=== PATIENT | male | born 1950 | race Caucasian/White ===

== ENCOUNTER 2016-09-12 18:39 | Inpatient (IN) | payer BC ==
[2016-09-12 23:10] LABS: Hematocrit 50 % (42-52); Hemoglobin 16.4 g/dl (14.0-18.0); Mean Corpuscular HGB Conc 33 g/dl (31-36); Mean Corpuscular Hemoglobin 28 pg (27-31); Mean Corpuscular Volume 86 fL (80-94); Mean Platelet Volume 10 um3 (7.4-10.4); Red Blood Count 5.76 10^6/ul (4.0-5.4); Red Cell Distribution Width 13 % (10.5-15); White Blood Count 6.8 10^3/ul (3.5-10.8)
[2016-09-12 23:43] LABS: ALT 22 U/L (7-52); AST 14 U/L (13-39); Albumin 4.4 g/dL (3.2-5.2); Alkaline Phosphatase 70 U/L (34-104); Anion Gap 9 mmol/L (2-11); BUN/Creatinine Ratio 16.7 (8-20); Blood Urea Nitrogen 19 mg/dL (6-24); CO2 Carbon Dioxide 26 mmol/L (22-32); Calcium 9.7 mg/dL (8.6-10.3); Chloride 101 mmol/L (101-111); EGFR African American 82.4 (>60); EGFR Non-African American 64.1 (>60); Glucose 149 mg/dL (70-100); Potassium 3.8 mmol/L (3.5-5.0); Sodium 136 mmol/L (133-145); Total Protein 7.4 g/dL (6.4-8.9)
[2016-09-12 23:48] LABS: Acetaminophen < 15 mcg/mL; Alcohol < 10 mg/dL (<10); Salicylate < 2.50 mg/dL (<30)
[2016-09-12 23:59] LABS: TSH (Thyroid Stimulating Horm) 4.46 mcIU/mL (0.34-5.60)
--- NOTE | 2016-09-13 00:31 | ED ---
Joanna Powers Salem, scribed for Adam Monique MD on 09/12/16 at 2251 . Complex/Multi-Sys Presentation - HPI Summary HPI Summary: Patient is a 66 y/o M who presents to the ED with loss of appetite for the past 1.5-2 weeks. He states that he has had very little to eat and drink since. He denies nausea or any pain, but reports trouble sleeping. Pt had a 15-20minute TIA on 08/24/2016 and pt followed up with his PCP a week afterwards. 5 days ago he saw his PCP again for this complaint. He states that he changed some of his medications, put him on Ativan and on Zoloft for depression, and cut down his DM medication to 1 metformin in the morning and evening. Pt lost 20lbs in 18 days. PMHx of DM. - History Of Current Complaint Chief Complaint: EDWeakness Time Seen by Provider: 09/12/16 22:36 Hx Obtained From: Patient Onset/Duration: Gradual Onset, Lasting Weeks, Still Present Timing: Constant Severity Currently: Moderate Severity Initially: Moderate Location: Negative Aggravating Factor(s): Nothing. Alleviating Factor(s): Nothing. Associated Signs And Symptoms: Positive: Other - Loss of appetite.. Negative: Nausea - Allergies/Home Medications Allergies/Adverse Reactions: Allergies Allergy/AdvReac Type Severity Reaction Status Date / Time Penicillin G Allergy Rash Verified 09/12/16 20:19 PMH/Surg Hx/FS Hx/Imm Hx Endocrine/Hematology History: Reports: Hx Diabetes Cardiovascular History: Reports: Hx Hypertension - Surgical History Surgery Procedure, Year, and Place: TITANIUM PLATE @C-3 PER PT. 2000 Infectious Disease History: No Infectious Disease History: Denies: Traveled Outside the [place] in Last 30 Days - Family History Known Family History: Positive: Other - No FMHx of dizziness. - Social History Alcohol Use: None Hx Substance Use: No Substance Use Type: Reports: None Hx Tobacco Use: No Smoking Status (MU): Never Smoked Tobacco Review of Systems Positive: Other - No pain. Trouble sleeping. Positive: Other - Loss of appetite. . Negative: Nausea All Other Systems Reviewed And Are Negative: Yes Physical Exam Triage Information Reviewed: Yes Vital Signs On Initial Exam: Initial Vitals Temp Pulse Resp BP Pulse Ox 97.2 F 90 16 152/79 98 09/12/16 18:47 06/19/17 18:47 09/12/16 18:47 09/12/16 18:47 09/12/16 18:47 Vital Signs Reviewed: Yes Appearance: Positive: Well-Appearing, No Pain Distress Skin: Positive: Warm, Skin Color Reflects Adequate Perfusion, Dry Head/Face: Positive: Normal Head/Face Inspection Eyes: Positive: Normal ENT: Positive: Other - DMM. Neck: Positive: Supple, Nontender Respiratory/Lung Sounds: Positive: Clear to Auscultation, Breath Sounds Present Cardiovascular: Positive: RRR Abdomen Description: Positive: Nontender, Soft Bowel Sounds: Positive: Present Musculoskeletal: Positive: Normal Neurological: Positive: Normal Psychiatric: Positive: Other - Flat affect. Diagnostics - Vital Signs Vital Signs Temp Pulse Resp BP Pulse Ox 09/12/16 21:40 98.3 F 62 18 149/83 99 09/12/16 20:15 97.6 F 87 18 123/76 100 09/12/16 18:47 97.2 F 90 16 152/79 98 - Laboratory Lab Results: Lab Results 09/12/16 09/12/16 Range/Units 22:55 22:55 WBC 6.8 (3.5-10.8) 10^3/ul RBC 5.76 H (4.0-5.4) 10^6/ul Hgb 16.4 (14.0-18.0) g/dl Hct 50 (42-52) % MCV 86 (80-94) fL MCH 28 (27-31) pg MCHC 33 (31-36) g/dl RDW 13 (10.5-15) % Plt Count 125 L (150-450) 10^3/ul MPV 10 (7.4-10.4) um3 Neut % (Auto) 47.0 (38-83) % Lymph % (Auto) 41.6 (25-47) % Cocke % (Auto) 9.0 (1-9) % Eos % (Auto) 1.8 (0-6) % Baso % (Auto) 0.6 (0-2) % Absolute Neuts (auto) 3.2 (1.5-7.7) 10^3/ul Absolute Lymphs (auto) 2.8 (1.0-4.8) 10^3/ul Absolute Monos (auto) 0.6 (0-0.8) 10^3/ul Absolute Eos (auto) 0.1 (0-0.6) 10^3/ul Absolute Basos (auto) 0 (0-0.2) 10^3/ul Absolute Nucleated RBC 0.01 10^3/ul Nucleated RBC % 0.2 Sodium 136 (133-145) mmol/L Potassium 3.8 (3.5-5.0) mmol/L Chloride 101 (101-111) mmol/L Carbon Dioxide 26 (22-32) mmol/L Anion Gap 9 (2-11) mmol/L BUN 19 (6-24) mg/dL Creatinine 1.14 (0.67-1.17) mg/dL Est GFR ( Amer) 82.4 (>60) Est GFR (Non-Af Amer) 64.1 (>60) BUN/Creatinine Ratio 16.7 (8-20) Glucose 149 H (70-100) mg/dL Calcium 9.7 (8.6-10.3) mg/dL Total Bilirubin 1.00 (0.2-1.0) mg/dL AST 14 (13-39) U/L ALT 22 (7-52) U/L Alkaline Phosphatase 70 (34-104) U/L Total Protein 7.4 (6.4-8.9) g/dL Albumin 4.4 (3.2-5.2) g/dL Globulin 3.0 (2-4) g/dL Albumin/Globulin Ratio 1.5 (1-3) TSH 4.46 (0.34-5.60) mcIU/mL Salicylates < 2.50 (<30) mg/dL Acetaminophen < 15 mcg/mL Serum Alcohol < 10 (<10) mg/dL Result Diagrams: 09/12/16 22:55 09/12/16 22:55 Lab Statement: Any lab studies that have been ordered have been reviewed, and results considered in the medical decision making process. Complex Multi-Symp Course/Dx Course Of Treatment: Mr. White is willing to speak with the mental health stained glass installer about his depression and is medically cleared. - Diagnoses Provider Diagnoses: Depression Discharge - Discharge Plan Condition: Stable Disposition: OTHER Discharge Disposition Comment: Pending mental health evaluation. Referrals: Edwardo Gee MD [Primary Care Provider] - The documentation as recorded by the Joanna ga Salem accurately reflects the service I personally performed and the decisions made by me, Adam Monique MD.
--- NOTE | 2016-09-13 02:25 | ED ---
Progress - Progress Note Progress Note: pt admitted with depression in stable condition to the mental health unit - Consult/PCP Time Called: 12:30 Course/Dx - Course Course Of Treatment: Mr. White is willing to speak with the mental health enamel pulverizer about his depression and is medically cleared. - Diagnoses Provider Diagnoses: Depression
[2016-09-13] MEDS ORDERED: diPHENhydraMINE PO* 50 MG ONE (02:34)
[2016-09-13] MEDS ORDERED: Acetaminophen TAB* 325 MG PO PRN (03:58)
[2016-09-13] MEDS ORDERED: Al Hydrox/Mg Hydrox/Simet LIQ* 30 ML UDC PO PRN (03:58)
[2016-09-13] MEDS: Vitamin THERAPEUTIC TAB PO SCH ×2 (09:10→09:31)
[2016-09-13] MEDS ORDERED: Mirtazapine TAB* 15 MG PO PRN (16:22)
[2016-09-13] MEDS: metFORMIN* 500 MG TAB PO SCH (17:26)
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
[2016-09-13] MEDS: Atorvastatin* 40 MG TAB PO SCH (21:09)
[2016-09-14] MEDS: Metoprolol Succinate XL TAB* 25 MG PO SCH (08:57)
[2016-09-14] MEDS: Vitamin THERAPEUTIC TAB PO SCH (08:57)
[2016-09-14] MEDS: metFORMIN* 500 MG TAB PO SCH ×2 (08:57→16:58)
[2016-09-14] MEDS: Ramipril CAP* 10 MG PO SCH (08:58)
[2016-09-14] MEDS: Sertraline* 100 MG TAB PO SCH (08:58)
--- NOTE | 2016-09-14 12:27 | PN ---
Subjective - Subjective Service Type: 98637 Hosp care 25 min moderate complexity Subjective: Patient reports ongoing significant depression. Patient reports getting only 1 hour of sleep last night. On approach, patient is visible in the milieu, but is not in the concurrent group. He continues to be flat in affect, PMR noted, and patient continues to be delayed in response. TP is linear and GD. Patient is med compliant. He reports 25% of breakfast eaten. Patient reports no SI/HI. ECT management for this episode of depression was recommended to patient as he has hx of treatment resistant depression. Patient was educated on ECT process. He was shown a video which shows ECT as it happens in the treatment room. He was able to view the placement of the IV, administration of muscle relaxant, the seizure, and the use of the oxygen bag mask during treatment. He was able to hear testimony of 3 patient's and how they responded to ECT. Patient reported he would like to go forward with ECT. In regard to patient's High suicide risk, patient is willing to have his daughter (Brittany Schwartz#[phone]) take possession of the 22 ana maría rifle, he does not have a pistol. Objective - Appearance Appearance: Healthy Appearing Dysmorphic Features: No Hygiene: Normal Grooming: Fairly Well Kept - Behavior Psychomotor Activities: Abnormal-Decreased Exhibits Abnormal Movement: Yes - Attitude and Relatedness Attitude and Relatedness: Cooperative Eye Contact: Poor - Speech Quality: Unpressured Latencies: Short Quantity: Terse - Mood Patient's Decription of Mood: Depressed - Affect Observed Affect: Depressed Affect Consistent with: Dysphoria - Thought Process Patient's Thought Process: Coherent Thought Content: No Passive Wish, No Suicidal Planning, No Homicidal Ideation, No Paranoid Ideation - Sensorium Experiencing Hallucinations: No, Sensorium is Clear Type of Hallucinations: Visual: No, Auditory: No, Command: No - Level of Consciousness Level of Consciousness: Alert Orientation: Yes Intact, Yes Orientated to Time, Yes Orientated to Place, Yes Orientated to Person - Impulse Control Impulse Control: Intact - Insight and Judgement Insight and Judgement: Good - Group Participation Particating in Group Activities: Yes - Medication Management Medication Management Adherence: Yes Assessment - Assessment Merits Inpatient Hospitalization: For Immediate Safety, For Stabilization Inpatient DSM-IV Dx: MDD, R, S w/o PFs Clinical Impression: 66yo male patient with PPHx significant for MDD, R, S and Treatment Resistant Depression self presents to [place] [facility] [place] reporting worsening depressive symptoms associated with SI no plan and also reported an inability to function at home. Patient has hx of TRD and suicide attempt. Family hx significant for depression and patient has family that has completed suicide. Patient has chronic medical issues and distressing financial pressures. Patient has hx of benefit of symptoms with ECT. He's had no care since the 2009 ECT. He presents on this admission with no SI, but is high in risk for suicide. Patient has a firearm in the home. He is med compliant. He has decided to pursue ECT. Plan - Plan Treatment Plan: Name: VANE LOPEZ II Birthdate: 1950 [id number] 1. Continue admission to [facility] for symptom mx. 2. Increase Zoloft from 50mg daily to 150mg po daily. 3. Patient has decided to pursue ECT for TRD. SW to work on referral per insurance approval. 4. Will order ECG as apart of ECT workup. 5. Patient gives staff permission to talk with his daughter(Brittany Schwartz#[phone]) in regard to taking possession of of his 22 ana maría rifle, he does not have a pistol. 6. Continue HTN, DM2, HLD, and Insomnia home meds as Rx'd by PCP. Will hold Meclezine, Ativan, Farxiga and Glimipirmide. 7. Fingerstick BS @ [facility]. 8. Continue compiling collateral information from [facility]-ECT tx and PCP( Pearl saucedo). 9. Patient to participate in milieu activities and groups. Medications: Current Medications Acetaminophen (Tylenol Tab*) 650 mg PO Q4H PRN PRN Reason: PAIN or TEMP > 101 F Al Hydrox/Mg Hydrox/Simethicone (Maalox Plus*) 30 ml PO Q4H PRN PRN Reason: INDIGESTION Atorvastatin Calcium (Lipitor*) 40 mg PO 2100 JOVANNA Last Admin: 09/13/16 21:09 Dose: 40 mg Diphenhydramine HCl (Benadryl Po*) 50 mg PO Q6H PRN PRN Reason: AGITATION/INSOMNIA Last Admin: 09/13/16 02:35 Dose: 50 mg Metformin HCl (Glucophage*) 1,000 mg PO 0800,1700 [facility] Last Admin: 09/14/16 08:57 Dose: 1,000 mg Metoprolol Succinate (Toprol Xl Tab*) 25 mg PO DAILY [facility] Last Admin: 09/14/16 08:57 Dose: 25 mg Mirtazapine (Remeron Tab*) 7.5 mg PO BEDTIME PRN PRN Reason: SLEEP Last Admin: 09/14/16 01:45 Dose: 7.5 mg Multivitamins (Theragran Tab*) 1 tab PO DAILY [facility] Last Admin: 09/14/16 08:57 Dose: 1 tab Ramipril (Altace Cap*) 10 mg PO DAILY [facility] Last Admin: 09/14/16 08:58 Dose: 10 mg Sertraline HCl (Zoloft*) 150 mg PO DAILY [facility] Last Admin: 09/14/16 08:58 Dose: 150 mg - Discharge Plan Discharge Plan: Inpatient Hospitalization Outpatient Program: [facility] Additional Comments: Plan to transfer to a facility with ECT as patient has TRD and has hx of benefit to ECT.
[2016-09-14] MEDS: Atorvastatin* 40 MG TAB PO SCH (20:09)
[2016-09-14] MEDS ORDERED: traZODone TAB* 100 MG PO SCH (21:00)
[2016-09-15 08:23] VITALS: BP 118/64
[2016-09-15] MEDS: Metoprolol Succinate XL TAB* 25 MG PO SCH (08:38)
[2016-09-15] MEDS: metFORMIN* 500 MG TAB PO SCH (08:38)
[2016-09-15] MEDS: Vitamin THERAPEUTIC TAB PO SCH (08:39)
[2016-09-15] MEDS: Sertraline* 100 MG TAB PO SCH (08:39)
[2016-09-15] MEDS: Ramipril CAP* 10 MG PO SCH (08:39)
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
== END 2016-09-15 12:50 | DRG 754 ==
LOC: ED 18:39 → BSU 09-13 02:56
PROVIDERS: ADMIT Psychiatry & Neurology Psychiatry; ATTEND Psychiatry & Neurology Psychiatry
DX: F32.9 Major depressive disorder, single episode, unspecified (principal); E11.9 Type 2 diabetes mellitus without complications; I10 Essential (primary) hypertension; Z79.84 Long term (current) use of oral hypoglycemic drugs; G47.33 Obstructive sleep apnea (adult) (pediatric); E78.5 Hyperlipidemia, unspecified; Z86.73 Personal history of transient ischemic attack (TIA), and cerebral infarction without residual deficits; Z88.0 Allergy status to penicillin; Z81.8 Family history of other mental and behavioral disorders
CPT/HCPCS: 36415; 80053; 80320; 80329; 84443; 85025; 99222; 99232; 99238; A9270-GY; G0480

== ENCOUNTER 2016-11-07 11:03 | Emergency (ER) | payer BC ==
[2016-11-07] MEDS ORDERED: NS 0.9% 1000 ML* 1,000 ML IV ONE (11:31)
[2016-11-07 11:50] LABS: Hematocrit 41 % (42-52); Hemoglobin 13.4 g/dl (14.0-18.0); Mean Corpuscular HGB Conc 33 g/dl (31-36); Mean Corpuscular Hemoglobin 29 pg (27-31); Mean Corpuscular Volume 88 fL (80-94); Mean Platelet Volume 10 um3 (7.4-10.4); Red Blood Count 4.66 10^6/ul (4.0-5.4); Red Cell Distribution Width 14 % (10.5-15); White Blood Count 6.7 10^3/ul (3.5-10.8)
[2016-11-07 12:05] LABS: Albumin 4.2 g/dL (3.2-5.2); BUN/Creatinine Ratio 12.8 (8-20); Calcium 9.3 mg/dL (8.6-10.3); EGFR African American 102.9 (>60); Globulin 2.7 g/dL (2-4); Potassium 4.1 mmol/L (3.5-5.0); Total Bilirubin 0.8 mg/dL (0.2-1.0); Total Protein 6.9 g/dL (6.4-8.9)
[2016-11-07] MEDS ORDERED: Iodixanol* (CONTRAST) 320 MG/ML 100 ML SDV IV ONE (12:39)
--- NOTE | 2016-11-07 13:46 | RAD ---
HISTORY: Head trauma, recent TIA COMPARISONS: December 07, 2015 TECHNIQUE: Multiple contiguous axial CT scans were obtained of the head without intravenous contrast. FINDINGS: HEMORRHAGE/INFARCT: There is no hemorrhage or acute infarct. MASSES/SHIFT: There is no mass or shift. EXTRA-AXIAL SPACES: There are no extra-axial fluid collections. SULCI AND VENTRICLES: The sulci and ventricles are normal in size and position for the patient's stated age. CEREBRUM: There are no focal parenchymal abnormalities. BRAINSTEM: There are no focal parenchymal abnormalities. CEREBELLUM: There are no focal parenchymal abnormalities. VESSELS: The vessels are grossly normal. PARANASAL SINUSES: The paranasal sinuses are clear. ORBITS: The orbits are unremarkable. BONES AND SOFT TISSUE: No bone or soft tissue abnormalities are noted. OTHER: None IMPRESSION: NO ACUTE INTRACRANIAL PATHOLOGY.
--- NOTE | 2016-11-07 13:49 | RAD ---
HISTORY: Trauma, recent weakness, right-sided pain COMPARISONS: MRI dated September 13, 2005 TECHNIQUE: Multiple contiguous axial CT scans were obtained of the cervical spine without intravenous contrast, with coronal and sagittal multiplanar reformations. FINDINGS: BRAIN: The visualized brain is unremarkable CENTRAL CANAL: Evaluation of the central canal is limited on CT technique; however, there is no obvious canalicular mass or epidural hemorrhage. ALIGNMENT: There is straightening of the cervical lordosis. VERTEBRAL BODIES: The patient is status post anterior cervical fusion at C5, C6, and C7. There is no appreciable hardware failure or osteolysis. There is no displaced fracture. JOINTS: There is an vertebral and facet osteoarthritis. MUSCULATURE: Unremarkable INTERVERTEBRAL DISCS: There is diffuse loss of intervertebral disc height. AXIAL IMAGES: C2-C3: There is bilateral uncovertebral hypertrophy. There is moderate right neural foraminal narrowing. There is no osseous central canal stenosis C3-C4: There is bilateral vertebral and facet hypertrophy. There is moderate bilateral neural foraminal narrowing. There is mild narrowing of central canal. A small central disc protrusion measuring 0.4 cm in depth. C4-C5: There is bilateral uncovertebral and facet hypertrophy. There is mild bilateral neuroforaminal narrowing. No osseous central canal stenosis. C5-C6: There is no osseous neural foraminal narrowing or central canal stenosis. C6-C7: There is no osseous neural foraminal narrowing or central canal stenosis. C7-T1: There is bilateral vertebral hypertrophy. There is no osseous neural foraminal narrowing or central canal stenosis SOFT TISSUES: The visualized soft tissues of the neck are unremarkable. The prevertebral fat stripe is preserved. OTHER: None. IMPRESSION: 1. STATUS POST ANTERIOR CERVICAL FUSION. 2. DEGENERATIVE DISC DISEASE AND OSTEOARTHRITIS, DESCRIBED ABOVE. 3. NO ACUTE OSSEOUS SPINE
--- NOTE | 2016-11-07 13:52 | RAD ---
HISTORY: Trauma, right-sided pain COMPARISONS: None TECHNIQUE: Multiple contiguous axial CT scans of the chest were obtained without intravenous contrast. Coronal and sagittal multiplanar reformations are also submitted for review. FINDINGS: NECK AND THYROID: The lower neck and thyroid are unremarkable. CHEST WALL: There is no lower cervical, axillary, or supraclavicular lymphadenopathy by size criteria. HEART AND PERICARDIUM: The heart is unremarkable. AORTA AND PULMONARY VASCULATURE: The aorta and pulmonary vasculature are normal. MEDIASTINUM: There is no mediastinal lymphadenopathy by size criteria. DIDIER: There is no hilar lymphadenopathy by size criteria. AIRWAY AND ESOPHAGUS: The airway is unremarkable, without endobronchial filling defect. The esophagus is grossly normal. LUNG PARENCHYMA: The lungs are clear. PLEURA: No pleural abnormalities are noted. UPPER ABDOMEN: The upper abdomen is unremarkable. BONES AND SOFT TISSUES: Mild degenerative changes are noted. The patient is status post anterior cervical fusion. OTHER: None. IMPRESSION: NO ACUTE CT PATHOLOGY OF THE VISUALIZED PORTION OF THE CHEST
[2016-11-07] MEDS ORDERED: Ketorolac INJ* 30 MG/ML 1 ML VIAL IV PUSH ONE (14:31)
[2016-11-07] MEDS ORDERED: HYDROcodone/ACETAMIN 5-325 MG* 1 TAB PO ONE (14:31)
[2016-11-07 15:12] VITALS: BP 173/88
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
== END 2016-11-07 15:22 | disposition home or self-care (01) ==
LOC: ED 11:03
DX: S20.219A Contusion of unspecified front wall of thorax, initial encounter (principal); S50.311A Abrasion of right elbow, initial encounter; S80.211A Abrasion, right knee, initial encounter; V18.0XXA Pedal cycle driver injured in noncollision transport accident in nontraffic accident, initial encounter; Y93.55 Activity, bike riding; Y92.9 Unspecified place or not applicable; R06.02 Shortness of breath; R00.1 Bradycardia, unspecified; E11.9 Type 2 diabetes mellitus without complications; E78.00 Pure hypercholesterolemia, unspecified; Z86.73 Personal history of transient ischemic attack (TIA), and cerebral infarction without residual deficits; F32.9 Major depressive disorder, single episode, unspecified; Z88.0 Allergy status to penicillin
CPT/HCPCS: 36415; 70450; 71260; 72125; 80053; 82550; 85025; 93005; 96361; 96374; 99283; J1885; Q9967

== ENCOUNTER 2016-12-15 12:44 | Inpatient (IN) | payer BC ==
[2016-12-15 13:39] LABS: Urine Bilirubin Negative (Negative); Urine Glucose 2+(150 mg/dL) (Negative); Urine Nitrite Negative (Negative)
[2016-12-15 13:43] LABS: Hematocrit 45 % (42-52); Hemoglobin 15.1 g/dl (14.0-18.0); Mean Corpuscular HGB Conc 34 g/dl (31-36); Mean Corpuscular Hemoglobin 30 pg (27-31); Mean Corpuscular Volume 89 fL (80-94); Mean Platelet Volume 10 um3 (7.4-10.4); Red Blood Count 5.04 10^6/ul (4.0-5.4); Red Cell Distribution Width 14 % (10.5-15); White Blood Count 6.2 10^3/ul (3.5-10.8)
[2016-12-15 13:51] LABS: Benzodiazepine Urine Screen None Detected (None Detect)
[2016-12-15 14:10] LABS: TSH (Thyroid Stimulating Horm) 3.44 mcIU/mL (0.34-5.60)
[2016-12-15 14:14] LABS: ALT 13 U/L (7-52); AST 12 U/L (13-39); Albumin 4.3 g/dL (3.2-5.2); Alkaline Phosphatase 99 U/L (34-104); Anion Gap 8 mmol/L (2-11); BUN/Creatinine Ratio 11.5 (8-20); Blood Urea Nitrogen 13 mg/dL (6-24); CO2 Carbon Dioxide 28 mmol/L (22-32); Calcium 9.9 mg/dL (8.6-10.3); Chloride 100 mmol/L (101-111); EGFR African American 83.2 (>60); EGFR Non-African American 64.7 (>60); Globulin 3.2 g/dL (2-4); Glucose 224 mg/dL (70-100); Potassium 3.6 mmol/L (3.5-5.0); Sodium 136 mmol/L (133-145); Total Protein 7.5 g/dL (6.4-8.9)
[2016-12-15 14:15] LABS: Acetaminophen < 15 mcg/mL; Alcohol < 10 mg/dL (<10); Salicylate < 2.50 mg/dL (<30)
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
[2016-12-15] MEDS ORDERED: Acetaminophen TAB* 325 MG PO PRN (21:49)
[2016-12-15] MEDS ORDERED: Al Hydrox/Mg Hydrox/Simet LIQ* 30 ML UDC PO PRN (21:49)
[2016-12-15] MEDS ORDERED: traZODone TAB* 100 MG PO SCH (22:00)
--- NOTE | 2016-12-15 23:44 | ED ---
Colby Powers Benjamin, scribed for Lucio Salas MD on 12/15/16 at 2204 . Progress - Progress Note Progress Note: 66yo male signout from Dr. Steward. Pt is medically cleared and is staying for MHE. - Consult/PCP Time Called: 16:15 Course/Dx - Course Course Of Treatment: Did the voluntary paperwork .. Pt is in stable condition. Will be admitted to [facility]. - Diagnoses Provider Diagnoses: Depression The documentation as recorded by the Colby ga Benjamin accurately reflects the service I personally performed and the decisions made by Josue rojas Drew, MD.
[2016-12-16] MEDS: Ramipril CAP* 10 MG PO SCH (08:50)
[2016-12-16] MEDS: metFORMIN* 1,000 MG TAB PO SCH ×2 (08:51→17:09)
[2016-12-16] MEDS ORDERED: Sertraline* 50 MG TAB PO SCH (09:00)
[2016-12-16] MEDS ORDERED: Metoprolol Succinate XL TAB* 25 MG PO SCH (09:00)
[2016-12-16] MEDS ORDERED: Vitamin THERAPEUTIC TAB PO SCH (09:00)
[2016-12-16] MEDS: DAPAGLIFLOZIN 10 MG PO SCH (10:03)
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
--- NOTE | 2016-12-16 13:58 | PN ---
[facility]: Group Therapy Note - Service Type Service Type: [id number] Group Psychotherapy - Cognitive Behavioral Group Therapy ( CBT):Patient was attentive and participatory in CBT programming this morning, and remained in good behavioral control. Patient expressed positive insights regarding relevant treatment interventions and goals.
[2016-12-16] MEDS: buPROPion SR TAB.SR* 100 MG PO SCH (17:08)
[2016-12-16] MEDS: Atorvastatin* 20 MG TAB PO SCH (17:08)
[2016-12-16] MEDS: Zolpidem TAB* 5 MG PO SCH (20:35)
[2016-12-17] MEDS: Metoprolol Succinate XL TAB* 25 MG PO SCH (08:04)
[2016-12-17] MEDS: buPROPion SR TAB.SR* 100 MG PO SCH (08:04)
[2016-12-17] MEDS: DAPAGLIFLOZIN 10 MG PO SCH (08:05)
[2016-12-17] MEDS: metFORMIN* 1,000 MG TAB PO SCH ×2 (08:05→17:15)
[2016-12-17] MEDS: Ramipril CAP* 10 MG PO SCH (08:05)
[2016-12-17] MEDS: Atorvastatin* 20 MG TAB PO SCH (17:15)
[2016-12-17] MEDS: Zolpidem TAB* 5 MG PO SCH (21:05)
[2016-12-18] MEDS: Ramipril CAP* 10 MG PO SCH (08:15)
[2016-12-18] MEDS: Metoprolol Succinate XL TAB* 25 MG PO SCH (08:16)
[2016-12-18] MEDS: metFORMIN* 1,000 MG TAB PO SCH ×2 (08:16→16:38)
[2016-12-18] MEDS: DAPAGLIFLOZIN 10 MG PO SCH (08:17)
[2016-12-18] MEDS: buPROPion SR TAB.SR* 100 MG PO SCH (08:17)
--- NOTE | 2016-12-18 14:01 | PN ---
Subjective - Subjective Service Type: 59366 Hosp care 15 min low complexity Subjective: Mr. Lopez continues to verbalize severe depressive symptoms manifested as sadness, poor energy, lack of motivation, hopelessness and suicidal thoughts along with poor sleep and poor appetite. Reports that he had tried everything including augmentation therapies. Taking meds as prescribed and tolerating them well. Denies A/V hallucinations. Objective - Appearance Appearance: Healthy Appearing Dysmorphic Features: No Hygiene: Normal Grooming: Disheveled - Behavior Psychomotor Activities: Normal Exhibits Abnormal Movement: No - Attitude and Relatedness Attitude and Relatedness: Appropriate Eye Contact: Fair - Speech Quality: Unpressured Latencies: Long Quantity: Appropriate - Mood Patient's Decription of Mood: "Sad" - Affect Observed Affect: Depressed Affect Consistent with: Dysphoria - Thought Process Patient's Thought Process: Coherent, Goal Directed Thought Content: Yes Passive Wish, No Suicidal Planning, No Homicidal Ideation, No Paranoid Ideation - Sensorium Experiencing Hallucinations: No, Sensorium is Clear Type of Hallucinations: Visual: No, Auditory: No, Command: No - Level of Consciousness Level of Consciousness: Alert Orientation: Yes Intact, Yes Orientated to Time, Yes Orientated to Place, Yes Orientated to Person - Impulse Control Impulse Control: Intact - Insight and Judgement Insight and Judgement: Good - Group Participation Particating in Group Activities: Yes - Medication Management Medication Management Adherence: Yes Assessment - Assessment Merits Inpatient Hospitalization: For Stabilization, Pending Safe DC Plan Inpatient DSM-IV Dx: Major depressive d/o, recurrent, severe w/o psychosis. Clinical Impression: Continues to be severely depressed. Plan - Plan Treatment Plan: Name: VANE LOPEZ II Birthdate: 1950 [id number] Continued Medication Management: Continue Outpt Medication Medications: Current Medications Acetaminophen (Tylenol Tab*) 650 mg PO Q4H PRN PRN Reason: PAIN or TEMP > 101 F Al Hydrox/Mg Hydrox/Simethicone (Maalox Plus*) 30 ml PO Q4H PRN PRN Reason: INDIGESTION Atorvastatin Calcium (Lipitor*) 20 mg PO QPM [facility] Last Admin: 12/17/16 17:15 Dose: 20 mg Bupropion HCl (Wellbutrin Sr Tab*) 100 mg PO DAILY [facility] Last Admin: 12/18/16 08:17 Dose: 100 mg Metformin HCl (Glucophage*) 1,000 mg PO 0800,1700 [facility] Last Admin: 12/18/16 08:16 Dose: 1,000 mg Metoprolol Succinate (Toprol Xl Tab*) 25 mg PO DAILY [facility] Last Admin: 12/18/16 08:16 Dose: Not Given Non Formulary Med* Dapagliflozin 10mg Tab 1 admin PO DAILY [facility] Last Admin: 12/18/16 08:17 Dose: Not Given Ramipril (Altace Cap*) 10 mg PO DAILY [facility] Last Admin: 12/18/16 08:15 Dose: 10 mg Zolpidem Tartrate (Ambien Tab*) 5 mg PO BEDTIME [facility] Last Admin: 12/17/16 21:05 Dose: 5 mg - Discharge Plan Discharge Plan: Consider Longer Term Tx Outpatient Program: TBD
[2016-12-18] MEDS: Atorvastatin* 20 MG TAB PO SCH (16:41)
[2016-12-18] MEDS: Zolpidem TAB* 5 MG PO SCH (20:36)
[2016-12-19] MEDS: Metoprolol Succinate XL TAB* 25 MG PO SCH (09:38)
[2016-12-19] MEDS: buPROPion SR TAB.SR* 100 MG PO SCH (09:38)
[2016-12-19] MEDS: DAPAGLIFLOZIN 10 MG PO SCH (09:38)
[2016-12-19] MEDS: metFORMIN* 1,000 MG TAB PO SCH ×2 (09:38→18:50)
[2016-12-19] MEDS: Ramipril CAP* 10 MG PO SCH (09:39)
--- NOTE | 2016-12-19 16:24 | PN ---
Subjective - Subjective Service Type: 76211 Hosp care 25 min moderate complexity Subjective: Patient is dysphoric with flat affect. He reports poor sleep and appetite. He states ambien was ineffective. He is agreeable to an EKG in order to potentially pursue other medications for intractable depression. His daughter, Kavitha, visited. She reports he has not slept well for 3 months. He tends to have a poor appetite then binges on carb-heavy foods. She states his blood glucose range is similar to recent levels while here. Kavitha states he recently saw a neurologist but cannot recall the name. Patient's PCP, Dr Gee referred him to PT, which was supposed to start today. Kavitha called and cancelled notifying them of his hospitalization. She states that Vane is taoism and would likely benefit from paper machine backtender consult. She reports that Dr Lynn at [facility] has tried various SSRIs. These often came with side effects such as: h/a, dry mouth, nausea and diarrhea. Objective - Appearance Appearance: Thin Framed Dysmorphic Features: Yes Hygiene: Normal Grooming: Fairly Well Kept - Behavior Psychomotor Activities: Abnormal-Decreased - psychomotor retardation Exhibits Abnormal Movement: Yes - Attitude and Relatedness Attitude and Relatedness: Withdrawn Eye Contact: Fair - Speech Quality: Unpressured Latencies: Normal Quantity: Appropriate - Mood Patient's Decription of Mood: "Sad" - Affect Observed Affect: Depressed Affect Consistent with: Dysphoria - Thought Process Patient's Thought Process: Coherent Thought Content: Yes Passive Wish, No Suicidal Planning, No Homicidal Ideation, No Paranoid Ideation - Sensorium Experiencing Hallucinations: No, Sensorium is Clear Type of Hallucinations: Visual: No, Auditory: No, Command: No - Level of Consciousness Level of Consciousness: Alert Orientation: Yes Intact, Yes Orientated to Time, Yes Orientated to Place, Yes Orientated to Person - Impulse Control Impulse Control: Intact - Insight and Judgement Insight and Judgement: Fair - Group Participation Particating in Group Activities: Yes - Medication Management Medication Management Adherence: Yes Assessment - Assessment Merits Inpatient Hospitalization: For Immediate Safety, For Stabilization, For Discharge Planning Inpatient DSM-IV Dx: Major depressive d/o, recurrent, severe w/o psychosis. Plan - Plan Treatment Plan: Name: VANE LOPEZ II Birthdate: 1950 [id number] Obtain EKG, PT consult and paper machine backtender consult. Inquire about recent neurologist evaluation. Continue current medications and add quetiapine for mood, appetite and sleep. Continued Medication Management: Different Medication Medications: Current Medications Acetaminophen (Tylenol Tab*) 650 mg PO Q4H PRN PRN Reason: PAIN or TEMP > 101 F Al Hydrox/Mg Hydrox/Simethicone (Maalox Plus*) 30 ml PO Q4H PRN PRN Reason: INDIGESTION Atorvastatin Calcium (Lipitor*) 20 mg PO QPM [facility] Last Admin: 12/18/16 16:41 Dose: 20 mg Bupropion HCl (Wellbutrin Sr Tab*) 100 mg PO DAILY [facility] Last Admin: 12/19/16 09:38 Dose: 100 mg Metformin HCl (Glucophage*) 1,000 mg PO 0800,1700 [facility] Last Admin: 12/19/16 09:38 Dose: 1,000 mg Metoprolol Succinate (Toprol Xl Tab*) 25 mg PO DAILY [facility] Last Admin: 12/19/16 09:38 Dose: 25 mg Non Formulary Med* Dapagliflozin 10mg Tab 1 admin PO DAILY [facility] Last Admin: 12/19/16 09:38 Dose: Not Given Quetiapine Fumarate (Seroquel Tab*) 50 mg PO BEDTIME [facility] Ramipril (Altace Cap*) 10 mg PO DAILY [facility] Last Admin: 12/19/16 09:39 Dose: 10 mg - Discharge Plan Discharge Plan: Outpatient Follow Up Outpatient Program: [facility]
[2016-12-19] MEDS ORDERED: LORazepam TAB(*) 1 MG PO PRN (16:27)
[2016-12-19] MEDS: Atorvastatin* 20 MG TAB PO SCH (18:50)
[2016-12-19] MEDS ORDERED: QUEtiapine TAB* 25 MG PO SCH (21:00)
[2016-12-20] MEDS: metFORMIN* 1,000 MG TAB PO SCH (08:41)
[2016-12-20] MEDS: Metoprolol Succinate XL TAB* 25 MG PO SCH (08:41)
[2016-12-20] MEDS: Ramipril CAP* 10 MG PO SCH (08:41)
[2016-12-20] MEDS: buPROPion SR TAB.SR* 100 MG PO SCH (08:41)
[2016-12-20] MEDS: DAPAGLIFLOZIN 10 MG PO SCH (10:46)
[2016-12-20] MEDS ORDERED: buPROPion SR TAB.SR* 150 MG PO SCH (11:45)
--- NOTE | 2016-12-20 15:25 | PN ---
Subjective - Subjective Service Type: 53763 Hosp care 15 min low complexity Subjective: Patient reports no improvement in mood or energy over the weekend. He reports his stools continue to he loose. Patient reports ongoing poor sleep and appetite. Patient is amenable to med modification. He gives informed consent to start Ritalin 5mg po BID for TRD. Side effect on CV system discussed and increased monitoring of his BP and HR were recommended while on this med. Patient also encouraged to increase his po intake of fluid and meals. Patient amenable and acknowledged understanding. Patient denies SI/HI and AH/VH. Objective - Appearance Appearance: Thin Framed Dysmorphic Features: No Hygiene: Normal Grooming: Fairly Well Kept - Behavior Psychomotor Activities: Abnormal-Decreased Exhibits Abnormal Movement: No - Attitude and Relatedness Attitude and Relatedness: Cooperative Eye Contact: Fair - Speech Quality: Unpressured Latencies: Short Quantity: Terse - Mood Patient's Decription of Mood: depressed - Affect Observed Affect: Depressed Affect Consistent with: Dysphoria - Thought Process Patient's Thought Process: Impoverished Thought Content: No Passive Wish, No Suicidal Planning, No Homicidal Ideation, No Paranoid Ideation - Sensorium Experiencing Hallucinations: No, Sensorium is Clear Type of Hallucinations: Visual: No, Auditory: No, Command: No - Level of Consciousness Level of Consciousness: Alert Orientation: Yes Intact, Yes Orientated to Time, Yes Orientated to Place, Yes Orientated to Person - Impulse Control Impulse Control: Intact - Insight and Judgement Insight and Judgement: Fair - Group Participation Particating in Group Activities: Yes - Medication Management Medication Management Adherence: Yes Assessment - Assessment Merits Inpatient Hospitalization: For Immediate Safety, For Stabilization Inpatient DSM-IV Dx: Major depressive d/o, recurrent, severe w/o psychosis. Plan - Plan Treatment Plan: Name: VANE LOPEZ II Birthdate: 1950 [id number] PLAN: ------ 1. Continue admission to [facility] for symptom mx. 2. Will D/C Wellbutrin due to ineffectiveness and hx of use prior with no benefit per outpt MH provider. 3. D/C Ambien due to ineffectiveness on insomnia. 4. Continue HTN, DM2, and HLD home meds as Rx'd by PCP. 5. Patient gives informed consent to start Ritalin 5mg po BID(7am and 2pm) for TRD. 6. Will continue Seroquel increased from 50mg to 150mg po qhs for intractable insomnia. 7. Will D/C Metformin per PCP recommendation as it is known to cause loose stools/ diarrhea. 8. Fingerstick BS @ [facility]. 9. Vitamins KEAD and B vitamins levels due to question of GI malabsorption with hx of diarrhea since his 07/2016 TIA and hx of Partial Colectomy - PENDING. 10. Neuro consulted, Dr. Rios to eval and recommend treatment of post CVA depression. 11. Continue compiling collateral information from [facility] in [place]. 12. Collateral obtained from PCP(Pearl saucedo) and [facility] provider. 13. Patient to participate in milieu activities and groups. Continued Medication Management: Different Medication Medications: Current Medications Acetaminophen (Tylenol Tab*) 650 mg PO Q4H PRN PRN Reason: PAIN or TEMP > 101 F Al Hydrox/Mg Hydrox/Simethicone (Maalox Plus*) 30 ml PO Q4H PRN PRN Reason: INDIGESTION Atorvastatin Calcium (Lipitor*) 20 mg PO QPM [facility] Last Admin: 12/19/16 18:50 Dose: 20 mg Bupropion HCl (Wellbutrin Sr Tab*) 150 mg PO DAILY [facility] Lorazepam (Ativan Tab(*)) 1 mg PO BEDTIME PRN PRN Reason: AGITATION/ANXIETY/INSOMNIA Metoprolol Succinate (Toprol Xl Tab*) 25 mg PO DAILY [facility] Last Admin: 12/20/16 08:41 Dose: 25 mg Non Formulary Med* Dapagliflozin 10mg Tab 1 admin PO DAILY [facility] Last Admin: 12/20/16 10:46 Dose: Not Given Quetiapine Fumarate (Seroquel Tab*) 150 mg PO BEDTIME [facility] Ramipril (Altace Cap*) 10 mg PO DAILY [facility] Last Admin: 12/20/16 08:41 Dose: 10 mg - Discharge Plan Discharge Plan: Outpatient Follow Up Outpatient Program: [facility] Additional Comments: Neurology consult.
[2016-12-20] MEDS: Atorvastatin* 20 MG TAB PO SCH (17:20)
[2016-12-20] MEDS: Aspirin EC Low Dose* 81 MG TAB.EC PO SCH (17:20)
[2016-12-20] MEDS ORDERED: QUEtiapine TAB* 100 MG PO SCH (21:00)
--- NOTE | 2016-12-20 21:54 | CONS ---
NEUROLOGY CONSULTATION: DATE OF CONSULT: 12/20/16 LOCATION: He is an inpatient, room 213. REFERRING PROVIDER: Tariq Barbosa MD CHIEF COMPLAINT: History of possible transient ischemic attack, depression. HISTORY OF PRESENT ILLNESS: Pedro White is a 66-year-old right-handed man who was admitted to the mental health unit on 12/15/16 with recurrent depression. He was hospitalized earlier this summer with depression refractory to medical therapy and was transferred to [place] where he had ECT. His depression remains refractory to treatment. He had an episode on 08/24/15 when he was in [place]. He was speaking to his son and could not get the words out. He would make noise, but not the words he intended to produce. He knew what he wanted to say. It lasted about 15 minutes and resolved. There was no headache, numbness, change in vision, or weakness of his limbs. He was hospitalized at a hospital in [place], [place] overnight. He stated he had an MRI scan of the brain, carotid ultrasound, and an echocardiogram and was told that they were all normal. He was started on aspirin therapy. He has a history of hyperlipidemia and has been on statin for years. He has a history of diabetes as well, treated with oral hypoglycemic agents. He is a nonsmoker. There is no history of heart disease. PAST MEDICAL HISTORY: Notable for diabetes, hypertension, dyslipidemia, recurrent depression. CURRENT MEDICATIONS: Consist of: 1. Lipitor 20 mg p.o. daily. 2. Methylphenidate 5 mg p.o. b.i.d. 3. Metoprolol 25 mg p.o. daily. 4. Quetiapine 150 mg p.o. daily. 5. Ramipril 10 mg p.o. daily. ALLERGIES: He is allergic to PENICILLIN. REVIEW OF SYSTEMS: Negative for headaches. He has had cervical spine surgery years ago. He has chronic numbness in his feet. He feels unsteady, but has not had any falls. FAMILY HISTORY: Noncontributory. PHYSICAL EXAMINATION: He is well-nourished and well-hydrated. Temperature 97.4 temporally, blood pressure 118/68, heart rate 66 and regular, respirations 16. Oxygen saturation is 99% on room air. Heart is in a regular rate and rhythm without murmurs. Lungs are clear bilaterally. Carotid pulses are present and there are no cervical bruits. Neurological Exam: Pupils, fundi, and eye movements are normal. Visual lovelace are full to confrontation. Facial musculature and facial sensation are intact and symmetric. Palate and tongue appear normal and speech is clear without dysarthria. Hearing is intact and neck strength is normal. Motor exam reveals some mild spastic catch in both legs. He has good strength proximally and distally in upper and lower extremities. Sensory exam is diminished to light touch in his feet, diminished pin discrimination in a stocking fashion to about half way up the calves. Romberg' s sign is present. Reflexes are hypoactive in the arms, brisk at the knees, trace at the ankles. He has bilateral plantar extensor signs. Gait is a little bit spastic and wide-based. He is alert and oriented and a good detailed historian. Memory is intact and language is slim. He has good attention, concentration, and fund of knowledge. DIAGNOSTIC STUDIES/LAB DATA: Laboratory data includes a chemistry profile notable for a glucose of 224 and otherwise a fairly unremarkable chemistry profile. TSH and vitamin B12 were normal on 12/16/16. CBC is unremarkable. CT scan of the brain from 11/07/16 was reviewed and looks normal and was interpreted as such. IMPRESSION: Possible dominant hemispheric transient ischemic attack. He had a workup in [place] when he was there and apparently it was negative for stroke. His vascular risk factors are currently under control other than blood glucose control, which is suboptimal. I agree with continuing aspirin therapy. He should remain on the statin as well. I do not think his depression is related to his transient ischemic attack. There is a pretty significant risk of depression in patients with hemispheric strokes dominant hemisphere, but not after transient ischemic attack. I have discussed my impression with Dr. Barbosa. [id number]/[facility] #: [id number] MARIBEL
[2016-12-21 00:47] LABS: Vitamin K Level 0.57 ng/mL (0.10-2.20)
[2016-12-21] MEDS: Methylphenidate TAB* 5 MG PO SCH ×2 (07:30→14:03)
[2016-12-21] MEDS: DAPAGLIFLOZIN 10 MG PO SCH (07:57)
[2016-12-21 08:39] LABS: HDL Cholesterol 34.2 mg/dL
[2016-12-21] MEDS: Aspirin EC Low Dose* 81 MG TAB.EC PO SCH (09:30)
[2016-12-21] MEDS: Metoprolol Succinate XL TAB* 25 MG PO SCH (09:31)
[2016-12-21] MEDS: Ramipril CAP* 10 MG PO SCH (09:35)
--- NOTE | 2016-12-21 13:43 | PN ---
Subjective - Subjective Service Type: 11625 Hosp care 15 min low complexity Subjective: Patient visible in the milieu, isolating but engages staff when approached. Patient reports improved sleep last night on Seroquel 150mg, up to 4 hrs. Patient is amenable to further increase of Seroquel to 200mg po qhs. Patient reports ongoing intense depressive symptoms. Patient reports noticing no improvement to his mood or energy on Ritalin started this morning. Patient is amenable to increasing Ritalin from 5mg po BID to 10mg po BID. Patient reports fleeting SI with no plan. Objective - Appearance Appearance: Thin Framed Dysmorphic Features: No Hygiene: Normal Grooming: Fairly Well Kept - Behavior Psychomotor Activities: Normal Exhibits Abnormal Movement: No - Attitude and Relatedness Attitude and Relatedness: Cooperative Eye Contact: Fair - Speech Quality: Unpressured Latencies: Normal Quantity: Terse - Mood Patient's Decription of Mood: depressed - Affect Observed Affect: Depressed Affect Consistent with: Dysphoria - Thought Process Patient's Thought Process: Coherent Thought Content: No Passive Wish, No Suicidal Planning, No Homicidal Ideation, No Paranoid Ideation - Sensorium Experiencing Hallucinations: No, Sensorium is Clear Type of Hallucinations: Visual: No, Auditory: No, Command: No - Level of Consciousness Level of Consciousness: Alert Orientation: Yes Intact, Yes Orientated to Time, Yes Orientated to Place, Yes Orientated to Person - Impulse Control Impulse Control: Intact - Insight and Judgement Insight and Judgement: Fair - Group Participation Particating in Group Activities: No - Medication Management Medication Management Adherence: Yes Assessment - Assessment Merits Inpatient Hospitalization: For Immediate Safety, For Stabilization Inpatient DSM-IV Dx: Major depressive d/o, recurrent, severe w/o psychosis. Plan - Plan Treatment Plan: Name: VANE LOPEZ II Birthdate: 1950 [id number] PLAN: ------ 1. Continue admission to [facility] for symptom mx. 2. Will D/C Wellbutrin due to ineffectiveness and hx of use prior with no benefit per outpt MH provider. 3. D/C Ambien due to ineffectiveness on insomnia. 4. Continue HTN, DM2, and HLD home meds as Rx'd by PCP. 5. Continue Ritalin at increased dose from 5mg po BID to 10mg po BID(7am and 2pm ) for TRD. 6. Continue Seroquel at increased dose from 150mg to 200mg po qhs for intractable insomnia. 7. Continue to HOLD Metformin per PCP recommendation as it is known to cause loose stools/ diarrhea. Monitoring stools. 8. Fingerstick BS @ [facility]. 9. Vitamins KEAD and B vitamins levels due to question of GI malabsorption with hx of diarrhea since his 07/2016 TIA and hx of Partial Colectomy - PENDING. 10. Neuro consulted, Dr. Rios to eval and recommend treatment of post CVA depression. 11. Continue compiling collateral information from [facility] in [place]. 12. Collateral obtained from PCP(Kangchelsey saucedo) and [facility] provider. 13. Patient to participate in milieu activities and groups. Continued Medication Management: Different Medication Medications: Current Medications Acetaminophen (Tylenol Tab*) 650 mg PO Q4H PRN PRN Reason: PAIN or TEMP > 101 F Al Hydrox/Mg Hydrox/Simethicone (Maalox Plus*) 30 ml PO Q4H PRN PRN Reason: INDIGESTION Aspirin (Aspirin Ec Low Dose*) 81 mg PO DAILY [facility] Last Admin: 12/21/16 09:30 Dose: 81 mg Atorvastatin Calcium (Lipitor*) 20 mg PO QPM [facility] Last Admin: 12/20/16 17:20 Dose: 20 mg Lorazepam (Ativan Tab(*)) 1 mg PO BEDTIME PRN PRN Reason: AGITATION/ANXIETY/INSOMNIA Methylphenidate HCl (Ritalin Tab*) 5 mg PO 0700,1400 [facility] Last Admin: 12/21/16 07:30 Dose: 5 mg Metoprolol Succinate (Toprol Xl Tab*) 25 mg PO DAILY [facility] Last Admin: 12/21/16 09:31 Dose: Not Given Non Formulary Med* Dapagliflozin 10mg Tab 1 admin PO DAILY [facility] Last Admin: 12/21/16 07:57 Dose: Not Given Quetiapine Fumarate (Seroquel Tab*) 150 mg PO BEDTIME [facility] Last Admin: 12/20/16 20:38 Dose: 150 mg Ramipril (Altace Cap*) 10 mg PO DAILY [facility] Last Admin: 12/21/16 09:35 Dose: Not Given - Discharge Plan Discharge Plan: Outpatient Follow Up Additional Comments: Neurology consult.
[2016-12-21 15:08] LABS: Vitamin A, S 59.6 mcg/dL (32.5-78.0)
[2016-12-21] MEDS: Atorvastatin* 20 MG TAB PO SCH (18:21)
[2016-12-21] MEDS: QUEtiapine TAB* 100 MG PO SCH (21:41)
[2016-12-22 02:34] LABS: Vitamin E 7.5 mg/L (5.5 - 17.0)
[2016-12-22] MEDS: Methylphenidate TAB* 5 MG PO SCH ×2 (07:21→14:11)
[2016-12-22] MEDS: Aspirin EC Low Dose* 81 MG TAB.EC PO SCH (09:54)
[2016-12-22] MEDS: Metoprolol Succinate XL TAB* 25 MG PO SCH (09:54)
[2016-12-22] MEDS: Ramipril CAP* 10 MG PO SCH (09:55)
[2016-12-22] MEDS: DAPAGLIFLOZIN 10 MG PO SCH (09:55)
--- NOTE | 2016-12-22 10:13 | PN ---
Subjective - Subjective Service Type: 29805 Hosp care 15 min low complexity Subjective: Patient visible in the milieu, isolated. He is depressed in affect and manner. Patient reports improved sleep and po intake but reports ongoing lt. headedness. Patient informed GI will be consulted on his ongoing diarrhea. He was informed Loperamide 4mg x1 will be ordered and a PRN Loperamide will be onboard to be given after each loose stool. Patient is med compliant and reports no med s/e's on Ritalin at 10mg po BID. Patient amenable to starting Zoloft at 100mg po qam for ongoing anxiety and depression. Patient reports ongoing fleeting SI with no plan. Objective - Appearance Appearance: Thin Framed Dysmorphic Features: No Hygiene: Normal Grooming: Fairly Well Kept - Behavior Psychomotor Activities: Abnormal-Decreased Exhibits Abnormal Movement: No - Attitude and Relatedness Attitude and Relatedness: Cooperative Eye Contact: Poor - Speech Quality: Unpressured Latencies: Normal Quantity: Terse - Mood Patient's Decription of Mood: depressed - Affect Observed Affect: Depressed Affect Consistent with: Dysphoria - Thought Process Patient's Thought Process: Coherent Thought Content: No Passive Wish, No Suicidal Planning, No Homicidal Ideation, No Paranoid Ideation - Sensorium Experiencing Hallucinations: No, Sensorium is Clear Type of Hallucinations: Visual: No, Auditory: No, Command: No - Level of Consciousness Level of Consciousness: Alert Orientation: Yes Intact, Yes Orientated to Time, Yes Orientated to Place, Yes Orientated to Person - Impulse Control Impulse Control: Intact - Insight and Judgement Insight and Judgement: Fair - Group Participation Particating in Group Activities: No - Medication Management Medication Management Adherence: Yes Assessment - Assessment Merits Inpatient Hospitalization: For Immediate Safety, For Stabilization Inpatient DSM-IV Dx: Major depressive d/o, recurrent, severe w/o psychosis. Plan - Plan Treatment Plan: Name: VANE LOPEZ II Birthdate: 1950 [id number] PLAN: ------ 1. Continue admission to [facility] for symptom mx. 2. Will D/C Wellbutrin due to ineffectiveness and hx of use prior with no benefit per outpt MH provider. 3. D/C Ambien due to ineffectiveness on insomnia. 4. Continue HTN, DM2, and HLD home meds as Rx'd by PCP. 5. Continue Ritalin 10mg po BID(7am and 2pm) for TRD. 6. Patient gives informed consent to start Zoloft at 100mg po qam for anxiety/ mood. 7. Continue Seroquel 200mg po qhs for intractable insomnia. 8. Continue to HOLD Metformin per PCP recommendation as it is known to cause loose stools/ diarrhea. Monitoring stools. 9. Fingerstick BS @ [facility]. 10. Start Loperamide 4mg po x1 today 12/22/16. Continue Loperamide 2mg po BID PRN after each watery stool. 11. GI consulted today for eval and treatment of daily diarrhea since TIA on 2016. 12. Vitamins KEAD and B vitamins levels due to question of GI malabsorption with hx of diarrhea since his 07/2016 TIA and hx of Partial Colectomy - PENDING. 13. Neuro consulted, Dr. Rios to eval and recommend treatment of post CVA depression. 14. Continue compiling collateral information from [facility] in [place]. 15. Collateral obtained from PCP(Pearl saucedo) and [facility] provider. 16. Patient to participate in milieu activities and groups. Continued Medication Management: Different Medication Medications: Current Medications Acetaminophen (Tylenol Tab*) 650 mg PO Q4H PRN PRN Reason: PAIN or TEMP > 101 F Al Hydrox/Mg Hydrox/Simethicone (Maalox Plus*) 30 ml PO Q4H PRN PRN Reason: INDIGESTION Aspirin (Aspirin Ec Low Dose*) 81 mg PO DAILY [facility] Last Admin: 12/22/16 09:54 Dose: 81 mg Atorvastatin Calcium (Lipitor*) 20 mg PO QPM [facility] Last Admin: 12/21/16 18:21 Dose: 20 mg Lorazepam (Ativan Tab(*)) 1 mg PO BEDTIME PRN PRN Reason: AGITATION/ANXIETY/INSOMNIA Methylphenidate HCl (Ritalin Tab*) 10 mg PO 0700,1400 [facility] Last Admin: 12/22/16 07:21 Dose: 10 mg Metoprolol Succinate (Toprol Xl Tab*) 25 mg PO DAILY [facility] Last Admin: 12/22/16 09:54 Dose: 25 mg Non Formulary Med* Dapagliflozin 10mg Tab 1 admin PO DAILY [facility] Last Admin: 12/22/16 09:55 Dose: Not Given Quetiapine Fumarate (Seroquel Tab*) 200 mg PO BEDTIME [facility] Last Admin: 12/21/16 21:41 Dose: 200 mg Ramipril (Altace Cap*) 10 mg PO DAILY [facility] Last Admin: 12/22/16 09:55 Dose: 10 mg - Discharge Plan Discharge Plan: Outpatient Follow Up Additional Comments: Neurology consult.
[2016-12-22] MEDS ORDERED: Loperamide CAP* 2 MG PO ONE (15:16)
[2016-12-22] MEDS ORDERED: Loperamide CAP* 2 MG PO PRN (15:16)
[2016-12-22] MEDS: Atorvastatin* 20 MG TAB PO SCH (21:07)
[2016-12-22] MEDS: QUEtiapine TAB* 100 MG PO SCH (22:17)
--- NOTE | 2016-12-22 22:19 | CONS ---
CC: Dr. Gee* CONSULTATION REPORT: DATE OF CONSULTATION: 12/22/16 REQUESTING PHYSICIAN: Dr. Barbosa on the behavioral health unit. INDICATION: Diarrhea. NARRATIVE: Mr. White is a pleasant 66-year-old gentleman, who complains of having "diarrhea" for the past 3 months. He states his normal bowel habits are having a bowel movement every third day, it is very loose and explosive at that time. He denies bowel movements more than every third day, no blood in stool, no abdominal pain, no rectal pain, no nausea, no vomiting, no fevers, no chills. He also states that he really cannot eat much anymore. He does not have an appetite at all. He denies any dysphagia or odynophagia. He is able to smell and taste foods still. No abdominal pain. No heartburn. He denies this ever happening before. He did have a colonoscopy according to him approximately 8 or 9 months ago in the [facility] system. He tells me it was completely normal. He did have a right hemicolectomy greater than 10 years ago for numerous polyps. He denies any unintentional weight loss. PAST MEDICAL HISTORY: Significant for diabetes, hypertension, dyslipidemia, depression. MEDICATIONS UPON ADMISSION: Include: 1. Lipitor. 2. Methylphenidate. 3. Metoprolol. 4. Ramipril. 5. Metformin. The metformin was recently stopped. ALLERGIES: PENICILLIN. FAMILY HISTORY: He denies any gastrointestinal malignancies in the family. Denies any history of inflammatory bowel disease in the family. REVIEW OF SYSTEMS: Other than mentioned in the HPI, he does have some lower extremity paresthesia but rest of the review of systems was unremarkable. PHYSICAL EXAMINATION: Temperature is 97.9, blood pressure is 124/73, pulse is 62, respiratory rate of 16, O2 sat is 98%. General: Well-appearing male sitting on his bed, alert, oriented, pleasant, and fluent. HEENT: Mucous membranes are moist without lesions, ulcers, or exudate. Neck is supple. Trachea is midline. Head is normocephalic, atraumatic. Heart: Regular rate and rhythm. Lungs: Clear to auscultation. Abdomen: Positive bowel sounds. Soft, nontender, nondistended. No hepatosplenomegaly, masses, or rebound. No guarding. Skin is warm and dry without any rashes, ulcers or tattoos. Musculoskeletal: No CVA or spinal tenderness to palpation. LABORATORY DATA: Of note, on 12/15/16, his white count is 6.2, hemoglobin is 15.1, platelets of 196. His chemistry panel was normal with an elevated glucose of 224, his bilirubin was elevated at 1.3, AST is 12, ALT is 13, alk phos is 99. ASSESSMENT AND PLAN: Mr. White is a pleasant 66-year-old gentleman, who has a change his bowel habits. There is a concern about him not being able to observe his medications properly. He is only having bowel movement every third day. I doubt that if there is any malabsorption issue ongoing here. He does have loose stools when he does have a bowel movement, but again he tells me that is only every third day. My first thought would be some sort of an obstructive process where the liquid stool is making its way around the obstruction. He just had a colonoscopy within the past year in the [facility] system. I do not have documentation of this but the patient states that he did , I would ask the staff to get documentation of this. Thus, I doubt a malignancy, colorectal cancer would have developed in less than a year. He denies any abdominal pain or rectal pain. I doubt that he has a fecal impaction with squirting of the stool around it. I would like to check an abdominal x-ray, however. I do wonder if this is somehow related to one of his medications. I again doubt that there is a malabsorption process going on. I would like to check a TSH and we should probably check stool studies just to be on safe side. I will order all these and GI services will continue to follow along. [id number]/[facility] #: [id number] [facility] HOSPITALSheryl
[2016-12-23] MEDS: Methylphenidate TAB* 5 MG PO SCH ×2 (07:36→14:42)
--- NOTE | 2016-12-23 09:05 | RAD ---
HISTORY: Diarrhea, rule out obstruction COMPARISONS: None VIEWS: Frontal supine and upright views of the abdomen. FINDINGS: BOWEL: There is a nonobstructive bowel gas pattern. There is a large amount of stool within the colon. CALCULI: There are no abnormal calculi. BONES AND SOFT TISSUES: Degenerative changes are noted OTHER FINDINGS: The lung bases are clear. There is no subphrenic gas. There is postsurgical change to the descending colon. Surgical clips are noted in the right upper quadrant. IMPRESSION: NONOBSTRUCTIVE BOWEL GAS PATTERN. LARGE AMOUNT OF STOOL THROUGHOUT THE COLON.
[2016-12-23] MEDS: Ramipril CAP* 10 MG PO SCH (09:58)
[2016-12-23] MEDS: Aspirin EC Low Dose* 81 MG TAB.EC PO SCH (09:58)
[2016-12-23] MEDS: Sertraline* 100 MG TAB PO SCH (09:59)
[2016-12-23] MEDS: DAPAGLIFLOZIN 10 MG PO SCH (09:59)
[2016-12-23] MEDS: Metoprolol Succinate XL TAB* 25 MG PO SCH (09:59)
--- NOTE | 2016-12-23 13:20 | PN ---
Subjective - Subjective Service Type: 45822 Hosp care 15 min low complexity Subjective: Patient visible in the milieu, isolated. He is depressed in affect and manner. Patient reports no BM since starting Loperamide yesterday for chronic diarrhea. Patient is med compliant and reports no med s/e's. Patient informed will monitor on current regimen. He reports ongoing fleeting SI with no plan. He denies HI and AH/VH. He reports fair sleep and appetite. Objective - Appearance Appearance: Well Developed/Nourished Dysmorphic Features: No Hygiene: Normal Grooming: Well Kept - Behavior Psychomotor Activities: Abnormal-Decreased Exhibits Abnormal Movement: No - Attitude and Relatedness Attitude and Relatedness: Cooperative Eye Contact: Fair - Speech Quality: Unpressured Latencies: Normal Quantity: Terse - Mood Patient's Decription of Mood: depressed - Affect Observed Affect: Depressed Affect Consistent with: Dysphoria - Thought Process Patient's Thought Process: Coherent Thought Content: Yes Passive Wish, No Suicidal Planning, No Homicidal Ideation, No Paranoid Ideation - Sensorium Experiencing Hallucinations: No, Sensorium is Clear Type of Hallucinations: Visual: No, Auditory: No, Command: No - Level of Consciousness Level of Consciousness: Alert Orientation: Yes Intact, Yes Orientated to Time, Yes Orientated to Place, Yes Orientated to Person - Impulse Control Impulse Control: Intact - Insight and Judgement Insight and Judgement: Fair - Group Participation Particating in Group Activities: Yes - Medication Management Medication Management Adherence: Yes Assessment - Assessment Merits Inpatient Hospitalization: For Immediate Safety, For Stabilization Inpatient DSM-IV Dx: Major depressive d/o, recurrent, severe w/o psychosis. Plan - Plan Treatment Plan: Name: VANE LOPEZ II Birthdate: 1950 [id number] PLAN: ------ 1. Continue admission to [facility] for symptom mx. 2. Will D/C Wellbutrin due to ineffectiveness and hx of use prior with no benefit per outpt MH provider. 3. D/C Ambien due to ineffectiveness on insomnia. 4. Continue HTN, DM2, and HLD home meds as Rx'd by PCP. 5. Continue Ritalin 10mg po BID(7am and 2pm) for TRD. 6. Continue Zoloft at 100mg po qam for anxiety/mood. 7. Continue Seroquel 200mg po qhs for intractable insomnia. 8. Continue to HOLD Metformin per PCP recommendation as it is known to cause loose stools/ diarrhea. Monitoring stools. 9. Fingerstick BS @ [facility]. 10. Start Loperamide 4mg po x1 today 12/22/16. Continue Loperamide 2mg po BID PRN after each watery stool. 11. GI consulted today for eval and treatment of daily diarrhea since TIA on 2016. 12. Vitamins KEAD and B vitamins levels due to question of GI malabsorption with hx of diarrhea since his 07/2016 TIA and hx of Partial Colectomy - PENDING. 13. Neuro consulted, Dr. Rios to eval and recommend treatment of post CVA depression. 14. Continue compiling collateral information from [facility] in [place]. 15. Collateral obtained from PCP(Pearl saucedo) and [facility] provider. 16. Patient to participate in milieu activities and groups. Medications: Current Medications Acetaminophen (Tylenol Tab*) 650 mg PO Q4H PRN PRN Reason: PAIN or TEMP > 101 F Al Hydrox/Mg Hydrox/Simethicone (Maalox Plus*) 30 ml PO Q4H PRN PRN Reason: INDIGESTION Aspirin (Aspirin Ec Low Dose*) 81 mg PO DAILY [facility] Last Admin: 12/23/16 09:58 Dose: 81 mg Atorvastatin Calcium (Lipitor*) 20 mg PO QPM [facility] Last Admin: 12/22/16 21:07 Dose: Not Given Loperamide HCl (Imodium Cap*) 2 mg PO BID PRN PRN Reason: DIARRHEA Lorazepam (Ativan Tab(*)) 1 mg PO BEDTIME PRN PRN Reason: AGITATION/ANXIETY/INSOMNIA Methylphenidate HCl (Ritalin Tab*) 10 mg PO 0700,1400 [facility] Last Admin: 12/23/16 07:36 Dose: 10 mg Metoprolol Succinate (Toprol Xl Tab*) 25 mg PO DAILY [facility] Last Admin: 12/23/16 09:59 Dose: 25 mg Non Formulary Med* Dapagliflozin 10mg Tab 1 admin PO DAILY [facility] Last Admin: 12/23/16 09:59 Dose: Not Given Quetiapine Fumarate (Seroquel Tab*) 200 mg PO BEDTIME [facility] Last Admin: 12/22/16 22:17 Dose: 200 mg Ramipril (Altace Cap*) 10 mg PO DAILY [facility] Last Admin: 12/23/16 09:58 Dose: 10 mg Sertraline HCl (Zoloft*) 100 mg PO DAILY [facility] Last Admin: 12/23/16 09:59 Dose: 100 mg - Discharge Plan Discharge Plan: Outpatient Follow Up Additional Comments: Neurology consult.
[2016-12-23] MEDS: Atorvastatin* 20 MG TAB PO SCH (18:23)
[2016-12-23] MEDS: QUEtiapine TAB* 100 MG PO SCH (21:20)
[2016-12-24] MEDS: Metoprolol Succinate XL TAB* 25 MG PO SCH (08:27)
[2016-12-24] MEDS: Methylphenidate TAB* 5 MG PO SCH ×2 (10:02→13:52)
[2016-12-24] MEDS: Sertraline* 100 MG TAB PO SCH (10:02)
[2016-12-24] MEDS: Aspirin EC Low Dose* 81 MG TAB.EC PO SCH (10:02)
[2016-12-24] MEDS: Ramipril CAP* 10 MG PO SCH (10:03)
[2016-12-24] MEDS: DAPAGLIFLOZIN 10 MG PO SCH (10:04)
[2016-12-24] MEDS: Atorvastatin* 20 MG TAB PO SCH (18:01)
[2016-12-24] MEDS: QUEtiapine TAB* 100 MG PO SCH (21:15)
[2016-12-25] MEDS: Metoprolol Succinate XL TAB* 25 MG PO SCH (08:37)
[2016-12-25] MEDS: Sertraline* 100 MG TAB PO SCH (09:31)
[2016-12-25] MEDS: Aspirin EC Low Dose* 81 MG TAB.EC PO SCH (09:31)
[2016-12-25] MEDS: Ramipril CAP* 10 MG PO SCH (09:32)
[2016-12-25] MEDS: Methylphenidate TAB* 5 MG PO SCH ×2 (09:33→14:05)
[2016-12-25] MEDS: DAPAGLIFLOZIN 10 MG PO SCH (09:34)
[2016-12-25] MEDS: Atorvastatin* 20 MG TAB PO SCH (17:27)
[2016-12-25] MEDS: QUEtiapine TAB* 100 MG PO SCH (20:13)
[2016-12-26] MEDS: Metoprolol Succinate XL TAB* 25 MG PO SCH (08:29)
[2016-12-26] MEDS: Sertraline* 100 MG TAB PO SCH (09:52)
[2016-12-26] MEDS: Aspirin EC Low Dose* 81 MG TAB.EC PO SCH (09:52)
[2016-12-26] MEDS: Methylphenidate TAB* 5 MG PO SCH ×2 (09:53→13:18)
[2016-12-26] MEDS: Ramipril CAP* 10 MG PO SCH (09:53)
[2016-12-26] MEDS: DAPAGLIFLOZIN 10 MG PO SCH (09:54)
--- NOTE | 2016-12-26 10:14 | PN ---
Subjective - Subjective Service Type: 88604 Hosp care 15 min low complexity Subjective: Patient reports no improvement to mood or depressive symptoms over the weekend. He reports increased sleep, but does not feel rested. He reports ongoing awareness to increase po fluid and food intake. He ate 50% of dinner tonight. Patient reports 3 days now with no BM. He is amenable to MagCitrate x1. Will continue to monitor on current regimen. Objective - Appearance Appearance: Well Developed/Nourished, Thin Framed Dysmorphic Features: No Hygiene: Normal Grooming: Disheveled - Behavior Psychomotor Activities: Abnormal-Decreased Exhibits Abnormal Movement: No - Attitude and Relatedness Attitude and Relatedness: Cooperative Eye Contact: Poor - Speech Quality: Unpressured Latencies: Normal Quantity: Terse - Mood Patient's Decription of Mood: "depressed" - Affect Observed Affect: Depressed Affect Consistent with: Dysphoria - Thought Process Patient's Thought Process: Impoverished Thought Content: Yes Passive Wish, No Suicidal Planning, No Homicidal Ideation, No Paranoid Ideation - Sensorium Experiencing Hallucinations: No, Sensorium is Clear Type of Hallucinations: Visual: No, Auditory: No, Command: No - Level of Consciousness Level of Consciousness: Alert Orientation: Yes Intact, Yes Orientated to Time, Yes Orientated to Place, Yes Orientated to Person - Impulse Control Impulse Control: Poor - Insight and Judgement Insight and Judgement: Poor - Group Participation Particating in Group Activities: No - Medication Management Medication Management Adherence: Yes Assessment - Assessment Merits Inpatient Hospitalization: For Immediate Safety, For Stabilization Inpatient DSM-IV Dx: Major depressive d/o, recurrent, severe w/o psychosis. Plan - Plan Treatment Plan: Name: VANE LOPEZ II Birthdate: 1950 [id number] PLAN: ------ 1. [place] [facility] [place] mx. 2. Will D/C Wellbutrin due to ineffectiveness and hx of use prior with no benefit per outpt MH provider. 3. D/C Ambien due to ineffectiveness on insomnia. 4. Continue HTN, DM2, and HLD home meds as Rx'd by PCP. 5. Increase Ritalin from 10mg po BID to 15mg po BID(7am and 2pm) for TRD. 6. Increase Zoloft [id number] to 200mg po qam for anxiety/mood. 7. Increase Seroquel from 200mg to 300mg po qhs for intractable insomnia. 8. Continue to HOLD Metformin per PCP recommendation as it is known to cause loose stools/ diarrhea. Monitoring stools. 9. Fingerstick BS @ [facility]. 10. Start Loperamide 4mg po x1 today 12/22/16. Continue Loperamide 2mg po BID PRN after each watery stool. 11. Patient now constipated, no BM x 3days. Patient amenable to MagCitrate x1 now. 12. GI consulted today for eval and treatment of daily diarrhea since TIA on 2016. 13. Vitamins KEAD and B vitamins levels due to question of GI malabsorption with hx of diarrhea since his 07/2016 TIA and hx of Partial Colectomy - PENDING. 14. Neuro consulted, Dr. Rios to eval and recommend treatment of post CVA depression. 15. Continue compiling collateral information from [facility] in [place]. 16. Collateral obtained from PCP(Pearl saucedo) and [facility] provider. 17. Patient to participate in milieu activities and groups. Continued Medication Management: Different Medication Medications: Current Medications Acetaminophen (Tylenol Tab*) 650 mg PO Q4H PRN PRN Reason: PAIN or TEMP > 101 F Al Hydrox/Mg Hydrox/Simethicone (Maalox Plus*) 30 ml PO Q4H PRN PRN Reason: INDIGESTION Aspirin (Aspirin Ec Low Dose*) 81 mg PO DAILY [facility] Last Admin: 12/26/16 09:52 Dose: 81 mg Atorvastatin Calcium (Lipitor*) 20 mg PO QPM [facility] Last Admin: 12/25/16 17:27 Dose: 20 mg Loperamide HCl (Imodium Cap*) 2 mg PO BID PRN PRN Reason: DIARRHEA Lorazepam (Ativan Tab(*)) 1 mg PO BEDTIME PRN PRN Reason: AGITATION/ANXIETY/INSOMNIA Methylphenidate HCl (Ritalin Tab*) 10 mg PO 0700,1400 [facility] Last Admin: 12/26/16 09:53 Dose: 10 mg Metoprolol Succinate (Toprol Xl Tab*) 25 mg PO DAILY [facility] Last Admin: 12/26/16 08:29 Dose: Not Given Non Formulary Med* Dapagliflozin 10mg Tab 1 admin PO DAILY [facility] Last Admin: 12/26/16 09:54 Dose: Not Given Quetiapine Fumarate (Seroquel Tab*) 200 mg PO BEDTIME [facility] Last Admin: 12/25/16 20:13 Dose: 200 mg Ramipril (Altace Cap*) 10 mg PO DAILY [facility] Last Admin: 12/26/16 09:53 Dose: 10 mg Sertraline HCl (Zoloft*) 100 mg PO DAILY [facility] Last Admin: 12/26/16 09:52 Dose: 100 mg - Discharge Plan Discharge Plan: Outpatient Follow Up Additional Comments: Neurology consult.
[2016-12-26] MEDS: Atorvastatin* 20 MG TAB PO SCH (18:24)
[2016-12-26] MEDS: Magnesium CITRATE* 300 ML BTL PO ONE ×2 (18:25→22:35)
[2016-12-26] MEDS: QUEtiapine TAB* 100 MG PO SCH (21:24)
[2016-12-27] MEDS: Methylphenidate TAB* 5 MG PO SCH ×2 (07:24→14:15)
[2016-12-27] MEDS: Aspirin EC Low Dose* 81 MG TAB.EC PO SCH (09:04)
[2016-12-27] MEDS: Sertraline* 100 MG TAB PO SCH (09:04)
[2016-12-27] MEDS: Metoprolol Succinate XL TAB* 25 MG PO SCH (09:05)
[2016-12-27] MEDS: Ramipril CAP* 10 MG PO SCH (09:05)
[2016-12-27] MEDS: DAPAGLIFLOZIN 10 MG PO SCH (09:06)
--- NOTE | 2016-12-27 11:03 | PN ---
Subjective - Subjective Service Type: 89370 Hosp care 15 min low complexity Subjective: Patient reports no improvement to mood but reports increased energy. He reports attending two groups today. He reports ongoing poor sleep. Staff documents he slept 6hrs. Patient reports another episode of light headedness today on ambulation. Patient again encouraged to increase po fluid and food intake. He reports ongoing poor appetite. Patient reports benefit with MagCitrate x1 given last night. He reports no diarrhea today. Patient reports ongoing fleeting SI. He denies HI and AH/VH. Will add Melatonin 6mg po qhs and continue to monitor on current regimen. Objective - Appearance Appearance: Thin Framed Dysmorphic Features: No Hygiene: Normal Grooming: Fairly Well Kept - Behavior Psychomotor Activities: Abnormal-Decreased Exhibits Abnormal Movement: No - Attitude and Relatedness Attitude and Relatedness: Cooperative Eye Contact: Fair - Speech Quality: Unpressured Latencies: Normal Quantity: Appropriate - Mood Patient's Decription of Mood: "depressed" - Affect Observed Affect: Depressed Affect Consistent with: Dysphoria - Thought Process Patient's Thought Process: Coherent Thought Content: Yes Passive Wish, No Suicidal Planning, No Homicidal Ideation, No Paranoid Ideation - Sensorium Experiencing Hallucinations: No, Sensorium is Clear Type of Hallucinations: Visual: No, Auditory: No, Command: No - Level of Consciousness Level of Consciousness: Alert Orientation: Yes Intact, Yes Orientated to Time, Yes Orientated to Place, Yes Orientated to Person - Impulse Control Impulse Control: Intact - Insight and Judgement Insight and Judgement: Fair - Group Participation Particating in Group Activities: Yes - Medication Management Medication Management Adherence: Yes Assessment - Assessment Merits Inpatient Hospitalization: For Immediate Safety, For Stabilization Inpatient DSM-IV Dx: Major depressive d/o, recurrent, severe w/o psychosis. Plan - Plan Treatment Plan: Name: VANE LOPEZ II Birthdate: 1950 [id number] PLAN: ------ 1. Continue admission to [facility] for symptom mx. 2. Will D/C Wellbutrin due to ineffectiveness and hx of use prior with no benefit per outpt MH provider. 3. D/C Ambien due to ineffectiveness on insomnia. 4. Continue HTN, DM2, and HLD home meds as Rx'd by PCP. 5. Increase Ritalin from 10mg po BID to 15mg po BID(7am and 2pm) for TRD. 6. Increase Zoloft [id number] to 200mg po qam for anxiety/mood. 7. Increase Seroquel from 200mg to 300mg po qhs for intractable insomnia. 8. Patient gives informed consent to start Melatonin 6mg po qhs for ongoing insomnia on Seroquel 300mg po qhs. 9. Continue to HOLD Metformin per PCP recommendation as it is known to cause loose stools/ diarrhea. Monitoring stools. 10. Fingerstick BS @ [facility]. 11. Start Loperamide 4mg po x1 today 12/22/16. Continue Loperamide 2mg po BID PRN after each watery stool. 12. Patient now constipated, no BM x 3days. MagCitrate x1 now, given 12/26/16 was beneficial. 13. GI consulted today for eval and treatment of daily diarrhea since TIA on 2016. 14. Vitamins KEAD and B vitamins levels due to question of GI malabsorption with hx of diarrhea since his 07/2016 TIA and hx of Partial Colectomy - PENDING. 15. Neuro consulted, Dr. Rios to eval and recommend treatment of post CVA depression. 16. Inpt SW has reached out to medicaid navigators to request they help pt apply for secondary medicaid so that Pt. may qualify for SPOE and ACT services. 17. Continue compiling collateral information from [facility] in [place]. 18. Collateral obtained from PCP(Pearl saucedo) and [facility] provider. 19. Patient to participate in milieu activities and groups. Continued Medication Management: Different Medication Medications: Current Medications Acetaminophen (Tylenol Tab*) 650 mg PO Q4H PRN PRN Reason: PAIN or TEMP > 101 F Al Hydrox/Mg Hydrox/Simethicone (Maalox Plus*) 30 ml PO Q4H PRN PRN Reason: INDIGESTION Aspirin (Aspirin Ec Low Dose*) 81 mg PO DAILY [facility] Last Admin: 12/27/16 09:04 Dose: 81 mg Atorvastatin Calcium (Lipitor*) 20 mg PO QPM [facility] Last Admin: 12/26/16 18:24 Dose: 20 mg Loperamide HCl (Imodium Cap*) 2 mg PO BID PRN PRN Reason: DIARRHEA Lorazepam (Ativan Tab(*)) 1 mg PO BEDTIME PRN PRN Reason: AGITATION/ANXIETY/INSOMNIA Methylphenidate HCl (Ritalin Tab*) 15 mg PO 0700,1400 [facility] Last Admin: 12/27/16 07:24 Dose: 15 mg Metoprolol Succinate (Toprol Xl Tab*) 25 mg PO DAILY [facility] Last Admin: 12/27/16 09:05 Dose: Not Given Non Formulary Med* Dapagliflozin 10mg Tab 1 admin PO DAILY [facility] Last Admin: 12/27/16 09:06 Dose: Not Given Quetiapine Fumarate (Seroquel Tab*) 300 mg PO BEDTIME [facility] Last Admin: 12/26/16 21:24 Dose: 300 mg Ramipril (Altace Cap*) 10 mg PO DAILY [facility] Last Admin: 12/27/16 09:05 Dose: 10 mg Sertraline HCl (Zoloft*) 200 mg PO DAILY [facility] Last Admin: 12/27/16 09:04 Dose: 200 mg - Discharge Plan Discharge Plan: Outpatient Follow Up
[2016-12-27] MEDS: buPROPion SR TAB.SR* 150 MG PO SCH (14:15)
[2016-12-27] MEDS: Atorvastatin* 20 MG TAB PO SCH (18:18)
[2016-12-27] MEDS: QUEtiapine TAB* 100 MG PO SCH (20:06)
[2016-12-27] MEDS: CMCS: Melatonin (NF) 3 MG TAB PO SCH (20:07)
[2016-12-28] MEDS: Methylphenidate TAB* 5 MG PO SCH ×2 (08:39→14:17)
[2016-12-28] MEDS: Sertraline* 100 MG TAB PO SCH (08:39)
[2016-12-28] MEDS: buPROPion SR TAB.SR* 150 MG PO SCH ×2 (08:39→14:17)
[2016-12-28] MEDS: Ramipril CAP* 10 MG PO SCH (08:39)
[2016-12-28] MEDS: Aspirin EC Low Dose* 81 MG TAB.EC PO SCH (08:40)
[2016-12-28] MEDS: Metoprolol Succinate XL TAB* 25 MG PO SCH (08:42)
[2016-12-28] MEDS: DAPAGLIFLOZIN 10 MG PO SCH (08:42)
--- NOTE | 2016-12-28 11:02 | PN ---
Subjective - Subjective Service Type: 04704 Hosp care 15 min low complexity Subjective: Patient reports no improvement to mood but reports increased energy and interest. Patient made sure to watch baseballs last night on TV. He also continues to attend some groups daily. Patient reports improved sleep last night on addition of Melatonin 6mg po qhs. Staff documents he slept 7hrs. Patient reported another episode of light headedness today on ambulation. Patient again encouraged to increase po fluid and food intake. He reports ongoing poor appetite. He reports no diarrhea today, he is watching to ensure no recurrence of constipation. Patient reports ongoing fleeting SI. He denies HI and AH/VH. Objective - Appearance Appearance: Thin Framed Dysmorphic Features: No Hygiene: Normal Grooming: Fairly Well Kept - Behavior Psychomotor Activities: Abnormal-Decreased Exhibits Abnormal Movement: No - Attitude and Relatedness Attitude and Relatedness: Cooperative Eye Contact: Fair - Speech Quality: Unpressured Latencies: Normal Quantity: Terse - Mood Patient's Decription of Mood: "depressed" - Affect Observed Affect: Depressed Affect Consistent with: Dysphoria - Thought Process Patient's Thought Process: Coherent Thought Content: Yes Passive Wish, No Suicidal Planning, No Homicidal Ideation, No Paranoid Ideation - Sensorium Experiencing Hallucinations: No, Sensorium is Clear Type of Hallucinations: Visual: No, Auditory: No, Command: No - Level of Consciousness Level of Consciousness: Alert Orientation: Yes Intact, Yes Orientated to Time, Yes Orientated to Place, Yes Orientated to Person - Impulse Control Impulse Control: Intact - Insight and Judgement Insight and Judgement: Fair - Group Participation Particating in Group Activities: Yes - Medication Management Medication Management Adherence: Yes Assessment - Assessment Merits Inpatient Hospitalization: For Immediate Safety, For Stabilization Inpatient DSM-IV Dx: Major depressive d/o, recurrent, severe w/o psychosis. Plan - Plan Treatment Plan: Name: VANE LOPEZ II Birthdate: 1950 [id number] PLAN: ------ 1. Continue [place] [facility] [place] [facility] for [place] mx. 2. Will D/C Wellbutrin due to ineffectiveness and hx of use prior with no benefit per outpt MH provider. 3. D/C Ambien due to ineffectiveness on insomnia. 4. Continue HTN, DM2, and HLD home meds as Rx'd by PCP. 5. Continue Ritalin at 15mg po BID(7am and 2pm) for TRD. 6. Continue Zoloft [id number] to 200mg po qam for anxiety/mood. 7. Continue re-started Wellbutrin 150mg po BID for depressive symptoms. 8. Continue Seroquel at 300mg po qhs for intractable insomnia. 9. Continue Melatonin 6mg po qhs for ongoing insomnia on Seroquel 300mg po qhs. 10. Continue to HOLD Metformin per PCP recommendation as it is known to cause loose stools/ diarrhea. Monitoring stools. 11. Fingerstick BS @ [facility]. Blood sugars have been fair. 12. Loperamide 4mg po x1 today 12/22/16. Continue Loperamide 2mg po BID PRN after each watery stool. 13. Patient now constipated, no BM x 3days. MagCitrate x1 now, given 12/26/16 was beneficial. 14. GI consulted today for eval and treatment of daily diarrhea since TIA on 2016. 15. Vitamins KEAD and B vitamins levels due to question of GI malabsorption with hx of diarrhea since his 07/2016 TIA and hx of Partial Colectomy - PENDING. 16. Neuro consulted, Dr. Rios to eval and recommend treatment of post CVA depression. 17. Inpt SW has reached out to medicaid navigators to request they help pt apply for secondary medicaid so that Pt. may qualify for SPOE and ACT services. 18. Will initiate process for transfer to [facility]. 19. Continue compiling collateral information from [facility] in [place]. 20. Collateral obtained from PCP(Pearl saucedo) and [facility] provider. 21. Patient to participate in milieu activities and groups. Continued Medication Management: Different Medication Medications: Current Medications Acetaminophen (Tylenol Tab*) 650 mg PO Q4H PRN PRN Reason: PAIN or TEMP > 101 F Al Hydrox/Mg Hydrox/Simethicone (Maalox Plus*) 30 ml PO Q4H PRN PRN Reason: INDIGESTION Aspirin (Aspirin Ec Low Dose*) 81 mg PO DAILY [facility] Last Admin: 12/28/16 08:40 Dose: 81 mg Atorvastatin Calcium (Lipitor*) 20 mg PO QPM [facility] Last Admin: 12/27/16 18:18 Dose: 20 mg Bupropion HCl (Wellbutrin Sr Tab*) 150 mg PO 0700,1400 [facility] Last Admin: 12/28/16 08:39 Dose: 150 mg Loperamide HCl (Imodium Cap*) 2 mg PO BID PRN PRN Reason: DIARRHEA Lorazepam (Ativan Tab(*)) 1 mg PO BEDTIME PRN PRN Reason: AGITATION/ANXIETY/INSOMNIA Melatonin (Melatonin (Nf)) 6 mg PO BEDTIME [facility] Last Admin: 12/27/16 20:07 Dose: 6 mg Methylphenidate HCl (Ritalin Tab*) 15 mg PO 0700,1400 [facility] Last Admin: 12/28/16 08:39 Dose: 15 mg Metoprolol Succinate (Toprol Xl Tab*) 25 mg PO DAILY [facility] Last Admin: 12/28/16 08:42 Dose: Not Given Non Formulary Med* Dapagliflozin 10mg Tab 1 admin PO DAILY [facility] Last Admin: 12/28/16 08:42 Dose: Not Given Quetiapine Fumarate (Seroquel Tab*) 300 mg PO BEDTIME [facility] Last Admin: 12/27/16 20:06 Dose: 300 mg Ramipril (Altace Cap*) 10 mg PO DAILY [facility] Last Admin: 12/28/16 08:39 Dose: 10 mg Sertraline HCl (Zoloft*) 200 mg PO DAILY [facility] Last Admin: 12/28/16 08:39 Dose: 200 mg - Discharge Plan Discharge Plan: Outpatient Follow Up Additional Comments: Neurology consult.
--- NOTE | 2016-12-28 11:03 | PN ---
MHU: Group Therapy Note - Service Type Service Type: [id number] Group Psychotherapy - Cognitive Behavioral Group Therapy ( CBT):Patient was attentive and participatory in CBT programming this morning, and remained in good behavioral control. Patient expressed positive insights regarding relevant treatment interventions and goals.
[2016-12-28] MEDS: Atorvastatin* 20 MG TAB PO SCH (18:10)
[2016-12-28] MEDS: QUEtiapine TAB* 100 MG PO SCH (20:19)
[2016-12-28] MEDS: CMCS: Melatonin (NF) 3 MG TAB PO SCH (21:04)
[2016-12-29] MEDS: DAPAGLIFLOZIN 10 MG PO SCH (09:49)
[2016-12-29] MEDS: Methylphenidate TAB* 5 MG PO SCH ×2 (09:55→15:58)
[2016-12-29] MEDS: buPROPion SR TAB.SR* 150 MG PO SCH ×2 (09:55→15:58)
[2016-12-29] MEDS: Metoprolol Succinate XL TAB* 25 MG PO SCH (09:55)
[2016-12-29] MEDS: Ramipril CAP* 10 MG PO SCH (09:56)
[2016-12-29] MEDS: Sertraline* 100 MG TAB PO SCH (09:56)
[2016-12-29] MEDS: Aspirin EC Low Dose* 81 MG TAB.EC PO SCH (09:56)
--- NOTE | 2016-12-29 10:11 | PN ---
Subjective - Subjective Service Type: 74805 Hosp care 15 min low complexity Subjective: Patient continues to report no improvement to mood. He reports he has some improved energy and some improved interest in things that bring him pleasure. Patient reports he plans to view the baseball game [employer]. He also continues to attend some groups daily. Patient reports improved sleep with combination of Seroquel and Melatonin. Patient denies episode today of lt. headedness. Patient again encouraged to increase po fluid and food intake. He reports ongoing poor appetite. He reports no diarrhea today, he reports no BM in 2 days. Patient informed sugars have been mildly to moderately elevated of late. He was informed Metformin would be re-started. Patient reports ongoing fleeting SI. He denies HI and AH/VH. Patient encouraged to continue to attend groups. Objective - Appearance Appearance: Thin Framed Dysmorphic Features: No Hygiene: Normal Grooming: Disheveled - Behavior Psychomotor Activities: Abnormal-Decreased Exhibits Abnormal Movement: No - Attitude and Relatedness Attitude and Relatedness: Cooperative Eye Contact: Poor - Speech Quality: Unpressured Latencies: Normal Quantity: Terse - Mood Patient's Decription of Mood: "depressed" - Affect Observed Affect: Depressed Affect Consistent with: Dysphoria - Thought Process Patient's Thought Process: Coherent Thought Content: No Passive Wish, No Suicidal Planning, No Homicidal Ideation, No Paranoid Ideation - Sensorium Experiencing Hallucinations: No, Sensorium is Clear Type of Hallucinations: Visual: No, Auditory: No, Command: No - Level of Consciousness Level of Consciousness: Alert Orientation: Yes Intact, Yes Orientated to Time, Yes Orientated to Place, Yes Orientated to Person - Impulse Control Impulse Control: Intact - Insight and Judgement Insight and Judgement: Fair - Group Participation Particating in Group Activities: Yes - Medication Management Medication Management Adherence: Yes Assessment - Assessment Merits Inpatient Hospitalization: For Immediate Safety, For Stabilization Inpatient DSM-IV Dx: Major depressive d/o, recurrent, severe w/o psychosis. Plan - Plan Treatment Plan: Name: VANE LOPEZ II Birthdate: 1950 [id number] PLAN: ------ 1. Continue admission to [facility] for symptom mx. 2. Will D/C Wellbutrin due to ineffectiveness and hx of use prior with no benefit per outpt provider. 3. D/C Ambien due to ineffectiveness on insomnia. 4. Continue HTN, DM2, and HLD home meds as Rx'd by PCP. 5. Continue Ritalin at 15mg po BID(7am and 2pm) for TRD. 6. Continue Zoloft [id number] to 200mg po qam for anxiety/mood. 7. Continue re-started Wellbutrin 150mg po BID for depressive symptoms. 8. Continue Seroquel at 300mg po qhs for intractable insomnia. 9. Continue Melatonin 6mg po qhs for ongoing insomnia on Seroquel 300mg po qhs. 10. Continue to HOLD Metformin per PCP recommendation as it is known to cause loose stools/ diarrhea. Monitoring stools. Plan to re-start Metformin at 500mg BID as patient no longer reports diarrhea. 11. Fingerstick BS @ [facility]. Blood sugars have been mildly to moderately elevated. 12. Loperamide 4mg po x1 today 12/22/16. Continue Loperamide 2mg po BID PRN after each watery stool. 13. Patient now constipated, no BM x 3days. MagCitrate x1 now, given 12/26/16 was beneficial. 14. GI consulted today for eval and treatment of daily diarrhea since TIA on 2016. 15. Vitamins KEAD and B vitamins levels due to question of GI malabsorption with hx of diarrhea since his 07/2016 TIA and hx of Partial Colectomy - PENDING. 16. Neuro consulted, Dr. Rios to eval and recommend treatment of post CVA depression. 17. Inpt SW has reached out to medicaid navigators to request they help pt apply for secondary medicaid so that Pt. may qualify for SPOE and ACT services. 18. Will initiate process for transfer to [facility]. Patient reports he will refuse this. 19. Continue compiling collateral information from [facility] in [place]. 20. Collateral obtained from PCP(Pearl saucedo) and [facility] provider. 21. Patient to participate in milieu activities and groups. Medications: Current Medications Acetaminophen (Tylenol Tab*) 650 mg PO Q4H PRN PRN Reason: PAIN or TEMP > 101 F Al Hydrox/Mg Hydrox/Simethicone (Maalox Plus*) 30 ml PO Q4H PRN PRN Reason: INDIGESTION Aspirin (Aspirin Ec Low Dose*) 81 mg PO DAILY [facility] Last Admin: 12/29/16 09:56 Dose: 81 mg Atorvastatin Calcium (Lipitor*) 20 mg PO QPM [facility] Last Admin: 12/28/16 18:10 Dose: 20 mg Bupropion HCl (Wellbutrin Sr Tab*) 150 mg PO 0700,1400 [facility] Last Admin: 12/29/16 09:55 Dose: 150 mg Loperamide HCl (Imodium Cap*) 2 mg PO BID PRN PRN Reason: DIARRHEA Lorazepam (Ativan Tab(*)) 1 mg PO BEDTIME PRN PRN Reason: AGITATION/ANXIETY/INSOMNIA Melatonin (Melatonin (Nf)) 6 mg PO BEDTIME [facility] Last Admin: 12/28/16 21:04 Dose: Not Given Methylphenidate HCl (Ritalin Tab*) 15 mg PO 0700,1400 [facility] Last Admin: 12/29/16 09:55 Dose: 15 mg Metoprolol Succinate (Toprol Xl Tab*) 25 mg PO DAILY [facility] Last Admin: 12/29/16 09:55 Dose: 25 mg Non Formulary Med* Dapagliflozin 10mg Tab 1 admin PO DAILY [facility] Last Admin: 12/29/16 09:49 Dose: Not Given Quetiapine Fumarate (Seroquel Tab*) 300 mg PO BEDTIME [facility] Last Admin: 12/28/16 20:19 Dose: 300 mg Ramipril (Altace Cap*) 10 mg PO DAILY [facility] Last Admin: 12/29/16 09:56 Dose: 10 mg Sertraline HCl (Zoloft*) 200 mg PO DAILY [facility] Last Admin: 12/29/16 09:56 Dose: 200 mg - Discharge Plan Discharge Plan: Consider Longer Term Tx Additional Comments: Neurology consult.
[2016-12-29] MEDS: metFORMIN* 500 MG TAB PO SCH (17:17)
[2016-12-29] MEDS: Atorvastatin* 20 MG TAB PO SCH (17:18)
[2016-12-29] MEDS: QUEtiapine TAB* 100 MG PO SCH (21:09)
[2016-12-29] MEDS: CMCS: Melatonin (NF) 3 MG TAB PO SCH (21:09)
[2016-12-30] MEDS: Methylphenidate TAB* 5 MG PO SCH ×2 (09:34→13:58)
[2016-12-30] MEDS: Sertraline* 100 MG TAB PO SCH (09:35)
[2016-12-30] MEDS: metFORMIN* 500 MG TAB PO SCH ×2 (09:35→18:30)
[2016-12-30] MEDS: Ramipril CAP* 10 MG PO SCH (09:35)
[2016-12-30] MEDS: Aspirin EC Low Dose* 81 MG TAB.EC PO SCH (09:35)
[2016-12-30] MEDS: buPROPion SR TAB.SR* 150 MG PO SCH ×2 (09:35→13:58)
[2016-12-30] MEDS: Metoprolol Succinate XL TAB* 25 MG PO SCH (09:39)
--- NOTE | 2016-12-30 12:14 | PN ---
Subjective - Subjective Service Type: [id number] Hosp care 15 min low complexity Subjective: Patient noted to be more visible in the milieu and more social with peers. Patient continues to display a depressed affect but demonstrates less PMR. Patient reports he continues to make an effort to drink appropriate amount of fluids and take in appropriate nutrition. Patient reports ongoing improved interest in viewing the baseball games, one is on tonight. He also continues to attend groups daily. Patient reports improved sleep. Patient denies episode today of lt. headedness. He reports no diarrhea or constipation issues. Patient is med compliant and denies s/e's even with re-start of Metformin yesterday. Patient reports ongoing fleeting SI. He denies HI and AH/VH. Objective - Appearance Appearance: Well Developed/Nourished, Thin Framed Dysmorphic Features: No Hygiene: Normal Grooming: Fairly Well Kept - Behavior Psychomotor Activities: Normal Exhibits Abnormal Movement: No - Attitude and Relatedness Attitude and Relatedness: Cooperative Eye Contact: Fair - Speech Quality: Unpressured Latencies: Normal Quantity: Terse - Mood Patient's Decription of Mood: "depressed" - Affect Observed Affect: Depressed Affect Consistent with: Dysphoria - Thought Process Patient's Thought Process: Coherent Thought Content: Yes Passive Wish, No Suicidal Planning, No Homicidal Ideation, No Paranoid Ideation - Sensorium Experiencing Hallucinations: No, Sensorium is Clear Type of Hallucinations: Visual: No, Auditory: No, Command: No - Level of Consciousness Level of Consciousness: Alert Orientation: Yes Intact, Yes Orientated to Time, Yes Orientated to Place, Yes Orientated to Person - Impulse Control Impulse Control: Intact - Insight and Judgement Insight and Judgement: Poor - Group Participation Particating in Group Activities: Yes - Medication Management Medication Management Adherence: Yes Assessment - Assessment Merits Inpatient Hospitalization: For Immediate Safety, For Stabilization Inpatient DSM-IV Dx: Major depressive d/o, recurrent, severe w/o psychosis. Plan - Plan Treatment Plan: Name: VANE LOPEZ II Birthdate: 1950 [id number] PLAN: ------ 1. [place] [facility] [place] mx. 2. D/C Ambien due to ineffectiveness on insomnia. 3. Continue HTN, DM2, and HLD home meds as Rx'd by PCP. 4. Continue Ritalin at 15mg po BID(7am and 2pm) for TRD. 5. Continue Zoloft 200mg po qam for anxiety/mood. 6. Will increase Wellbutrin SR 150mg po BID to Wellbutrin XL 450mg po qam for ongoinng depressive symptoms. 7. Continue Seroquel at 300mg po qhs for intractable insomnia. 8. Continue Melatonin 6mg po qhs for ongoing insomnia on Seroquel 300mg po qhs. 9. Metformin re-started at 500mg BID as patient no longer reports diarrhea. 10. Fingerstick BS @ [facility]. Blood sugars have been mildly to moderately elevated. 11. Loperamide 4mg po x1 today 12/22/16. Continue Loperamide 2mg po BID PRN after each watery stool. 12. MagCitrate x1 now, given 12/26/16 was beneficial on constipation after use of Loperamide. 13. GI consulted today for eval and treatment of daily diarrhea since TIA on 2016. 14. Vitamins KEAD and B vitamins levels due to question of GI malabsorption with hx of diarrhea since his 07/2016 TIA and hx of Partial Colectomy - PENDING. 15. Neuro consulted, Dr. Rios to eval and recommend treatment of post CVA depression. 16. Inpt SW has reached out to medicaid navigators to request they help pt apply for secondary medicaid so that Pt. may qualify for SPOE and ACT services. 17. Will initiate process for transfer to [facility]. Patient reports he will refuse this. 18. Continue compiling collateral information from [facility] in [place]. 19. Collateral obtained from PCP(Pearl saucedo) and [facility] provider. 20. Patient to participate in milieu activities and groups. Continued Medication Management: Different Medication Medications: Current Medications Acetaminophen (Tylenol Tab*) 650 mg PO Q4H PRN PRN Reason: PAIN or TEMP > 101 F Al Hydrox/Mg Hydrox/Simethicone (Maalox Plus*) 30 ml PO Q4H PRN PRN Reason: INDIGESTION Aspirin (Aspirin Ec Low Dose*) 81 mg PO DAILY [facility] Last Admin: 12/30/16 09:35 Dose: 81 mg Atorvastatin Calcium (Lipitor*) 20 mg PO QPM [facility] Last Admin: 12/29/16 17:18 Dose: 20 mg Bupropion HCl (Wellbutrin Sr Tab*) 150 mg PO 0700,1400 [facility] Last Admin: 12/30/16 09:35 Dose: 150 mg Loperamide HCl (Imodium Cap*) 2 mg PO BID PRN PRN Reason: DIARRHEA Lorazepam (Ativan Tab(*)) 1 mg PO BEDTIME PRN PRN Reason: AGITATION/ANXIETY/INSOMNIA Melatonin (Melatonin (Nf)) 6 mg PO BEDTIME [facility] Last Admin: 12/29/16 21:09 Dose: 6 mg Metformin HCl (Glucophage*) 500 mg PO 0800,1700 [facility] Last Admin: 12/30/16 09:35 Dose: 500 mg Methylphenidate HCl (Ritalin Tab*) 15 mg PO 0700,1400 [facility] Last Admin: 12/30/16 09:34 Dose: 15 mg Metoprolol Succinate (Toprol Xl Tab*) 25 mg PO DAILY [facility] Last Admin: 12/30/16 09:39 Dose: Not Given Non Formulary Med* Dapagliflozin 10mg Tab 1 admin PO DAILY [facility] Last Admin: 12/29/16 09:49 Dose: Not Given Quetiapine Fumarate (Seroquel Tab*) 300 mg PO BEDTIME [facility] Last Admin: 12/29/16 21:09 Dose: 300 mg Ramipril (Altace Cap*) 10 mg PO DAILY [facility] Last Admin: 12/30/16 09:35 Dose: 10 mg Sertraline HCl (Zoloft*) 200 mg PO DAILY [facility] Last Admin: 12/30/16 09:35 Dose: 200 mg - Discharge Plan Discharge Plan: Outpatient Follow Up Outpatient Program: [facility] - Referred to ACT team for outpt. mx. Additional Comments: Neurology consult.
[2016-12-30] MEDS: DAPAGLIFLOZIN 10 MG PO SCH (14:14)
--- NOTE | 2016-12-30 14:33 | PN ---
MHU: Group Therapy Note - Service Type Service Type: [id number] Group Psychotherapy - Cognitive Behavioral Group Therapy ( CBT):Patient was attentive and participatory in CBT programming this morning, and remained in good behavioral control. Patient expressed positive insights regarding relevant treatment interventions and goals.
[2016-12-30] MEDS: Atorvastatin* 20 MG TAB PO SCH (18:30)
[2016-12-30] MEDS: QUEtiapine TAB* 100 MG PO SCH (21:15)
[2016-12-30] MEDS: CMCS: Melatonin (NF) 3 MG TAB PO SCH (21:15)
[2016-12-31] MEDS: Methylphenidate TAB* 5 MG PO SCH ×2 (07:15→13:42)
[2016-12-31] MEDS: Metoprolol Succinate XL TAB* 25 MG PO SCH (08:51)
[2016-12-31] MEDS: Sertraline* 100 MG TAB PO SCH (09:15)
[2016-12-31] MEDS: metFORMIN* 500 MG TAB PO SCH ×2 (09:15→16:57)
[2016-12-31] MEDS: BuPROPion XL* 150 MG TAB.XL PO SCH (09:16)
[2016-12-31] MEDS: Ramipril CAP* 10 MG PO SCH (09:16)
[2016-12-31] MEDS: Aspirin EC Low Dose* 81 MG TAB.EC PO SCH (09:16)
[2016-12-31] MEDS: DAPAGLIFLOZIN 10 MG PO SCH (09:17)
[2016-12-31] MEDS: Atorvastatin* 20 MG TAB PO SCH (17:00)
[2017-01-01] MEDS: Methylphenidate TAB* 5 MG PO SCH ×2 (07:37→14:35)
[2017-01-01] MEDS: DAPAGLIFLOZIN 10 MG PO SCH (09:09)
[2017-01-01] MEDS: Metoprolol Succinate XL TAB* 25 MG PO SCH (09:09)
[2017-01-01] MEDS: Sertraline* 100 MG TAB PO SCH (09:43)
[2017-01-01] MEDS: Aspirin EC Low Dose* 81 MG TAB.EC PO SCH (09:43)
[2017-01-01] MEDS: metFORMIN* 500 MG TAB PO SCH ×2 (09:43→16:58)
[2017-01-01] MEDS: Ramipril CAP* 10 MG PO SCH (09:44)
[2017-01-01] MEDS: BuPROPion XL* 150 MG TAB.XL PO SCH (09:45)
[2017-01-01] MEDS: Atorvastatin* 20 MG TAB PO SCH (17:00)
[2017-01-01] MEDS: CMCS: Melatonin (NF) 3 MG TAB PO SCH ×2 (18:00→20:10)
[2017-01-01] MEDS: QUEtiapine TAB* 100 MG PO SCH ×2 (18:01→20:10)
[2017-01-02] MEDS: Ramipril CAP* 10 MG PO SCH (09:09)
[2017-01-02] MEDS: Methylphenidate TAB* 5 MG PO SCH ×2 (09:09→13:53)
[2017-01-02] MEDS: metFORMIN* 500 MG TAB PO SCH ×2 (09:09→17:25)
[2017-01-02] MEDS: BuPROPion XL* 150 MG TAB.XL PO SCH (09:10)
[2017-01-02] MEDS: Aspirin EC Low Dose* 81 MG TAB.EC PO SCH (09:10)
[2017-01-02] MEDS: Metoprolol Succinate XL TAB* 25 MG PO SCH (09:10)
[2017-01-02] MEDS: DAPAGLIFLOZIN 10 MG PO SCH (09:10)
[2017-01-02] MEDS: Sertraline* 100 MG TAB PO SCH (09:11)
[2017-01-02] MEDS: Atorvastatin* 20 MG TAB PO SCH (17:25)
--- NOTE | 2017-01-02 18:05 | PN ---
Subjective - Subjective Service Type: [id number] Hosp care 15 min low complexity Subjective: Vane doesn't believe he is improving at all where as there appears to be some improvement per all reports. Subjectively he doesn't feel it rather losing hope. Visibly tremulous and somewhat unsteady on shay either due to side effects of meds or general weakness. Another possibility could be a neurological condition such as PD. A neuro consult may help. Objective - Appearance Appearance: Healthy Appearing Dysmorphic Features: No Hygiene: Mal-odorous Grooming: Disheveled - Behavior Psychomotor Activities: Abnormal-Decreased Exhibits Abnormal Movement: No - Attitude and Relatedness Attitude and Relatedness: Cooperative Eye Contact: Good - Speech Quality: Unpressured Latencies: Long Quantity: Terse - Mood Patient's Decription of Mood: "Terrible" - Affect Observed Affect: Depressed Affect Consistent with: Dysphoria - Thought Process Patient's Thought Process: Coherent, Goal Directed Thought Content: No Passive Wish, No Suicidal Planning, No Homicidal Ideation, No Paranoid Ideation - Sensorium Experiencing Hallucinations: No, Sensorium is Clear Type of Hallucinations: Visual: No, Auditory: No, Command: No - Level of Consciousness Level of Consciousness: Alert Orientation: Yes Intact, Yes Orientated to Time, Yes Orientated to Place, Yes Orientated to Person - Impulse Control Impulse Control: Intact - Insight and Judgement Insight and Judgement: Fair - Group Participation Particating in Group Activities: Yes - Medication Management Medication Management Adherence: Yes Assessment - Assessment Merits Inpatient Hospitalization: For Stabilization, Diagnosis Determination Inpatient DSM-IV Dx: Major depressive d/o, recurrent, severe w/o psychosis. Clinical Impression: Continues to be severely depressed. Improvement has been slow and minimal. Appears to be physically compromised with weight loss, weakness, tremulousness and unsteady gait. Plan - Plan Treatment Plan: Name: VANE LOPEZ II Birthdate: 1950 [id number] Continued Medication Management: Continue Outpt Medication Medications: Current Medications Acetaminophen (Tylenol Tab*) 650 mg PO Q4H PRN PRN Reason: PAIN or TEMP > 101 F Al Hydrox/Mg Hydrox/Simethicone (Maalox Plus*) 30 ml PO Q4H PRN PRN Reason: INDIGESTION Aspirin (Aspirin Ec Low Dose*) 81 mg PO DAILY [facility] Last Admin: 01/02/17 09:10 Dose: 81 mg Atorvastatin Calcium (Lipitor*) 20 mg PO QPM [facility] Last Admin: 01/02/17 17:25 Dose: 20 mg Bupropion HCl (Wellbutrin Xl *) 450 mg PO QAM [facility] PRN Reason: Protocol Last Admin: 01/02/17 09:10 Dose: 450 mg Loperamide HCl (Imodium Cap*) 2 mg PO BID PRN PRN Reason: DIARRHEA Lorazepam (Ativan Tab(*)) 1 mg PO BEDTIME PRN PRN Reason: AGITATION/ANXIETY/INSOMNIA Melatonin (Melatonin (Nf)) 6 mg PO BEDTIME [facility] Last Admin: 01/01/17 20:10 Dose: 6 mg Metformin HCl (Glucophage*) 500 mg PO 0800,1700 [facility] Last Admin: 01/02/17 17:25 Dose: 500 mg Methylphenidate HCl (Ritalin Tab*) 15 mg PO 0700,1400 [facility] Last Admin: 01/02/17 13:53 Dose: 15 mg Metoprolol Succinate (Toprol Xl Tab*) 25 mg PO DAILY [facility] Last Admin: 01/02/17 09:10 Dose: Not Given Non Formulary Med* Dapagliflozin 10mg Tab 1 admin PO DAILY [facility] Last Admin: 01/02/17 09:10 Dose: Not Given Quetiapine Fumarate (Seroquel Tab*) 300 mg PO BEDTIME [facility] Last Admin: 01/01/17 20:10 Dose: 300 mg Ramipril (Altace Cap*) 10 mg PO DAILY [facility] Last Admin: 01/02/17 09:09 Dose: 10 mg Sertraline HCl (Zoloft*) 200 mg PO DAILY [facility] Last Admin: 01/02/17 09:11 Dose: 200 mg - Discharge Plan Discharge Plan: Consider Longer Term Tx
[2017-01-02] MEDS ORDERED: Propranolol TAB* 10 MG PO SCH (19:45)
[2017-01-02] MEDS: CMCS: Melatonin (NF) 3 MG TAB PO SCH (19:55)
[2017-01-02] MEDS: QUEtiapine TAB* 100 MG PO SCH (19:56)
[2017-01-02 22:45] VITALS: BP 134/79
[2017-01-03 02:21] LABS: Hematocrit 38 % (42-52); Hemoglobin 13.3 g/dl (14.0-18.0); Mean Corpuscular HGB Conc 35 g/dl (31-36); Mean Corpuscular Hemoglobin 31 pg (27-31); Mean Corpuscular Volume 88 fL (80-94); Mean Platelet Volume 9 um3 (7.4-10.4); Red Blood Count 4.35 10^6/ul (4.0-5.4); Red Cell Distribution Width 13 % (10.5-15); White Blood Count 8.4 10^3/ul (3.5-10.8)
[2017-01-03 02:33] LABS: Albumin 3.9 g/dL (3.2-5.2); Calcium 9.5 mg/dL (8.6-10.3); EGFR African American 82.4 (>60); EGFR Non-African American 64.1 (>60); Globulin 2.9 g/dL (2-4); Potassium 4.1 mmol/L (3.5-5.0); Total Bilirubin 0.6 mg/dL (0.2-1.0); Total Protein 6.8 g/dL (6.4-8.9)
[2017-01-03 02:37] LABS: Troponin I 0.05 ng/mL (<0.04)
--- NOTE | 2017-01-03 03:21 | CONSULT ---
Consult Consult: CAT response Upon arrival, patient MEGA White, a 66M HX DM2, HTN, HLD, TIA admitted to [facility] for major depressive disorder with high risk suicidal ideations, is found markedly hyporesponsive being held up in a chair in his room's doorway by nursing. Adequate sternal rub failed to rouse, but he gradually came around over the next couple of minutes while information was being gathered. Upon awakening, he was fatigued, but oriented to person, place, situation, & time. He states that he got up to urinate, became light-headed without spinning and then woke up in the chair. He denied other prodromal symptoms, specifically chest pain, SOB, palpitations, nausea, focal W/N/T, or other issues. Of note, his beta jamie was changed today from metoprolol to propranolol. H&P and last daily note reviewed. POC glucose: 107 ECG showed a bradycardic 1st degree AV block rate in the mid-50s, no ischemia & similar morphology to comparison Initial vitals just prior to awakening were stable & adequate. Orthostatics: Lying: BP 126/71 P 53 saO2 96%; Sitting: BP 86/58 P 56 saO2 98%; Standing: not performed Laboratory Results - last 24 hr 01/02/17 01/02/17 01/03/17 07:40 16:54 01:40 WBC RBC Hgb Hct MCV MCH MCHC RDW Plt Count MPV Neut % (Auto) Lymph % (Auto) [place] % (Auto) Eos % (Auto) Baso % (Auto) Absolute Neuts (auto) Absolute Lymphs (auto) Absolute Monos (auto) Absolute Eos (auto) Absolute Basos (auto) Absolute Nucleated RBC Nucleated RBC % Sodium Potassium Chloride Carbon Dioxide Anion Gap BUN Creatinine Est GFR ( Amer) Est GFR (Non-Af Amer) BUN/Creatinine Ratio Glucose POC Glucose (mg/dL) 141 H 144 H 107 H Lactic Acid Calcium Total Bilirubin AST ALT Alkaline Phosphatase Troponin I Total Protein Albumin Globulin Albumin/Globulin Ratio 01/03/17 01/03/17 01/03/17 01:52 01:52 01:52 WBC 8.4 RBC 4.35 Hgb 13.3 L Hct 38 L MCV 88 MCH 31 MCHC 35 RDW 13 Plt Count 180 MPV 9 Neut % (Auto) 44.2 Lymph % (Auto) 47.0 [place] % (Auto) 5.7 Eos % (Auto) 2.6 Baso % (Auto) 0.5 Absolute Neuts (auto) 3.7 Absolute Lymphs (auto) 3.9 Absolute Monos (auto) 0.5 Absolute Eos (auto) 0.2 Absolute Basos (auto) 0 Absolute Nucleated RBC 0.01 Nucleated RBC % 0.1 Sodium 135 Potassium 4.1 Chloride 105 Carbon Dioxide 22 Anion Gap 8 BUN 16 Creatinine 1.14 Est GFR ( Amer) 82.4 Est GFR (Non-Af Amer) 64.1 BUN/Creatinine Ratio 14.0 Glucose 126 H POC Glucose (mg/dL) Lactic Acid 2.3 H* Calcium 9.5 Total Bilirubin 0.60 AST 12 L ALT 23 Alkaline Phosphatase 94 Troponin I 0.05 H* Total Protein 6.8 Albumin 3.9 Globulin 2.9 Albumin/Globulin Ratio 1.3 While his troponin is 0.5, it is considered non-diagnostic as it was drawn prior to him being able to give an adequate HX now known to not have cardiac symptomotology & with an profound orthostasis found as causative issue for syncope. Additionally, the only available troponin drawn in 2016 was 0.4. Lactic acid is 2.3. general: disheveled older white male, NAD lungs: CTAB, normal effort CV: BR/RR abdomen: SNTND, NABS extremities: grossly intact, non-tender integument: diaphoretic Assessment: plan orthostatic hypotension with syncope : suspect poor PO fluid intake 2nd severe depression as etiology : transfer to ED for 2L NS & recheck orthostatics : if orthostasis is resolved, return to [facility] : if orthostatsis persists after 2L IVF, will admit to floor for observation & further IVFs : CAT reviewed with on-call psych who agrees with this plan
--- NOTE | 2017-01-03 11:05 | DS ---
Subjective - Subjective Service Types: 68700 Hosp DC Day Mgmt simple under 30 min Subjective: Per staff reports, patient was "observed entering bathroom by staff with unsteady gait, staff approached Pt to assist with gait. When asked how he was feeling, Pt stated "Dizzy," and began to collapse towards staff and bathroom sink, staff caught Pt mid-collapse, no injury noted. Staff called for assistance and Pt was lowered to chair. Pt jovel in color, breathing shallow and rapid. Pt became unresponsive while sitting in the chair, was unarousable to voice and painful stimuli. CAT team called @ 0130, arrived at 0135. VS as follows, BP-133/79, R-16, P-56, FS BG-107. Pt observed to respond to painful stimuli by hospitalist, noted to be more responsive, assisted to the bed. CAT team assessment deemed Pt should be transferred to ED for further evaluation. On -call psychiatrist contacted and order for discharge to ED obtained. Pt was transferred via wheelchair to the ED @ 0245". Patient had IVFs in the ED. EKG showed sinus bradycardia, Trop were NEG. Patient admitted to the medical floor for ongoing monitoring / evaluation / treatment of dehydration and syncopal event. Objective - Appearance Appearance: Thin Framed Dysmorphic Features: No Hygiene: Normal Grooming: Fairly Well Kept - Behavior Psychomotor Activities: Abnormal-Decreased Exhibits Abnormal Movement: Yes - Attitude and Relatedness Attitude and Relatedness: Cooperative Eye Contact: Fair - Speech Quality: Unpressured Latencies: Normal Quantity: Terse - Mood Patient's Decription of Mood: "Anxious" - Affect Observed Affect: Depressed Affect Consistent with: Dysphoria - Thought Process Patient's Thought Process: Coherent Thought Content: Yes Passive Wish, No Suicidal Planning, No Homicidal Ideation, No Paranoid Ideation - Sensorium Experiencing Hallucinations: No, Sensorium is Clear Type of Hallucinations: Visual: No, Auditory: No, Command: No - Level of Consciousness Level of Consciousness: Alert Orientation: Yes Intact, Yes Orientated to Time, Yes Orientated to Place, Yes Orientated to Person - Impulse Control Impulse Control: Intact - Insight and Judgement Insight and Judgement: Fair - Group Participation Particating in Group Activities: Yes - Medication Management Medication Management Adherence: Yes Treatment Course & Assessment Clinical Course & Impression: HOSPITAL COURSE: VANE LOPEZ II Patient is a 66yo male with PPHx significant for MDD, R, S and Treatment Resistant Depression who self presents to the [facility] ED reporting ongoing significant depressive symptoms associated with worsening SI no plan and also reported worsening ability to function at home. Patient was recently admitted to the [facility] in 2016 with the same presentation and was accepted and transferred to [facility] for ECT at discharge. Patient reports completing a course of 12 ECT treatments. He reports his depression persisted. Patient reports he did not report his ongoing significant depression to [facility] staff and reports he was discharged home. Patient reports his drop in mood and energy initially started after suffering a TIA on . He reports this occurred while visiting his son in [place]. He reports being cared for at [facility] in [place]. He reports receiving an MRI of the brain, echocardiogram , and carotid dopplers all being NEG. Of note, patient reports along with the drop in mood and energy, he also developed diarrhea which has continued daily since the TIA. Patient reports his PCP has done stool cx with NEG findings recently. Interestingly, patient reports hx of Partial Colectomy 2/2 precancerous polyps approx.10yrs ago. He reports he had a colonoscopy within the year which was NEG for pathology. He reports a now 40lb weight loss since his depression started after the TIA. Patient reports no appetite and ambivalence to his state of hygiene and grooming. Patient endorses anhedonia. He denies SI/HI currently, but reports a hx of recurrent SI and he reports experiencing more frequent SI w/o plan over the last 2 weeks. Patient reports his grandchildren are his primary protective factor. Patient has high suicide risk with hx of suicide attempt with a firearm, recent medical illness, current feelings of hopelessness, while having access to a firearm. He has a 22 calibur gun in his home. Patient has distressing financial pressures. Patient denies hx of physical, emotional, or sexual abuse. Patient denies hx of alcohol abuse. Patient denied hx of illicit substance use. Patient has been compliant with MH appts at [facility], but has not been med compliant. He is amenable to med modification. Patient had not had oral or IM psychotropic meds since ECT at [facility]. Early in admission, patient started on Seroquel for insomnia, which was uptitrated from 50mg po qhs to 150mg and up to 300mg po qhs. He reported benefit to sleep, but with addition of Melatonin, patient reported and was observed to sleep 7-8hrs at night. Zoloft was initiated at 100mg po qdaily for mood and anxiety, and uptitrated to 200mg po daily. A stimulant was determined to be the next approach for treatment of patient's TRD. Ritalin was initiated at 5mg po BID(7am and 2pm) for TRD. Neurology was consulted to vic for a neurologic etiology of patients TRD and neurovegetative symptoms. Patient reported diarrhea daily since his TIA in 07/2016. Patient's PCP contacted and GI consulted for tx recommendations. Vitamins KEAD and B vitamins levels due to question of GI malabsorption with hx of diarrhea since his 07/2016 TIA and hx of Partial Colectomy. Metformin at 1000mg po BID was HELD as per PCP it is associated with diarrhea. Fingerstick BS @ AC&HS were observed. Ultimately Loperamide 4mg po x1 given 12/22/16. Patient reported no further diarrhea. Patient experienced next constipation which was alleviated by Colace daily and MagCitratex1. Metformin restarted late last week at 500mg po BID for DM2. Paitent was compliant with Ritalin increased from 10mg po BID to 15mg po BID and Zoloft at 200mg po daily and Wellbutrin SR started at 100mg po BID and up- titrated to Wellbutrin XL formulation 450mg po qam on Monday. He has had benefit to insomnia with Seroquel up-titrated to 300mg po qhs and addition of Melatonin 6mg po qhs. Per staff reports, patient was "observed entering bathroom by staff with unsteady gait, staff approached Pt to assist with gait. When asked how he was feeling, Pt stated "Dizzy," and began to collapse towards staff and bathroom sink, staff caught Pt mid-collapse, no injury noted. Staff called for assistance and Pt was lowered to chair. Pt jovel in color, breathing shallow and rapid. Pt became unresponsive while sitting in the chair, was unarousable to voice and painful stimuli. CAT team called @ 0130, arrived at 0135. VS as follows, BP-133/79, R-16, P-56, FS BG-107. Pt observed to respond to painful stimuli by hospitalist, noted to be more responsive, assisted to the bed. CAT team assessment deemed Pt should be transferred to ED for further evaluation. On -call psychiatrist contacted and order for discharge to ED obtained. Pt was transferred via wheelchair to the ED @ 0245". Patient had IVFs in the ED. EKG showed sinus bradycardia, Trop were NEG. Patient admitted to the medical floor for ongoing monitoring / evaluation / treatment of dehydration and syncopal event. PERTINENT LABS: Laboratory Tests 12/15/16 12/15/16 12/15/16 13:06 13:06 13:12 WBC RBC Hgb Hct MCV MCH MCHC RDW Plt Count MPV Neut % (Auto) Lymph % (Auto) Gilliam % (Auto) Eos % (Auto) Baso % (Auto) Absolute Neuts (auto) Absolute Lymphs (auto) Absolute Monos (auto) Absolute Eos (auto) Absolute Basos (auto) Absolute Nucleated RBC Nucleated RBC % Sodium 136 Potassium 3.6 Chloride 100 L Carbon Dioxide 28 Anion Gap 8 BUN 13 Creatinine 1.13 Est GFR ( Amer) 83.2 Est GFR (Non-Af Amer) 64.7 BUN/Creatinine Ratio 11.5 Glucose 224 H POC Glucose (mg/dL) Hemoglobin A1c Lactic Acid Calcium 9.9 Total Bilirubin 1.30 H AST 12 L ALT 13 Alkaline Phosphatase 99 Troponin I Total Protein 7.5 Albumin 4.3 Globulin 3.2 Albumin/Globulin Ratio 1.3 Triglycerides Cholesterol LDL Cholesterol HDL Cholesterol Vitamin A Whole Bld Vitamin B1 Vitamin B2 Vitamin B3 (Niacin) Pyridoxal 5-Phosphate Pyridoxic Acid Vitamin B12 Vit D 1,25-Dihydroxy Vitamin E Vitamin K TSH 3.44 Urine Color Yellow Urine Appearance Cloudy Urine pH 7 Ur Specific [place] 1.010 Urine Protein Negative Urine Ketones Negative Urine Blood Negative Urine Nitrate Negative Urine Bilirubin Negative Urine Urobilinogen Negative Ur Leukocyte Esterase Negative Urine Glucose 2+(150 mg/dl) H Salicylates < 2.50 Urine Opiates Screen None detected Acetaminophen < 15 Ur Barbiturates Screen None detected Ur Phencyclidine Scrn None detected Ur Amphetamines Screen None detected U Benzodiazepines Scrn None detected Urine Cocaine Screen None detected U Cannabinoids Screen None detected Serum Alcohol < 10 12/15/16 12/15/16 12/16/16 13:12 21:43 07:39 WBC 6.2 RBC 5.04 Hgb 15.1 Hct 45 MCV 89 MCH 30 MCHC 34 RDW 14 Plt Count 196 MPV 10 Neut % (Auto) 54.4 Lymph % (Auto) 33.5 Gilliam % (Auto) 6.9 Eos % (Auto) 4.7 Baso % (Auto) 0.5 Absolute Neuts (auto) 3.4 Absolute Lymphs (auto) 2.1 Absolute Monos (auto) 0.4 Absolute Eos (auto) 0.3 Absolute Basos (auto) 0 Absolute Nucleated RBC 0.01 Nucleated RBC % 0.2 Sodium Potassium Chloride Carbon Dioxide Anion Gap BUN Creatinine Est GFR ( Amer) Est GFR (Non-Af Amer) BUN/Creatinine Ratio Glucose POC Glucose (mg/dL) 176 H 164 H Hemoglobin A1c Lactic Acid Calcium Total Bilirubin AST ALT Alkaline Phosphatase Troponin I Total Protein Albumin Globulin Albumin/Globulin Ratio Triglycerides Cholesterol LDL Cholesterol HDL Cholesterol Vitamin A Whole Bld Vitamin B1 Vitamin B2 Vitamin B3 (Niacin) Pyridoxal 5-Phosphate Pyridoxic Acid Vitamin B12 Vit D 1,25-Dihydroxy Vitamin E Vitamin K TSH Urine Color Urine Appearance Urine pH Ur Specific [place] Urine Protein Urine Ketones Urine Blood Urine Nitrate Urine Bilirubin Urine Urobilinogen Ur Leukocyte Esterase Urine Glucose Salicylates Urine Opiates Screen Acetaminophen Ur Barbiturates Screen Ur Phencyclidine Scrn Ur Amphetamines Screen U Benzodiazepines Scrn Urine Cocaine Screen U Cannabinoids Screen Serum Alcohol 12/16/16 12/16/16 12/17/16 11:40 16:14 07:50 WBC RBC Hgb Hct MCV MCH MCHC RDW Plt Count MPV Neut % (Auto) Lymph % (Auto) Gilliam % (Auto) Eos % (Auto) Baso % (Auto) Absolute Neuts (auto) Absolute Lymphs (auto) Absolute Monos (auto) Absolute Eos (auto) Absolute Basos (auto) Absolute Nucleated RBC Nucleated RBC % Sodium Potassium Chloride Carbon Dioxide Anion Gap BUN Creatinine Est GFR ( Amer) Est GFR (Non-Af Amer) BUN/Creatinine Ratio Glucose POC Glucose (mg/dL) 300 H 196 H Hemoglobin A1c Lactic Acid Calcium Total Bilirubin AST ALT Alkaline Phosphatase Troponin I Total Protein Albumin Globulin Albumin/Globulin Ratio Triglycerides Cholesterol LDL Cholesterol HDL Cholesterol Vitamin A Whole Bld Vitamin B1 Vitamin B2 Vitamin B3 (Niacin) Pyridoxal 5-Phosphate Pyridoxic Acid Vitamin B12 531 Vit D 1,25-Dihydroxy Vitamin E Vitamin K TSH Urine Color Urine Appearance Urine pH Ur Specific [place] Urine Protein Urine Ketones Urine Blood Urine Nitrate Urine Bilirubin Urine Urobilinogen Ur Leukocyte Esterase Urine Glucose Salicylates Urine Opiates Screen Acetaminophen Ur Barbiturates Screen Ur Phencyclidine Scrn Ur Amphetamines Screen U Benzodiazepines Scrn Urine Cocaine Screen U Cannabinoids Screen Serum Alcohol 12/17/16 12/17/16 12/17/16 12:05 17:02 21:04 WBC RBC Hgb Hct MCV MCH MCHC RDW Plt Count MPV Neut % (Auto) Lymph % (Auto) Gilliam % (Auto) Eos % (Auto) Baso % (Auto) Absolute Neuts (auto) Absolute Lymphs (auto) Absolute Monos (auto) Absolute Eos (auto) Absolute Basos (auto) Absolute Nucleated RBC Nucleated RBC % Sodium Potassium Chloride Carbon Dioxide Anion Gap BUN Creatinine Est GFR ( Amer) Est GFR (Non-Af Amer) BUN/Creatinine Ratio Glucose POC Glucose (mg/dL) 181 H 219 H 118 H Hemoglobin A1c Lactic Acid Calcium Total Bilirubin AST ALT Alkaline Phosphatase Troponin I Total Protein Albumin Globulin Albumin/Globulin Ratio Triglycerides Cholesterol LDL Cholesterol HDL Cholesterol Vitamin A Whole Bld Vitamin B1 Vitamin B2 Vitamin B3 (Niacin) Pyridoxal 5-Phosphate Pyridoxic Acid Vitamin B12 Vit D 1,25-Dihydroxy Vitamin E Vitamin K TSH Urine Color Urine Appearance Urine pH Ur Specific [place] Urine Protein Urine Ketones Urine Blood Urine Nitrate Urine Bilirubin Urine Urobilinogen Ur Leukocyte Esterase Urine Glucose Salicylates Urine Opiates Screen Acetaminophen Ur Barbiturates Screen Ur Phencyclidine Scrn Ur Amphetamines Screen U Benzodiazepines Scrn Urine Cocaine Screen U Cannabinoids Screen Serum Alcohol 12/18/16 12/18/16 12/18/16 06:15 07:24 12:11 WBC RBC Hgb Hct MCV MCH MCHC RDW Plt Count MPV Neut % (Auto) Lymph % (Auto) Gilliam % (Auto) Eos % (Auto) Baso % (Auto) Absolute Neuts (auto) Absolute Lymphs (auto) Absolute Monos (auto) Absolute Eos (auto) Absolute Basos (auto) Absolute Nucleated RBC Nucleated RBC % Sodium Potassium Chloride Carbon Dioxide Anion Gap BUN Creatinine Est GFR ( Amer) Est GFR (Non-Af Amer) BUN/Creatinine Ratio Glucose POC Glucose (mg/dL) 175 H 231 H Hemoglobin A1c Lactic Acid Calcium Total Bilirubin AST ALT Alkaline Phosphatase Troponin I Total Protein Albumin Globulin Albumin/Globulin Ratio Triglycerides Cholesterol LDL Cholesterol HDL Cholesterol Vitamin A 59.6 Whole Bld Vitamin B1 106 Vitamin B2 5 Vitamin B3 (Niacin) 2.44 Pyridoxal 5-Phosphate 6 Pyridoxic Acid 3 Vitamin B12 Vit D 1,25-Dihydroxy 17 L Vitamin E 7.5 Vitamin K 0.57 TSH Urine Color Urine Appearance Urine pH Ur Specific [place] Urine Protein Urine Ketones Urine Blood Urine Nitrate Urine Bilirubin Urine Urobilinogen Ur Leukocyte Esterase Urine Glucose Salicylates Urine Opiates Screen Acetaminophen Ur Barbiturates Screen Ur Phencyclidine Scrn Ur Amphetamines Screen U Benzodiazepines Scrn Urine Cocaine Screen U Cannabinoids Screen Serum Alcohol 12/18/16 12/19/16 12/19/16 16:34 07:37 12:05 WBC RBC Hgb Hct MCV MCH MCHC RDW Plt Count MPV Neut % (Auto) Lymph % (Auto) Gilliam % (Auto) Eos % (Auto) Baso % (Auto) Absolute Neuts (auto) Absolute Lymphs (auto) Absolute Monos (auto) Absolute Eos (auto) Absolute Basos (auto) Absolute Nucleated RBC Nucleated RBC % Sodium Potassium Chloride Carbon Dioxide Anion Gap BUN Creatinine Est GFR ( Amer) Est GFR (Non-Af Amer) BUN/Creatinine Ratio Glucose POC Glucose (mg/dL) 123 H 159 H 179 H Hemoglobin A1c Lactic Acid Calcium Total Bilirubin AST ALT Alkaline Phosphatase Troponin I Total Protein Albumin Globulin Albumin/Globulin Ratio Triglycerides Cholesterol LDL Cholesterol HDL Cholesterol Vitamin A Whole Bld Vitamin B1 Vitamin B2 Vitamin B3 (Niacin) Pyridoxal 5-Phosphate Pyridoxic Acid Vitamin B12 Vit D 1,25-Dihydroxy Vitamin E Vitamin K TSH Urine Color Urine Appearance Urine pH Ur Specific [place] Urine Protein Urine Ketones Urine Blood Urine Nitrate Urine Bilirubin Urine Urobilinogen Ur Leukocyte Esterase Urine Glucose Salicylates Urine Opiates Screen Acetaminophen Ur Barbiturates Screen Ur Phencyclidine Scrn Ur Amphetamines Screen U Benzodiazepines Scrn Urine Cocaine Screen U Cannabinoids Screen Serum Alcohol 12/19/16 12/20/16 12/20/16 17:08 07:41 12:16 WBC RBC Hgb Hct MCV MCH MCHC RDW Plt Count MPV Neut % (Auto) Lymph % (Auto) Gilliam % (Auto) Eos % (Auto) Baso % (Auto) Absolute Neuts (auto) Absolute Lymphs (auto) Absolute Monos (auto) Absolute Eos (auto) Absolute Basos (auto) Absolute Nucleated RBC Nucleated RBC % Sodium Potassium Chloride Carbon Dioxide Anion Gap BUN Creatinine Est GFR ( Amer) Est GFR (Non-Af Amer) BUN/Creatinine Ratio Glucose POC Glucose (mg/dL) 153 H 145 H 193 H Hemoglobin A1c Lactic Acid Calcium Total Bilirubin AST ALT Alkaline Phosphatase Troponin I Total Protein Albumin Globulin Albumin/Globulin Ratio Triglycerides Cholesterol LDL Cholesterol HDL Cholesterol Vitamin A Whole Bld Vitamin B1 Vitamin B2 Vitamin B3 (Niacin) Pyridoxal 5-Phosphate Pyridoxic Acid Vitamin B12 Vit D 1,25-Dihydroxy Vitamin E Vitamin K TSH Urine Color Urine Appearance Urine pH Ur Specific [place] Urine Protein Urine Ketones Urine Blood Urine Nitrate Urine Bilirubin Urine Urobilinogen Ur Leukocyte Esterase Urine Glucose Salicylates Urine Opiates Screen Acetaminophen Ur Barbiturates Screen Ur Phencyclidine Scrn Ur Amphetamines Screen U Benzodiazepines Scrn Urine Cocaine Screen U Cannabinoids Screen Serum Alcohol 12/20/16 12/21/16 12/21/16 16:55 07:35 08:01 WBC RBC Hgb Hct MCV MCH MCHC RDW Plt Count MPV Neut % (Auto) Lymph % (Auto) Gilliam % (Auto) Eos % (Auto) Baso % (Auto) Absolute Neuts (auto) Absolute Lymphs (auto) Absolute Monos (auto) Absolute Eos (auto) Absolute Basos (auto) Absolute Nucleated RBC Nucleated RBC % Sodium Potassium Chloride Carbon Dioxide Anion Gap BUN Creatinine Est GFR ( Amer) Est GFR (Non-Af Amer) BUN/Creatinine Ratio Glucose POC Glucose (mg/dL) 122 H 160 H Hemoglobin A1c Lactic Acid Calcium Total Bilirubin AST ALT Alkaline Phosphatase Troponin I Total Protein Albumin Globulin Albumin/Globulin Ratio Triglycerides 94 Cholesterol 94 LDL Cholesterol 41 HDL Cholesterol 34.2 Vitamin A Whole Bld Vitamin B1 Vitamin B2 Vitamin B3 (Niacin) Pyridoxal 5-Phosphate Pyridoxic Acid Vitamin B12 Vit D 1,25-Dihydroxy Vitamin E Vitamin K TSH Urine Color Urine Appearance Urine pH Ur Specific [place] Urine Protein Urine Ketones Urine Blood Urine Nitrate Urine Bilirubin Urine Urobilinogen Ur Leukocyte Esterase Urine Glucose Salicylates Urine Opiates Screen Acetaminophen Ur Barbiturates Screen Ur Phencyclidine Scrn Ur Amphetamines Screen U Benzodiazepines Scrn Urine Cocaine Screen U Cannabinoids Screen Serum Alcohol 12/21/16 12/21/16 12/22/16 08:01 16:54 07:26 WBC RBC Hgb Hct MCV MCH MCHC RDW Plt Count MPV Neut % (Auto) Lymph % (Auto) Gilliam % (Auto) Eos % (Auto) Baso % (Auto) Absolute Neuts (auto) Absolute Lymphs (auto) Absolute Monos (auto) Absolute Eos (auto) Absolute Basos (auto) Absolute Nucleated RBC Nucleated RBC % Sodium Potassium Chloride Carbon Dioxide Anion Gap BUN Creatinine Est GFR ( Amer) Est GFR (Non-Af Amer) BUN/Creatinine Ratio Glucose POC Glucose (mg/dL) 192 H 192 H Hemoglobin A1c 7.0 H Lactic Acid Calcium Total Bilirubin AST ALT Alkaline Phosphatase Troponin I Total Protein Albumin Globulin Albumin/Globulin Ratio Triglycerides Cholesterol LDL Cholesterol HDL Cholesterol Vitamin A Whole Bld Vitamin B1 Vitamin B2 Vitamin B3 (Niacin) Pyridoxal 5-Phosphate Pyridoxic Acid Vitamin B12 Vit D 1,25-Dihydroxy Vitamin E Vitamin K TSH Urine Color Urine Appearance Urine pH Ur Specific [place] Urine Protein Urine Ketones Urine Blood Urine Nitrate Urine Bilirubin Urine Urobilinogen Ur Leukocyte Esterase Urine Glucose Salicylates Urine Opiates Screen Acetaminophen Ur Barbiturates Screen Ur Phencyclidine Scrn Ur Amphetamines Screen U Benzodiazepines Scrn Urine Cocaine Screen U Cannabinoids Screen Serum Alcohol 12/22/16 12/22/16 12/23/16 11:57 16:39 07:34 WBC RBC Hgb Hct MCV MCH MCHC RDW Plt Count MPV Neut % (Auto) Lymph % (Auto) Gilliam % (Auto) Eos % (Auto) Baso % (Auto) Absolute Neuts (auto) Absolute Lymphs (auto) Absolute Monos (auto) Absolute Eos (auto) Absolute Basos (auto) Absolute Nucleated RBC Nucleated RBC % Sodium Potassium Chloride Carbon Dioxide Anion Gap BUN Creatinine Est GFR ( Amer) Est GFR (Non-Af Amer) BUN/Creatinine Ratio Glucose POC Glucose (mg/dL) 218 H 167 H Hemoglobin A1c Lactic Acid Calcium Total Bilirubin AST ALT Alkaline Phosphatase Troponin I Total Protein Albumin Globulin Albumin/Globulin Ratio Triglycerides Cholesterol LDL Cholesterol HDL Cholesterol Vitamin A Whole Bld Vitamin B1 Vitamin B2 Vitamin B3 (Niacin) Pyridoxal 5-Phosphate Pyridoxic Acid Vitamin B12 Vit D 1,25-Dihydroxy Vitamin E Vitamin K TSH 4.19 Urine Color Urine Appearance Urine pH Ur Specific [place] Urine Protein Urine Ketones Urine Blood Urine Nitrate Urine Bilirubin Urine Urobilinogen Ur Leukocyte Esterase Urine Glucose Salicylates Urine Opiates Screen Acetaminophen Ur Barbiturates Screen Ur Phencyclidine Scrn Ur Amphetamines Screen U Benzodiazepines Scrn Urine Cocaine Screen U Cannabinoids Screen Serum Alcohol 12/23/16 12/23/16 12/24/16 07:42 11:46 08:24 WBC RBC Hgb Hct MCV MCH MCHC RDW Plt Count MPV Neut % (Auto) Lymph % (Auto) Gilliam % (Auto) Eos % (Auto) Baso % (Auto) Absolute Neuts (auto) Absolute Lymphs (auto) Absolute Monos (auto) Absolute Eos (auto) Absolute Basos (auto) Absolute Nucleated RBC Nucleated RBC % Sodium Potassium Chloride Carbon Dioxide Anion Gap BUN Creatinine Est GFR ( Amer) Est GFR (Non-Af Amer) BUN/Creatinine Ratio Glucose POC Glucose (mg/dL) 178 H 186 H 181 H Hemoglobin A1c Lactic Acid Calcium Total Bilirubin AST ALT Alkaline Phosphatase Troponin I Total Protein Albumin Globulin Albumin/Globulin Ratio Triglycerides Cholesterol LDL Cholesterol HDL Cholesterol Vitamin A Whole Bld Vitamin B1 Vitamin B2 Vitamin B3 (Niacin) Pyridoxal 5-Phosphate Pyridoxic Acid Vitamin B12 Vit D 1,25-Dihydroxy Vitamin E Vitamin K TSH Urine Color Urine Appearance Urine pH Ur Specific [place] Urine Protein Urine Ketones Urine Blood Urine Nitrate Urine Bilirubin Urine Urobilinogen Ur Leukocyte Esterase Urine Glucose Salicylates Urine Opiates Screen Acetaminophen Ur Barbiturates Screen Ur Phencyclidine Scrn Ur Amphetamines Screen U Benzodiazepines Scrn Urine Cocaine Screen U Cannabinoids Screen Serum Alcohol 12/24/16 12/24/16 12/25/16 11:48 16:56 07:48 WBC RBC Hgb Hct MCV MCH MCHC RDW Plt Count MPV Neut % (Auto) Lymph % (Auto) Gilliam % (Auto) Eos % (Auto) Baso % (Auto) Absolute Neuts (auto) Absolute Lymphs (auto) Absolute Monos (auto) Absolute Eos (auto) Absolute Basos (auto) Absolute Nucleated RBC Nucleated RBC % Sodium Potassium Chloride Carbon Dioxide Anion Gap BUN Creatinine Est GFR ( Amer) Est GFR (Non-Af Amer) BUN/Creatinine Ratio Glucose POC Glucose (mg/dL) 255 H 167 H 159 H Hemoglobin A1c Lactic Acid Calcium Total Bilirubin AST ALT Alkaline Phosphatase Troponin I Total Protein Albumin Globulin Albumin/Globulin Ratio Triglycerides Cholesterol LDL Cholesterol HDL Cholesterol Vitamin A Whole Bld Vitamin B1 Vitamin B2 Vitamin B3 (Niacin) Pyridoxal 5-Phosphate Pyridoxic Acid Vitamin B12 Vit D 1,25-Dihydroxy Vitamin E Vitamin K TSH Urine Color Urine Appearance Urine pH Ur Specific [place] Urine Protein Urine Ketones Urine Blood Urine Nitrate Urine Bilirubin Urine Urobilinogen Ur Leukocyte Esterase Urine Glucose Salicylates Urine Opiates Screen Acetaminophen Ur Barbiturates Screen Ur Phencyclidine Scrn Ur Amphetamines Screen U Benzodiazepines Scrn Urine Cocaine Screen U Cannabinoids Screen Serum Alcohol 12/25/16 12/26/16 12/26/16 16:47 07:27 11:22 WBC RBC Hgb Hct MCV MCH MCHC RDW Plt Count MPV Neut % (Auto) Lymph % (Auto) Gilliam % (Auto) Eos % (Auto) Baso % (Auto) Absolute Neuts (auto) Absolute Lymphs (auto) Absolute Monos (auto) Absolute Eos (auto) Absolute Basos (auto) Absolute Nucleated RBC Nucleated RBC % Sodium Potassium Chloride Carbon Dioxide Anion Gap BUN Creatinine Est GFR ( Amer) Est GFR (Non-Af Amer) BUN/Creatinine Ratio Glucose POC Glucose (mg/dL) 193 H 169 H 193 H Hemoglobin A1c Lactic Acid Calcium Total Bilirubin AST ALT Alkaline Phosphatase Troponin I Total Protein Albumin Globulin Albumin/Globulin Ratio Triglycerides Cholesterol LDL Cholesterol HDL Cholesterol Vitamin A Whole Bld Vitamin B1 Vitamin B2 Vitamin B3 (Niacin) Pyridoxal 5-Phosphate Pyridoxic Acid Vitamin B12 Vit D 1,25-Dihydroxy Vitamin E Vitamin K TSH Urine Color Urine Appearance Urine pH Ur Specific [place] Urine Protein Urine Ketones Urine Blood Urine Nitrate Urine Bilirubin Urine Urobilinogen Ur Leukocyte Esterase Urine Glucose Salicylates Urine Opiates Screen Acetaminophen Ur Barbiturates Screen Ur Phencyclidine Scrn Ur Amphetamines Screen U Benzodiazepines Scrn Urine Cocaine Screen U Cannabinoids Screen Serum Alcohol 12/26/16 12/27/16 12/27/16 16:29 07:37 16:39 WBC RBC Hgb Hct MCV MCH MCHC RDW Plt Count MPV Neut % (Auto) Lymph % (Auto) Gilliam % (Auto) Eos % (Auto) Baso % (Auto) Absolute Neuts (auto) Absolute Lymphs (auto) Absolute Monos (auto) Absolute Eos (auto) Absolute Basos (auto) Absolute Nucleated RBC Nucleated RBC % Sodium Potassium Chloride Carbon Dioxide Anion Gap BUN Creatinine Est GFR ( Amer) Est GFR (Non-Af Amer) BUN/Creatinine Ratio Glucose POC Glucose (mg/dL) 226 H 169 H 287 H Hemoglobin A1c Lactic Acid Calcium Total Bilirubin AST ALT Alkaline Phosphatase Troponin I Total Protein Albumin Globulin Albumin/Globulin Ratio Triglycerides Cholesterol LDL Cholesterol HDL Cholesterol Vitamin A Whole Bld Vitamin B1 Vitamin B2 Vitamin B3 (Niacin) Pyridoxal 5-Phosphate Pyridoxic Acid Vitamin B12 Vit D 1,25-Dihydroxy Vitamin E Vitamin K TSH Urine Color Urine Appearance Urine pH Ur Specific [place] Urine Protein Urine Ketones Urine Blood Urine Nitrate Urine Bilirubin Urine Urobilinogen Ur Leukocyte Esterase Urine Glucose Salicylates Urine Opiates Screen Acetaminophen Ur Barbiturates Screen Ur Phencyclidine Scrn Ur Amphetamines Screen U Benzodiazepines Scrn Urine Cocaine Screen U Cannabinoids Screen Serum Alcohol 12/28/16 12/28/16 12/29/16 07:24 16:44 07:28 WBC RBC Hgb Hct MCV MCH MCHC RDW Plt Count MPV Neut % (Auto) Lymph % (Auto) Gilliam % (Auto) Eos % (Auto) Baso % (Auto) Absolute Neuts (auto) Absolute Lymphs (auto) Absolute Monos (auto) Absolute Eos (auto) Absolute Basos (auto) Absolute Nucleated RBC Nucleated RBC % Sodium Potassium Chloride Carbon Dioxide Anion Gap BUN Creatinine Est GFR ( Amer) Est GFR (Non-Af Amer) BUN/Creatinine Ratio Glucose POC Glucose (mg/dL) 172 H 200 H 167 H Hemoglobin A1c Lactic Acid Calcium Total Bilirubin AST ALT Alkaline Phosphatase Troponin I Total Protein Albumin Globulin Albumin/Globulin Ratio Triglycerides Cholesterol LDL Cholesterol HDL Cholesterol Vitamin A Whole Bld Vitamin B1 Vitamin B2 Vitamin B3 (Niacin) Pyridoxal 5-Phosphate Pyridoxic Acid Vitamin B12 Vit D 1,25-Dihydroxy Vitamin E Vitamin K TSH Urine Color Urine Appearance Urine pH Ur Specific [place] Urine Protein Urine Ketones Urine Blood Urine Nitrate Urine Bilirubin Urine Urobilinogen Ur Leukocyte Esterase Urine Glucose Salicylates Urine Opiates Screen Acetaminophen Ur Barbiturates Screen Ur Phencyclidine Scrn Ur Amphetamines Screen U Benzodiazepines Scrn Urine Cocaine Screen U Cannabinoids Screen Serum Alcohol 12/29/16 12/30/16 12/31/16 16:47 07:34 07:24 WBC RBC Hgb Hct MCV MCH MCHC RDW Plt Count MPV Neut % (Auto) Lymph % (Auto) Gilliam % (Auto) Eos % (Auto) Baso % (Auto) Absolute Neuts (auto) Absolute Lymphs (auto) Absolute Monos (auto) Absolute Eos (auto) Absolute Basos (auto) Absolute Nucleated RBC Nucleated RBC % Sodium Potassium Chloride Carbon Dioxide Anion Gap BUN Creatinine Est GFR ( Amer) Est GFR (Non-Af Amer) BUN/Creatinine Ratio Glucose POC Glucose (mg/dL) 184 H 173 H 147 H Hemoglobin A1c Lactic Acid Calcium Total Bilirubin AST ALT Alkaline Phosphatase Troponin I Total Protein Albumin Globulin Albumin/Globulin Ratio Triglycerides Cholesterol LDL Cholesterol HDL Cholesterol Vitamin A Whole Bld Vitamin B1 Vitamin B2 Vitamin B3 (Niacin) Pyridoxal 5-Phosphate Pyridoxic Acid Vitamin B12 Vit D 1,25-Dihydroxy Vitamin E Vitamin K TSH Urine Color Urine Appearance Urine pH Ur Specific [place] Urine Protein Urine Ketones Urine Blood Urine Nitrate Urine Bilirubin Urine Urobilinogen Ur Leukocyte Esterase Urine Glucose Salicylates Urine Opiates Screen Acetaminophen Ur Barbiturates Screen Ur Phencyclidine Scrn Ur Amphetamines Screen U Benzodiazepines Scrn Urine Cocaine Screen U Cannabinoids Screen Serum Alcohol 12/31/16 12/31/16 01/01/17 11:30 16:12 07:41 WBC RBC Hgb Hct MCV MCH MCHC RDW Plt Count MPV Neut % (Auto) Lymph % (Auto) Gilliam % (Auto) Eos % (Auto) Baso % (Auto) Absolute Neuts (auto) Absolute Lymphs (auto) Absolute Monos (auto) Absolute Eos (auto) Absolute Basos (auto) Absolute Nucleated RBC Nucleated RBC % Sodium Potassium Chloride Carbon Dioxide Anion Gap BUN Creatinine Est GFR ( Amer) Est GFR (Non-Af Amer) BUN/Creatinine Ratio Glucose POC Glucose (mg/dL) 185 H 202 H 142 H Hemoglobin A1c Lactic Acid Calcium Total Bilirubin AST ALT Alkaline Phosphatase Troponin I Total Protein Albumin Globulin Albumin/Globulin Ratio Triglycerides Cholesterol LDL Cholesterol HDL Cholesterol Vitamin A Whole Bld Vitamin B1 Vitamin B2 Vitamin B3 (Niacin) Pyridoxal 5-Phosphate Pyridoxic Acid Vitamin B12 Vit D 1,25-Dihydroxy Vitamin E Vitamin K TSH Urine Color Urine Appearance Urine pH Ur Specific [place] Urine Protein Urine Ketones Urine Blood Urine Nitrate Urine Bilirubin Urine Urobilinogen Ur Leukocyte Esterase Urine Glucose Salicylates Urine Opiates Screen Acetaminophen Ur Barbiturates Screen Ur Phencyclidine Scrn Ur Amphetamines Screen U Benzodiazepines Scrn Urine Cocaine Screen U Cannabinoids Screen Serum Alcohol 01/02/17 01/02/17 01/03/17 07:40 16:54 01:40 WBC RBC Hgb Hct MCV MCH MCHC RDW Plt Count MPV Neut % (Auto) Lymph % (Auto) Gilliam % (Auto) Eos % (Auto) Baso % (Auto) Absolute Neuts (auto) Absolute Lymphs (auto) Absolute Monos (auto) Absolute Eos (auto) Absolute Basos (auto) Absolute Nucleated RBC Nucleated RBC % Sodium Potassium Chloride Carbon Dioxide Anion Gap BUN Creatinine Est GFR ( Amer) Est GFR (Non-Af Amer) BUN/Creatinine Ratio Glucose POC Glucose (mg/dL) 141 H 144 H 107 H Hemoglobin A1c Lactic Acid Calcium Total Bilirubin AST ALT Alkaline Phosphatase Troponin I Total Protein Albumin Globulin Albumin/Globulin Ratio Triglycerides Cholesterol LDL Cholesterol HDL Cholesterol Vitamin A Whole Bld Vitamin B1 Vitamin B2 Vitamin B3 (Niacin) Pyridoxal 5-Phosphate Pyridoxic Acid Vitamin B12 Vit D 1,25-Dihydroxy Vitamin E Vitamin K TSH Urine Color Urine Appearance Urine pH Ur Specific [place] Urine Protein Urine Ketones Urine Blood Urine Nitrate Urine Bilirubin Urine Urobilinogen Ur Leukocyte Esterase Urine Glucose Salicylates Urine Opiates Screen Acetaminophen Ur Barbiturates Screen Ur Phencyclidine Scrn Ur Amphetamines Screen U Benzodiazepines Scrn Urine Cocaine Screen U Cannabinoids Screen Serum Alcohol 01/03/17 01/03/17 01/03/17 01:52 01:52 01:52 WBC 8.4 RBC 4.35 Hgb 13.3 L Hct 38 L MCV 88 MCH 31 MCHC 35 RDW 13 Plt Count 180 MPV 9 Neut % (Auto) 44.2 Lymph % (Auto) 47.0 Gilliam % (Auto) 5.7 Eos % (Auto) 2.6 Baso % (Auto) 0.5 Absolute Neuts (auto) 3.7 Absolute Lymphs (auto) 3.9 Absolute Monos (auto) 0.5 Absolute Eos (auto) 0.2 Absolute Basos (auto) 0 Absolute Nucleated RBC 0.01 Nucleated RBC % 0.1 Sodium 135 Potassium 4.1 Chloride 105 Carbon Dioxide 22 Anion Gap 8 BUN 16 Creatinine 1.14 Est GFR ( Amer) 82.4 Est GFR (Non-Af Amer) 64.1 BUN/Creatinine Ratio 14.0 Glucose 126 H POC Glucose (mg/dL) Hemoglobin A1c Lactic Acid 2.3 H* Calcium 9.5 Total Bilirubin 0.60 AST 12 L ALT 23 Alkaline Phosphatase 94 Troponin I 0.05 H* Total Protein 6.8 Albumin 3.9 Globulin 2.9 Albumin/Globulin Ratio 1.3 Triglycerides Cholesterol LDL Cholesterol HDL Cholesterol Vitamin A Whole Bld Vitamin B1 Vitamin B2 Vitamin B3 (Niacin) Pyridoxal 5-Phosphate Pyridoxic Acid Vitamin B12 Vit D 1,25-Dihydroxy Vitamin E Vitamin K TSH Urine Color Urine Appearance Urine pH Ur Specific [place] Urine Protein Urine Ketones Urine Blood Urine Nitrate Urine Bilirubin Urine Urobilinogen Ur Leukocyte Esterase Urine Glucose Salicylates Urine Opiates Screen Acetaminophen Ur Barbiturates Screen Ur Phencyclidine Scrn Ur Amphetamines Screen U Benzodiazepines Scrn Urine Cocaine Screen U Cannabinoids Screen Serum Alcohol Consultants: 1. Hospitalist - Hypotension, Syncopal event 2. GI - chronic diarrhea 3. Neurology - Significant depression since 07/2016 CVA Discharge Meds: Will hold meds until volume status normalized.\\ Follow-Up: Patient to return to [facility] once medically cleared on medical floor. Clear for Discharge: Other - required mx of severe dehydration Inpatient DSM-IV Dx: Major depressive d/o, recurrent, severe w/o psychosis. Discharge Planning - Discharge Planning Discharge Plan: Inpatient Hospitalization Medications: Will Hold all meds until volume status normalized. Discharge Planning: Prescriptions provided for discharge [] Yes [] No Follow up care details as per social work arrangements. Patient response to discharge plan: [] eager for discharge [] agreeable with discharge plan [] ambivalent about discharge [] disagrees with discharge today
== END 2017-01-03 02:50 | DRG 751 ==
LOC: ED 12:44 → BSU 22:18
PROVIDERS: ADMIT Psychiatry & Neurology Psychiatry; ATTEND Psychiatry & Neurology Psychiatry
PROC: GZHZZZZ Group Psychotherapy (ICD-10-PCS; principal; 2016-12-16)
DX: F33.2 Major depressive disorder, recurrent severe without psychotic features (principal); R45.851 Suicidal ideations; R00.1 Bradycardia, unspecified; E78.5 Hyperlipidemia, unspecified; E11.9 Type 2 diabetes mellitus without complications; K52.9 Noninfective gastroenteritis and colitis, unspecified; E86.0 Dehydration; F41.9 Anxiety disorder, unspecified; K59.00 Constipation, unspecified; G47.00 Insomnia, unspecified; I95.1 Orthostatic hypotension; G47.33 Obstructive sleep apnea (adult) (pediatric); I10 Essential (primary) hypertension; Z91.5 Personal history of self-harm; Z88.0 Allergy status to penicillin; Z86.73 Personal history of transient ischemic attack (TIA), and cerebral infarction without residual deficits; Z81.8 Family history of other mental and behavioral disorders
CPT/HCPCS: 36415; 74020; 80053; 80061; 80307; 80320; 80329; 81003; 82542; 82607; 82652; 83036; 83605; 84207; 84252; 84425; 84443; 84446; 84484; 84590; 84591; 84597; 85025; 90853; 93005; 99222; 99231; 99232; 99238; A9270-GY; G0480

== ENCOUNTER 2017-01-03 02:47 | Observation (INO) | payer BC ==
[2017-01-03] MEDS: NS 0.9% 1000 ML* 2,000 ML IV ONE (03:25)
[2017-01-03] MEDS ORDERED: NS 0.9% 1000 ML* 1,000 ML IV ONE ×2 (04:24→04:26)
--- NOTE | 2017-01-03 06:31 | HP ---
H&P (Free Text) History and Physical: H&P post-CAT response MEGA White, a 66M HX DM2, HTN, HLD, TIA admitted to [facility] for major depressive disorder with high risk suicidal ideations, was a CAT call found upon my arrival markedly hypo-responsive & diaphoretic being held up in a chair in his room's doorway by nursing. Adequate sternal rub failed to rouse, but he gradually came around over the next couple of minutes while information was being gathered. Upon awakening, he was fatigued, but oriented to person, place, situation, & time. No convulsions occurred. He states that he got up to urinate , became light-headed without spinning and then woke up in the chair. He denied other prodromal symptoms, specifically chest pain, SOB, palpitations, nausea, focal W/N/T, or other issues. Of note, his beta jamie was changed today from metoprolol to propranolol. H&P and last daily note reviewed. He was found profoundly orthostatic systlolic 120s lying dropped to 80s with sitting. Standing was not performed. He was transferred to ED, received 3L NS IV, but remained orthostatic although improved with a lying systolic of 150s, sitting of 120s, and standing of 80s. Pulse remains consistently in the 50s 2nd propranolol regardless of position. Patient admits to poor PO intake for weeks 2nd depression related anorexia. PMHX: DM2, TIA, HTN, HLD, RC, major depression w/ suicidality Ambulatory Orders Nursing to reconcile. 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 Orthostatics: Lying: BP 126/71 P 53 saO2 96%; Sitting: BP 86/58 P 56 saO2 98%; Standing: not performed Laboratory Results - last 24 hr 01/02/17 01/02/17 01/03/17 07:40 16:54 01:40 WBC RBC Hgb Hct MCV MCH MCHC RDW Plt Count MPV Neut % (Auto) Lymph % (Auto) [place] % (Auto) Eos % (Auto) Baso % (Auto) Absolute Neuts (auto) Absolute Lymphs (auto) Absolute Monos (auto) Absolute Eos (auto) Absolute Basos (auto) Absolute Nucleated RBC Nucleated RBC % Sodium Potassium Chloride Carbon Dioxide Anion Gap BUN Creatinine Est GFR ( Amer) Est GFR (Non-Af Amer) BUN/Creatinine Ratio Glucose POC Glucose (mg/dL) 141 H 144 H 107 H Lactic Acid Calcium Total Bilirubin AST ALT Alkaline Phosphatase Troponin I Total Protein Albumin Globulin Albumin/Globulin Ratio 01/03/17 01/03/17 01/03/17 01:52 01:52 01:52 WBC 8.4 RBC 4.35 Hgb 13.3 L Hct 38 L MCV 88 MCH 31 MCHC 35 RDW 13 Plt Count 180 MPV 9 Neut % (Auto) 44.2 Lymph % (Auto) 47.0 [place] % (Auto) 5.7 Eos % (Auto) 2.6 Baso % (Auto) 0.5 Absolute Neuts (auto) 3.7 Absolute Lymphs (auto) 3.9 Absolute Monos (auto) 0.5 Absolute Eos (auto) 0.2 Absolute Basos (auto) 0 Absolute Nucleated RBC 0.01 Nucleated RBC % 0.1 Sodium 135 Potassium 4.1 Chloride 105 Carbon Dioxide 22 Anion Gap 8 BUN 16 Creatinine 1.14 Est GFR ( Amer) 82.4 Est GFR (Non-Af Amer) 64.1 BUN/Creatinine Ratio 14.0 Glucose 126 H POC Glucose (mg/dL) Lactic Acid 2.3 H* Calcium 9.5 Total Bilirubin 0.60 AST 12 L ALT 23 Alkaline Phosphatase 94 Troponin I 0.05 H* Total Protein 6.8 Albumin 3.9 Globulin 2.9 Albumin/Globulin Ratio 1.3 While his troponin is 0.5, it is considered non-diagnostic as it was drawn prior to him being able to give an adequate HX now known to not have cardiac symptomotology & with an profound orthostasis found as causative issue for syncope. Additionally, the only available troponin drawn in 2016 was 0.4. Lactic acid is 2.3. general: disheveled older white male, NAD lungs: CTAB, normal effort CV: BR/RR abdomen: SNTND, NABS extremities: grossly intact, non-tender integument: diaphoretic Assessment: plan orthostatic hypotension with syncope : 2nd suspected volume depletion from chronically poor PO intake : CDU observation for continued IVFs : plan to return to [facility] once orthostasis adequately resolved major depression, severe, recurrent, active : high risk for suicide : requires one-to-one monitoring : continue current psychiatric regimen : psychiatry consulted DM2 : review meds once reconciled TIA : review meds once reconciled HTN : review meds once reconciled HLD : review meds once reconciled major depression w/ high risk suicidality : one to one : psychiatry consulted Admission Rational: CDU observation for orthostatic syncope DVTp: heparin SQ Code Status: full HCP: needs clarification
[2017-01-03] MEDS ORDERED: Acetaminophen TAB* 325 MG PO PRN (06:45)
[2017-01-03] MEDS ORDERED: NS 0.9% 1000 ML* 1,000 ML IV SCH (06:45)
[2017-01-03] MEDS ORDERED: Docusate CAP* 100 MG PO SCH (09:00)
[2017-01-03 09:20] LABS: BUN/Creatinine Ratio 13.1 (8-20); Calcium 8.8 mg/dL (8.6-10.3); EGFR African American 88.7 (>60); EGFR Non-African American 68.9 (>60); Potassium 4.3 mmol/L (3.5-5.0)
[2017-01-03 10:03] LABS: Troponin I 0.05 ng/mL (<0.04)
--- NOTE | 2017-01-03 10:40 | DS ---
Subjective - Subjective Service Types: 71541 Hosp DC Day Mgmt simple under 30 min Subjective: Patient noted to be visible most of the day in the milieu, pleasant, social with peers and attending groups. Patient reports ongoing benefit to mood and easy agitation. Patient denies med s/e's. Patient reports feeling ready for discharge. Patient is A&Ox4, linear and GD in TP, and future oriented in TC. Patient reports interest in getting back into his music. He has been seen many times playing the guitar in the milieu through the admission. Patient again denies SI/HI and AH/VH. Patient is psychiatrically stable. Discharge plan has been discussed and patient is amenable and acknowledges understanding. Patient instructed to call the crisis hotline, 911, or self present to a local ED if SI recurs. Patient was amenable and acknowledged understanding of family and community supports. Patient will be discharge home with his mother who has come to pick him up Objective - Appearance Appearance: Thin Framed Dysmorphic Features: No Hygiene: Normal Grooming: Fairly Well Kept - Behavior Psychomotor Activities: Normal Exhibits Abnormal Movement: No - Attitude and Relatedness Attitude and Relatedness: Cooperative Eye Contact: Fair - Speech Quality: Unpressured Latencies: Normal Quantity: Terse Treatment Course & Assessment Clinical Course & Impression: HOSPITAL COURSE: PERTINENT LABS: Consultants: none Discharge Meds: Follow-Up: Appt. for within the next 2 weeks scheduled by SW with provider. Clear for Discharge: Adequate Clinical Respons, Acceptable Safety Profile Discharge Planning - Discharge Planning Discharge Plan: Inpatient Hospitalization Recommendations for Continuing Care: Routine Metabolic Monitoring Medications: Current Medications Acetaminophen (Tylenol Tab*) 650 mg PO Q6H PRN PRN Reason: FEVER/PAIN Docusate Sodium (Colace Cap*) 200 mg PO BID [facility] Last Admin: 01/03/17 07:47 Dose: 200 mg Sodium Chloride (Ns 0.9% 1000 Ml*) 1,000 mls @ 150 mls/hr IV PER RATE [facility] Last Admin: 10/10/17 07:45 Dose: 150 mls/hr Omeprazole (Prilosec Cap*) 20 mg PO DAILY@0600 [facility] Discharge Planning: Prescriptions provided for discharge [] Yes [x] No Follow up care details as per social work arrangements. Patient response to discharge plan: [] eager for discharge [x] agreeable with discharge plan [] ambivalent about discharge [] disagrees with discharge today
--- NOTE | 2017-01-03 11:01 | CONSULT ---
Identification - Patient Identification Reason for Psychiatric Consultation: Suicidal Ideation -: Patient is a 66 year old, M admitted on 01/03/17. - MHU Identification Employment Status: Employed Hx Psychiatric Hospitalization: Yes Prior Psychiatric Diagnosis: MDD(TRD), R, S,w/o PFs Arrived to Hospital Via: transfer from [facility] on 01/03/17 History - Objective HPI: Patient is a 66yo male with PPHx significant for MDD, R, S and Treatment Resistant Depression who self presents [place] [facility] reporting ongoing significant depressive symptoms associated with worsening SI no plan and also reported worsening ability to function at home. Patient was recently admitted to the [facility] in 2016 with the same presentation and was accepted and transferred to [facility] for ECT at discharge. Patient reports completing a course of 12 ECT treatments. He reports his depression persisted. Patient reports he did not report his ongoing significant depression to [facility] staff and reports he was discharged home. Patient reports his drop in mood and energy initially started after suffering a TIA on . He reports this occurred while visiting his son in [place]. He reports being cared for at [facility] in [place]. He reports receiving an MRI of the brain, echocardiogram , and carotid dopplers all being NEG. Of note, patient reports along with the drop in mood and energy, he also developed diarrhea which has continued daily since the TIA. Patient reports his PCP has done stool cx with NEG findings recently. Interestingly, patient reports hx of Partial Colectomy 2/2 precancerous polyps approx.10yrs ago. He reports he had a colonoscopy within the year which was NEG for pathology. He reports a now 40lb weight loss since his depression started after the TIA. Patient reports no appetite and ambivalence to his state of hygiene and grooming. Patient endorses anhedonia. He denies SI/HI currently, but reports a hx of recurrent SI and he reports experiencing more frequent SI w/o plan over the last 2 weeks. Patient reports his grandchildren are his primary protective factor. Patient has high suicide risk with hx of suicide attempt with a firearm, recent medical illness, current feelings of hopelessness, while having access to a firearm. He has a 22 calibur gun in his home. Patient has distressing financial pressures. Patient denies hx of physical, emotional, or sexual abuse. Patient denies hx of alcohol abuse. Patient denied hx of illicit substance use. Patient has been compliant with MH appts at [facility], but has not been med compliant. He is amenable to med modification. Patient had not had oral or IM psychotropic meds since ECT at [facility]. Early in admission, patient started on Seroquel for insomnia, which was uptitrated from 50mg po qhs to 150mg and up to 300mg po qhs. He reported benefit to sleep, but with addition of Melatonin, patient reported and was observed to sleep 7-8hrs at night. Zoloft was initiated at 100mg po qdaily for mood and anxiety, and uptitrated to 200mg po daily. A stimulant was determined to be the next approach for treatment of patient's TRD. Ritalin was initiated at 5mg po BID(7am and 2pm) for TRD. Neurology was consulted to vic for a neurologic etiology of patients TRD and neurovegetative symptoms. Patient reported diarrhea daily since his TIA in 07/2016. Patient's PCP contacted and GI consulted for tx recommendations. Vitamins KEAD and B vitamins levels due to question of GI malabsorption with hx of diarrhea since his 07/2016 TIA and hx of Partial Colectomy. Metformin at 1000mg po BID was HELD as per PCP it is associated with diarrhea. Fingerstick BS @ [facility] were observed. Ultimately Loperamide 4mg po x1 given 12/22/16. Patient reported no further diarrhea. Patient experienced next constipation which was alleviated by Colace daily and MagCitratex1. Metformin restarted late last week at 500mg po BID for DM2. Paitent was compliant with Ritalin increased from 10mg po BID to 15mg po BID and Zoloft at 200mg po daily and Wellbutrin SR started at 100mg po BID and up- titrated to Wellbutrin XL formulation 450mg po qam on Monday. He has had benefit to insomnia with Seroquel up-titrated to 300mg po qhs and addition of Melatonin 6mg po qhs. On 01/03/17 approx 2am, staff reports, patient was "observed entering bathroom by staff with unsteady gait, staff approached Pt to assist with gait. When asked how he was feeling, Pt stated "Dizzy," and began to collapse towards staff and bathroom sink, staff caught Pt mid-collapse, no injury noted. Staff called for assistance and Pt was lowered to chair. Pt jovel in color, breathing shallow and rapid. Pt became unresponsive while sitting in the chair, was unarousable to voice and painful stimuli. CAT team called @ 0130, arrived at 0135. VS as follows, BP-133/79, R-16, P-56, FS BG-107. Pt observed to respond to painful stimuli by hospitalist, noted to be more responsive, assisted to the bed. CAT team assessment deemed Pt should be transferred to ED for further evaluation. On-call psychiatrist contacted and order for discharge to ED obtained. Pt was transferred via wheelchair to the ED @ 0245". Patient had IVFs in the ED. EKG showed sinus bradycardia, Trop were NEG. Patient admitted to the medical floor for ongoing monitoring / evaluation / treatment of dehydration and syncopal event. During interview on the medical floor, patient is much more full and calm in affect. Patient reports ongoing depressed mood, but happy he is feeling better. Patient reports 3L of IVFs between the ED and on the floor. Patient reports no SI/HI or AH/VH today. Patient informed Seroquel will be dropped from 300mg po qhs to 100mg po qhs for insomnia. This is the only med patient has had benefit from on insomnia. Will monitor on this reduced dose with Melatonin 6mg po qhs being re-started. Will re-start Zoloft at 200mg po qam for mood as well. Will re -start Ritalin, but at 10mg po daily. Patient amenable to transfer back to [facility] for ongoing psychiatric care. Lab Results: Laboratory Tests 01/03/17 01/03/17 08:37 08:39 Sodium 136 Potassium 4.3 Chloride 106 Carbon Dioxide 24 Anion Gap 6 BUN 14 Creatinine 1.07 Est GFR ( Amer) 88.7 Est GFR (Non-Af Amer) 68.9 BUN/Creatinine Ratio 13.1 Glucose 158 H Lactic Acid 1.1 Calcium 8.8 Troponin I 0.05 H* Exam Appearance: Thin Framed Hygiene: Normal Grooming: Fairly Well Kept Psychomotor Activities: Normal Exhibits Abnormal Movement: No Attitude and Relatedness: Cooperative Eye Contact: Fair - Speech Quality: Unpressured Latencies: Normal Quantity: Appropriate Patient's Decription of Mood: "Okay" Observed Affect: Fair Affect Consistent with: Euthymia Patient's Thought Process: Coherent Thought Content: No Passive Wish, No Suicidal Planning, No Homicidal Ideation, No Paranoid Ideation Experiencing Hallucinations: No, Sensorium is Clear Type of Hallucinations: Visual: No, Auditory: No, Command: No Level of Consciousness: Alert Orientation: Yes Intact, Yes Orientated to Time, Yes Orientated to Place, Yes Orientated to Person Impulse Control: Intact Insight and Judgement: Fair Impression - Impression Clinical Impression: MDD(TRD), R, S,w/o PFs Problem List - MHU Problems Type of Problem: Medication Management Status of Problem: Active Problem: Depression with SI, TRD. Plan - Treatment Plan Treatment Plan: Recommendation: 1. Once medically cleared, patient should be transferred back to [facility] for ongoing psychiatric care of depression, neurovegetative symptoms, and SI. Medications: Current Medications Acetaminophen (Tylenol Tab*) 650 mg PO Q6H PRN PRN Reason: FEVER/PAIN Docusate Sodium (Colace Cap*) 200 mg PO BID [facility] Last Admin: 01/03/17 07:47 Dose: 200 mg Sodium Chloride (Ns 0.9% 1000 Ml*) 1,000 mls @ 150 mls/hr IV PER RATE [facility] Last Admin: 01/03/17 07:45 Dose: 150 mls/hr Omeprazole (Prilosec Cap*) 20 mg PO DAILY@0600 [facility]
[2017-01-03 16:17] VITALS: BP 178/87
--- NOTE | 2017-01-04 04:25 | TRS ---
DISCHARGE/TRANSFER SUMMARY: DATE OF ADMISSION: 01/03/17 DATE OF TRANSFER: 01/03/17 PRIMARY DIAGNOSIS: Orthostatic hypotension. SECONDARY DIAGNOSES: 1. Type 2 diabetes. 2. Transient ischemic attack. 3. Hypertension. 4. Hyperlipidemia. 5. Obstructive sleep apnea. 6. Major depression with suicidality. HISTORY OF PRESENT ILLNESS/HOSPITAL COURSE: This is a 66-year-old male with past medical history as outlined in the history of present illness on the day of admission who has been on [facility] for major depressive disorder with high-risk suicidal ideations. A CAT call was called. The patient was found less responsive, diaphoretic with relative hypotension. The patient reported that he was guiding up to use the bathroom, locking and became lightheaded and almost loss consciousness for which the CAT team was called. The patient was found with low blood pressure, resolved with lying flat. He was given fluid and he was still markedly orthostatic. He was given additional. He was admitted to the medical unit, given several liters of fluid on the following day. His orthostasis had resolved. He was ambulated approximately 100 feet down and back from the hallway without any lightheadedness, although he has continued to suffer from sensation of feeling unsteady, which was present prior to his presentation. There was some concern prior to presentation. This author agrees that some of his unsteadiness was secondary to medication effect _ _present__ status post presentation to the hospital. The patient relays that for several months in the setting of his profound depression, he has been eating very little, likely contributing to his dehydration and profound orthostatic hypotension resulting in his near loss of consciousness and transfer to the medical unit. During no course of the hospital stay including at the CAT team that he relay chest pain. Troponin I checked at the time of his CAT call was 0.5 and a repeat lab test approximately 7 hours later remained same value. There were no complications of the patient's hospital stay. TIME SPENT: Greater than 45 minutes were spent on the discharge of this patient , greater than half was spent [id number] with the patient in coordination of care. [id number]/CPS #: [id number] MARIBEL
[2017-01-04] MEDS ORDERED: Omeprazole CAP* 20 MG PO SCH (06:00)
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
== END 2017-01-03 17:15 ==
LOC: ED 02:47 → MED 05:31
PROVIDERS: ADMIT Hospitalist; ATTEND Internal Medicine
DX: I95.1 Orthostatic hypotension (principal); F33.9 Major depressive disorder, recurrent, unspecified; E11.9 Type 2 diabetes mellitus without complications; Z86.73 Personal history of transient ischemic attack (TIA), and cerebral infarction without residual deficits; I10 Essential (primary) hypertension; E87.5 Hyperkalemia; Z88.0 Allergy status to penicillin
CPT/HCPCS: 36415; 80048; 83605; 84484; 96360; 96361; 99283; A9270-GY; G0378

== ENCOUNTER 2017-01-03 13:43 | Inpatient (IN) | payer BC ==
[2017-01-03] MEDS ORDERED: Nicotine Inhaler* 10 MG AMP INH PRN (15:10)
[2017-01-03] MEDS ORDERED: Acetaminophen TAB* 325 MG PO PRN (15:10)
[2017-01-03] MEDS ORDERED: Nicotine GUM* 2 MG PO PRN (15:10)
[2017-01-03] MEDS ORDERED: Al Hydrox/Mg Hydrox/Simet LIQ* 30 ML UDC PO PRN (15:10)
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
[2017-01-03] MEDS ORDERED: Mouth Piece, Nicotine* 1 EACH CARTRIDGE INH ONE (18:00)
[2017-01-03] MEDS ORDERED: Magnesium CITRATE* 300 ML BTL PO ONE (19:30)
[2017-01-03] MEDS: Atorvastatin* 20 MG TAB PO SCH (20:54)
[2017-01-03] MEDS: metFORMIN* 500 MG TAB PO SCH (20:54)
[2017-01-03] MEDS: QUEtiapine TAB* 100 MG PO SCH (20:54)
[2017-01-03] MEDS: Docusate CAP* 100 MG PO SCH (20:54)
[2017-01-03] MEDS: CMCS:Melatonin (NF) 3 MG TAB PO SCH (20:54)
[2017-01-03] MEDS ORDERED: traZODone TAB* 100 MG PO SCH (21:00)
[2017-01-03] MEDS ORDERED: QUEtiapine TAB* 100 MG PO SCH (21:00)
[2017-01-03] MEDS ORDERED: Sodium Phosphate ADULT ENEMA* 118 ml bottle PR PRN (22:13)
[2017-01-04] MEDS ORDERED: Methylphenidate TAB* 10 MG PO SCH (07:00)
[2017-01-04] MEDS ORDERED: Sertraline* 100 MG TAB PO SCH ×2 (09:00)
--- NOTE | 2017-01-04 10:19 | PN ---
Subjective - Subjective Service Type: 82133 Hosp care 15 min low complexity Subjective: Per staff notes today 01/04/17: "at 15:45. BP: 140/77, HR: 78, O2: 100%, Temperature: 98.9 F, Respirations: 18. Patient was arising in bed when this inspector automatic typewriter walked in to take vitals. Patient appeared sturdy when rising and sitting back down. When vitals were being taken the patient started breathing heavily. Patient reported that he was not doing well. Patient reported that he was on the toilet all night last night, and that he was upset that he had to wear diapers. Patient reported that he was about to use the bathroom again before this inspector automatic typewriter came into the room. Patient went back to bed as this inspector automatic typewriter was leaving the room. Five minutes later this inspector automatic typewriter checked in on the patient and the patient was relaxing on his bed with one leg up and his hand behind his head. Respirations appeared to be even and unlabored. Will continue to monitor for any changes in patient status." "Patient showered independently and was observed ambulating from bathroom without his walker. He was encouraged to come to the milieu and eat lunch; patient did get his lunch tray, but declined eating, stating that he "can't". Patient declined feelings of dizziness but reports feeling "shaky". Patient walked to the phone without his walker without incident. He appeared tremulous when staff approached and needed assistance to sit down. Walker provided; patient utilized walker to ambulate back to his room with staff walking alongside him, he is again lying down. Safe on all visual checks. Will continue to monitor." "Patient ambulated independently with his walker to the bathroom where he reports he had a bowel movement. Patient asserts he feels there is still "more ". He was encouraged to continue to stay hydrated and eat lunch- patient verbalized understanding/agreement." "Patient accepted a.m. medications from medication RN with one time order of mag citrate. Patient verbalized understanding that mag citrate should alleviate constipation; he verbalized understanding of this plan of care. Lying in bed at this time. Safe on all visual checks. Will continue to monitor." "Patient declined a.m. medications this morning, reportedly telling medication RN that he does not want to take his medications because he is constipated. Patient had declined offer of prn enema earlier this morning. He does appear increasingly fidgety at times, appearing to intermittently move bilateral legs in a tremulous manner, that he states he has been trying to control. Patient does appear in control of this at times, as evidenced by slowing motion of legs , with instruction, to place socks on earlier this morning." "Patient is alert and oriented, he makes good eye contact and is able to make his needs known. Patient reports that he feels focused on his bowels, and states that since last evening when he reports a painful bowel movement, he has not been able to go to the bathroom again. He states that he feels the stool is stuck and reports that he tried to sit on the toilet this morning, but was not successful. Patient currently lying in bed without pants on, and declines putting on clothing and declines offer of assistance to the bathroom. Patient has been drinking fluids but he declined breakfast food. Patient reported dizzy when his blood sugar was taken in a.m-- FS= 164 @ 0740." "He admits to feelings of depression, but denies current suicidal ideation or planning. Patient re-directs conversation to feelings of constipation, and appears unable to focus on other topics." "Patient has call keene at bedside and is wearing red safety socks with tread. Patient verbalized understanding and agreement to use the call keene." Patient noted to be lying in bed most of today. He was sitting alone on a couch in the milieu. On interview, patient displayed a moderate to severe tremor. He has a yellow pitcher of water in his hand. He denied CROSS, CP, or Abd pain. Patient reported feeling SOB and was breathing more rapid and deeper than normal. He reported feeling shakey. His affect was calm. He displayed good eye contact. He was linear in TP and TC involved his ambulating with the walker given by RN due to his new tremor. Patient returned from the medical floor late night due to report of syncopal event in which he was noted to slide down a wall in his bathroom. Patient also had instance where he became dizzy after getting up from bed and falling, staff was there to catch him. It was reported by staff that patient has had multiple falls on the unit, but did not tell anyone. On the medical floor patient received 3L IVFs. He was noted on my exam on the medical floor yesterday afternoon to be calm and full in affect. He reported being happy he was feeling no dizziness or light headedness since receiving the IVFs. Patient was noted to be calm, resting comfortably, without tremor, in his bed. He denied SI/HI and AH /VH. Prior to patient's transfer to evaluate the syncopal event, patient had been on stimulant Ritalin for 2 weeks and Wellbutrin for approx 1 week. Patient informed both will be discontinued due to possible hyper-stimulatory effect on patient's system and it's property of further reducing patient's appetite. Patient was noted to have been more full in affect, have improved energy and participation in groups though on these 2 meds. Patient informed EKG today noted a prolonged QTc, ongoing from his EKG on the unit. BP, HR, and O2 sat were wnl. He was informed Zoloft would be decreased from 200mg to 100mg due to it's property of prolonging QTc interval. Patient did fall at approx. 2am while attempting to ambulate to the bathroom. Patient informed sleep would be observed on 100mg of Seroquel instead of 300mg as Seroquel has known alpha -1 inhibitory property. Patient amenable to plan. Will continue to monitor patient' s ongoing low mood and depressive symptoms. He again denies SI/HI and AH/VH. Patient seen by PT and OT to eval his ability to perform ADLs and iADLs independently living alone. He was noted by PT and OT to have no need for their services. PT noted patient walking with steady gait at times and at others, requiring assistance to stand and to walk along side him with the walker. Patient also reported falsely that he'd been having watery stools which may have contributed to his weakness, tremor and unsteady gait. Patient though has been bowel focused all day on his constipation issues. Objective - Appearance Appearance: Well Developed/Nourished Dysmorphic Features: No Hygiene: Normal Grooming: Disheveled - Behavior Psychomotor Activities: Abnormal-Increased Exhibits Abnormal Movement: Yes - Attitude and Relatedness Attitude and Relatedness: Cooperative Eye Contact: Fair - Speech Quality: Unpressured Latencies: Normal Quantity: Terse - Mood Patient's Decription of Mood: "Anxious" - Affect Observed Affect: Tense Affect Consistent with: Dysphoria - Thought Process Patient's Thought Process: Coherent Thought Content: Yes Passive Wish, No Suicidal Planning, No Homicidal Ideation, No Paranoid Ideation - Sensorium Experiencing Hallucinations: No, Sensorium is Clear Type of Hallucinations: Visual: No, Auditory: No, Command: No - Level of Consciousness Level of Consciousness: Alert Orientation: Yes Intact, Yes Orientated to Time, Yes Orientated to Place, Yes Orientated to Person - Impulse Control Impulse Control: Intact - Insight and Judgement Insight and Judgement: Fair - Group Participation Particating in Group Activities: Yes - Medication Management Medication Management Adherence: Yes Assessment - Assessment Merits Inpatient Hospitalization: For Immediate Safety, For Stabilization Inpatient DSM-IV Dx: 1. 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 2. r/o PD vs DLB. 3. r/o Malingering. 4. r/o Factitious Disorder Imposed on Self Plan - Plan Treatment Plan: Name: VANE LOPEZ II Birthdate: 1950 [id number] 1. Continue admission to [facility] for symptom mx. 2. PT/OT consulted, both recommended no further PT/OT services. 3. Considering Neurology consult for rule-out dx of PD vs DLB. 4 EKG today(01/04/17) showed NSR, 70s, with prolonged QTC greater than nml limits. Vitals today(01/04/17) showed BP, HR, and O2 sat all wnl. Will re-start Ramipril 10mg daily for HTN, continue Metoprolol 25mg po daily for HTN and Prolonged-QTc. Continue Metformin at 500mg po BID for DM2 and Atorvastatin 20mg po qhs for HLD. 5 Ritalin D/C'd due to patient's recent syncopal event and associated hypotension and bradycardia. 6. Continue Zoloft at reduced dose from 200mg po qam to 100mg po qam for anxiety/mood, due to drug's pro-longation of QTc. Patient continues to be focused on his bowels. 7. Wellbutrin D/C'd. Patient's severe tremor and SOB is likely not Wellbutrin withdrawal syndrome as he has been on med approx 7 days. 8. Continue Seroquel at decreased dose from 300mg po qhs to 100mg po qhs for intractable insomnia, due to drug's alpha -1 blockade and lowering of BP. 9. Continue Melatonin 6mg po qhs for ongoing insomnia on Seroquel 300mg po qhs. 10. Patient encouraged to take 8-9 cups of water daily and appropriate nutrition at meals. 11. Fingerstick BS @ [facility]. Blood sugars have been mildly to moderately elevated , continue current DM2 mx. 12.Inpt SW has reached out to medicaid navigators to request they help pt apply for secondary medicaid so that Pt. may qualify for SPOE and ACT services. 13. Will initiate process for transfer to [facility]. Patient reports he will refuse this. 14. Will request family meeting. 15. Collateral obtained from PCP(Pearl saucedo) and [facility] provider. 16. Patient to participate in milieu activities and groups. Continued Medication Management: Different Medication Medications: Current Medications Acetaminophen (Tylenol Tab*) 650 mg PO Q4H PRN PRN Reason: for pain; or Temp >101 F Al Hydrox/Mg Hydrox/Simethicone (Maalox Plus*) 30 ml PO Q4H PRN PRN Reason: INDIGESTION Aspirin (Aspirin Ec Low Dose*) 81 mg PO DAILY [facility] Atorvastatin Calcium (Lipitor*) 20 mg PO DAILY [facility] Last Admin: 01/03/17 20:54 Dose: 20 mg Docusate Sodium (Colace Cap*) 200 mg PO BID [facility] Last Admin: 01/03/17 20:54 Dose: 200 mg Melatonin (Melatonin (Nf)) 6 mg PO BEDTIME [facility] Last Admin: 01/03/17 20:54 Dose: 6 mg Metformin HCl (Glucophage*) 500 mg PO BID [facility] Last Admin: 01/03/17 20:54 Dose: 500 mg Methylphenidate HCl (Ritalin Tab*) 10 mg PO 0700,1400 [facility] Metoprolol Succinate (Toprol Xl Tab*) 25 mg PO DAILY [facility] Multivitamins (Theragran Tab*) 1 tab PO DAILY [facility] Nicotine (Nicotine Inhaler*) 10 mg INH Q2H PRN PRN Reason: CRAVING Nicotine Polacrilex (Nicotine Gum*) 2 mg PO Q2H PRN PRN Reason: CRAVING Omeprazole (Prilosec Cap*) 20 mg PO DAILY@0600 [facility] Quetiapine Fumarate (Seroquel Tab*) 100 mg PO BEDTIME [facility] Last Admin: 01/03/17 20:54 Dose: 100 mg Sertraline HCl (Zoloft*) 200 mg PO DAILY [facility] Sodium Biphosphate/Sodium Phosphate (Fleet Enema*) 1 bottle [place] DAILY PRN PRN Reason: CONSTIPATION - Discharge Plan Discharge Plan: Consider Longer Term Tx Outpatient Program: [facility]
[2017-01-04] MEDS ORDERED: Magnesium CITRATE* 300 ML BTL PO ONE (10:34)
[2017-01-04] MEDS: Vitamin THERAPEUTIC TAB PO SCH (10:52)
[2017-01-04] MEDS: Omeprazole CAP* 20 MG PO SCH (10:52)
[2017-01-04] MEDS: Aspirin EC Low Dose* 81 MG TAB.EC PO SCH (10:52)
[2017-01-04] MEDS: Docusate CAP* 100 MG PO SCH ×2 (10:53→21:31)
[2017-01-04] MEDS: Atorvastatin* 20 MG TAB PO SCH (10:54)
[2017-01-04] MEDS: Metoprolol Succinate XL TAB* 25 MG PO SCH (10:54)
[2017-01-04] MEDS: metFORMIN* 500 MG TAB PO SCH ×2 (10:55→21:31)
[2017-01-04] MEDS: Ramipril CAP* 10 MG PO SCH (19:59)
[2017-01-04] MEDS: CMCS:Melatonin (NF) 3 MG TAB PO SCH (21:31)
[2017-01-04] MEDS: QUEtiapine TAB* 100 MG PO SCH (21:31)
[2017-01-05] MEDS: Docusate CAP* 100 MG PO SCH ×2 (09:25→21:41)
[2017-01-05] MEDS: Metoprolol Succinate XL TAB* 25 MG PO SCH (09:25)
[2017-01-05] MEDS: Omeprazole CAP* 20 MG PO SCH (09:25)
[2017-01-05] MEDS: Atorvastatin* 20 MG TAB PO SCH (09:25)
[2017-01-05] MEDS: Aspirin EC Low Dose* 81 MG TAB.EC PO SCH (09:25)
[2017-01-05] MEDS: Ramipril CAP* 10 MG PO SCH (09:26)
[2017-01-05] MEDS: metFORMIN* 500 MG TAB PO SCH ×2 (09:26→21:25)
[2017-01-05] MEDS: Sertraline* 100 MG TAB PO SCH (09:26)
[2017-01-05] MEDS: Vitamin THERAPEUTIC TAB PO SCH (09:26)
--- NOTE | 2017-01-05 13:20 | PN ---
Subjective - Subjective Service Type: 33637 Hosp care 15 min low complexity Subjective: Patient noted to be visible in the milieu much of today. On interview, patient continues to display a moderate to severe tremor now focused to his LE bilaterally and his upper extremity are no longer tremulous. He reports episode of loose stool yesterday, requiring a diaper. Patient informed he should stop use of PRN MagCitrate for now. Will repeat abd X-ray which approx 1 week ago showed bowels full of stool. Patient may be constipated still. He denied CROSS, CP, or Abd pain. Patient reports ongoing feeling of SOB and was again breathing rapidly and deeply.He reported feeling shakey. He still ambulates with use of walker. This provider noted patient walk with lunch tray, pivot and steadily seat himself in a milieu chair w/o use of walker for stabilit. His affect was again calm with good eye contact. He was linear in TP and TC involved his desire to get better. He again denied SI/HI and AH/VH. Objective - Appearance Appearance: Thin Framed Dysmorphic Features: No Hygiene: Normal Grooming: Fairly Well Kept - Behavior Psychomotor Activities: Abnormal-Increased Exhibits Abnormal Movement: Yes - Attitude and Relatedness Attitude and Relatedness: Cooperative Eye Contact: Good - Speech Quality: Unpressured Latencies: Normal Quantity: Appropriate - Mood Patient's Decription of Mood: "Anxious" - Affect Observed Affect: Fair Affect Consistent with: Euthymia - Thought Process Patient's Thought Process: Coherent Thought Content: No Passive Wish, No Suicidal Planning, No Homicidal Ideation, No Paranoid Ideation - Sensorium Experiencing Hallucinations: No, Sensorium is Clear Type of Hallucinations: Visual: No, Auditory: No, Command: No - Level of Consciousness Level of Consciousness: Alert Orientation: Yes Intact, Yes Orientated to Time, Yes Orientated to Place, Yes Orientated to Person - Impulse Control Impulse Control: Intact - Insight and Judgement Insight and Judgement: Fair - Group Participation Particating in Group Activities: Yes - Medication Management Medication Management Adherence: Yes Assessment - Assessment Merits Inpatient Hospitalization: For Immediate Safety, For Stabilization Inpatient DSM-IV Dx: 1. 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 2. r/o PD vs DLB. 3. r/o Malingering. 4. r/o Factitious Disorder Imposed on Self Plan - Plan Treatment Plan: Name: VANE LOPEZ II Birthdate: 1950 [id number] 1. Continue admission [place] [facility] for symptom mx. 2. PT/OT consulted, both recommended no further PT/OT services. Will not consult Neurology on r/o PD or DLB as patient displaying inconsistent symptoms. 3. Will repeat abd X-ray today(01/05/17) which approx 1 week ago showed bowels full of stool. Patient may be constipated still. 4. EKG (01/04/17) showed NSR, 70s, with prolonged QTC greater than nml limits. Vitals (01/04/17) showed BP, HR, and O2 sat all wnl. Continue Ramipril 10mg daily for HTN, continue Metoprolol 25mg po daily for HTN and Prolonged-QTc. Continue Metformin at 500mg po BID for DM2 and Atorvastatin 20mg po qhs for HLD. 5. Ritalin D/C'd due to patient's recent syncopal event and associated hypotension and bradycardia. 6. Continue Zoloft at reduced dose from 200mg po qam to 100mg po qam for anxiety/mood, due to drug's pro-longation of QTc. Patient continues to be focused on his bowels. 7. Wellbutrin D/C'd. Patient's severe tremor and SOB is likely not Wellbutrin withdrawal syndrome as he has been on med approx 7 days. 8. Will D/C Seroquel due to drug's alpha -1 blockade and lowering of BP. Patient's severe tremor and SOB is likely not Seroquel withdrawal syndrome as he has been on med approx 2 weeks. 9. Continue Melatonin 6mg po qhs for ongoing insomnia. 10. Patient gives informed consent to start Doxepin at 25mg po qhs for insomnia. 11. Patient encouraged to take 8-9 cups of water daily and appropriate nutrition at meals. 12. Fingerstick BS @ [facility]. Blood sugars have been mildly to moderately elevated , continue current DM2 mx. 13.Inpt SW has reached out to medicaid navigators to request they help pt apply for secondary medicaid so that Pt. may qualify for SPOE and ACT services. 14. Will initiate process for transfer to [facility]. Patient reports he will refuse this. 15. Family meeting requested, expect a phone call to set up meeting from patient 's daughter per SIMA. 16. Collateral obtained from PCP(Pearl saucedo) and [facility] provider. 17. Patient to participate in milieu activities and groups. Medications: Current Medications Acetaminophen (Tylenol Tab*) 650 mg PO Q4H PRN PRN Reason: for pain; or Temp >101 F Al Hydrox/Mg Hydrox/Simethicone (Maalox Plus*) 30 ml PO Q4H PRN PRN Reason: INDIGESTION Aspirin (Aspirin Ec Low Dose*) 81 mg PO DAILY [facility] Last Admin: 01/05/17 09:25 Dose: 81 mg Atorvastatin Calcium (Lipitor*) 20 mg PO DAILY [facility] Last Admin: 01/05/17 09:25 Dose: 20 mg Docusate Sodium (Colace Cap*) 200 mg PO BID [facility] Last Admin: 01/05/17 09:25 Dose: 200 mg Melatonin (Melatonin (Nf)) 6 mg PO BEDTIME [facility] Last Admin: 01/04/17 21:31 Dose: 6 mg Metformin HCl (Glucophage*) 500 mg PO BID [facility] Last Admin: 01/05/17 09:26 Dose: 500 mg Metoprolol Succinate (Toprol Xl Tab*) 25 mg PO DAILY [facility] Last Admin: 01/05/17 09:25 Dose: 25 mg Multivitamins (Theragran Tab*) 1 tab PO DAILY [facility] Last Admin: 01/05/17 09:26 Dose: 1 tab Nicotine (Nicotine Inhaler*) 10 mg INH Q2H PRN PRN Reason: CRAVING Nicotine Polacrilex (Nicotine Gum*) 2 mg PO Q2H PRN PRN Reason: CRAVING Omeprazole (Prilosec Cap*) 20 mg PO DAILY@0600 [facility] Last Admin: 01/05/17 09:25 Dose: 20 mg Quetiapine Fumarate (Seroquel Tab*) 100 mg PO BEDTIME [facility] Last Admin: 01/04/17 21:31 Dose: 100 mg Ramipril (Altace Cap*) 10 mg PO DAILY [facility] Last Admin: 01/05/17 09:26 Dose: 10 mg Sertraline HCl (Zoloft*) 100 mg PO DAILY [facility] Last Admin: 01/05/17 09:26 Dose: 100 mg Sodium Biphosphate/Sodium Phosphate (Fleet Enema*) 1 bottle [place] DAILY PRN PRN Reason: CONSTIPATION - Discharge Plan Discharge Plan: Outpatient Follow Up
--- NOTE | 2017-01-05 14:13 | PN ---
[facility]: Group Therapy Note - Service Type Service Type: 09062 Group Psychotherapy - Cognitive Behavioral Group Therapy ( CBT):Patient was attentive and participatory in CBT programming this morning, and remained in good behavioral control. Patient expressed positive insights regarding relevant treatment interventions and goals.
--- NOTE | 2017-01-05 20:19 | RAD ---
Indication: Constipation. Abdominal pain. Comparison: December 23, 2016 Technique: Supine and upright views of the abdomen. Report: No radiographic evidence for free air. Colonic air-fluid levels without significant colonic dilatation. No dilated small bowel loops evident. RIGHT side abdominal suture lines most consistent with presence of bowel anastomosis. No suspicious calcifications or mass effect. Unremarkable soft tissue contours. IMPRESSION: 1. Decreased volume of formed stool at the colon compared with the December 23, 2016 exam. Colonic air-fluid levels suggest potential colitis/gastroenteritis. 2. Negative for small bowel dilatation to indicate bowel obstruction.
[2017-01-05] MEDS ORDERED: Amitriptyline TAB* 50 MG PO SCH (21:00)
[2017-01-05] MEDS: CMCS:Melatonin (NF) 3 MG TAB PO SCH (21:25)
[2017-01-05] MEDS: DOXEPIN 25 MG PO SCH (21:26)
[2017-01-06] MEDS: metFORMIN* 500 MG TAB PO SCH ×2 (09:33→21:37)
[2017-01-06] MEDS: Ramipril CAP* 10 MG PO SCH (09:33)
[2017-01-06] MEDS: Docusate CAP* 100 MG PO SCH ×2 (09:33→21:36)
[2017-01-06] MEDS: Vitamin THERAPEUTIC TAB PO SCH (09:33)
[2017-01-06] MEDS: Aspirin EC Low Dose* 81 MG TAB.EC PO SCH (09:34)
[2017-01-06] MEDS: Atorvastatin* 20 MG TAB PO SCH (09:34)
[2017-01-06] MEDS: Sertraline* 100 MG TAB PO SCH (09:34)
[2017-01-06] MEDS: Metoprolol Succinate XL TAB* 25 MG PO SCH (09:34)
[2017-01-06] MEDS: Omeprazole CAP* 20 MG PO SCH (09:35)
--- NOTE | 2017-01-06 10:20 | PN ---
Subjective - Subjective Service Type: 18547 Hosp care 15 min low complexity Subjective: Patient noted to be visible in the milieu much of today. Patient's daughter present on interview. Patient w/o tremor and demonstrates a strong and steady gait as we walked to dining room to talk. Patient reports no further weakness or tremor. He is full in affect and smiled during interview. Patient happy with his visit. He reports ongoing depressed mood, but endorses he feels better. Patient reports ongoing fleeting SI but no planning. Patient reports he will refuse recommendation to transfer to the [facility] for ongoing med modifications. Patient reports his daughter has opened her home to him. He reports he would rather this discharge disposition. He reports he will not be alone and have family to assist him in iADLs. Patient This provider asked for a family meeting to have the opportunity to ask if the children if they feel comfortable with patient discharge. Patient reports he feels ready for discharge. He has been med compliant with reduced regimen. He denies CROSS, CP, Abd pain. He denies N/V/C/D. He reports he is urinating wnl. He denies med s/e's. He again denied SI/HI and AH/VH. Objective - Appearance Appearance: Thin Framed Dysmorphic Features: No Hygiene: Normal Grooming: Fairly Well Kept - Behavior Psychomotor Activities: Normal Exhibits Abnormal Movement: No - Attitude and Relatedness Attitude and Relatedness: Cooperative Eye Contact: Fair - Speech Quality: Unpressured Latencies: Normal Quantity: Appropriate - Mood Patient's Decription of Mood: "Okay" - Affect Observed Affect: Fair Affect Consistent with: Euthymia - Thought Process Patient's Thought Process: Coherent Thought Content: Yes Passive Wish - reports no desire or intent to hurt himself , No Suicidal Planning, No Homicidal Ideation, No Paranoid Ideation - Sensorium Type of Hallucinations: Visual: No, Auditory: No, Command: No - Level of Consciousness Level of Consciousness: Alert Orientation: No Intact, No Orientated to Time, No Orientated to Place, No Orientated to Person - Impulse Control Impulse Control: Intact - Insight and Judgement Insight and Judgement: Fair - Group Participation Particating in Group Activities: Yes - Medication Management Medication Management Adherence: Yes Assessment - Assessment Merits Inpatient Hospitalization: For Immediate Safety, For Stabilization Inpatient DSM-IV Dx: 1. 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 2. r/o PD vs DLB. 3. r/o Malingering. 4. r/o Factitious Disorder Imposed on Self Plan - Plan Treatment Plan: Name: VANE LOPEZ II Birthdate: 1950 [id number] 1. Continue admission to [facility] for symptom mx. 2. PT/OT consulted, both recommended no further PT/OT services. Will not consult Neurology on r/o PD or DLB as patient displaying inconsistent symptoms. 3. Will repeat abd X-ray today(01/05/17) - no signs of constipation. 4. EKG (01/04/17) showed NSR, 70s, with prolonged QTC greater than nml limits. Vitals (01/04/17) showed BP, HR, and O2 sat all wnl. Continue Ramipril 10mg daily for HTN, continue Metoprolol 25mg po daily for HTN and Prolonged-QTc. Continue Metformin at 500mg po BID for DM2 and Atorvastatin 20mg po qhs for HLD. 5. Ritalin D/C'd due to patient's recent syncopal event and associated hypotension and bradycardia. 6. Continue Zoloft at reduced dose from 200mg po qam to 100mg po qam for anxiety/mood, due to drug's pro-longation of QTc. Patient continues to be focused on his bowels. 7. Wellbutrin D/C'd. Patient's severe tremor and SOB is likely not Wellbutrin withdrawal syndrome as he has been on med approx 7 days. 8. Will D/C Seroquel due to drug's alpha -1 blockade and lowering of BP. Patient's severe tremor and SOB is likely not Seroquel withdrawal syndrome as he has been on med approx 2 weeks. 9. Continue Melatonin 6mg po qhs for ongoing insomnia. 10. Continue Doxepin at 25mg po qhs for insomnia. 11. Patient encouraged to take 8-9 cups of water daily and appropriate nutrition at meals. 12. Fingerstick BS @ [facility]. Blood sugars have been mildly to moderately elevated , continue current DM2 mx. 13.Inpt SW has reached out to medicaid navigators to request they help pt apply for secondary medicaid so that Pt. may qualify for SPOE and ACT services. 14. Will initiate process for transfer to [facility]. Patient reports he will refuse this. 15. Family meeting requested, expect a phone call to set up meeting from patient 's daughter per SW. 16. Collateral obtained from PCP(Pearl saucedo) and [facility] provider. 17. Patient to participate in milieu activities and groups. Medications: Current Medications Acetaminophen (Tylenol Tab*) 650 mg PO Q4H PRN PRN Reason: for pain; or Temp >101 F Al Hydrox/Mg Hydrox/Simethicone (Maalox Plus*) 30 ml PO Q4H PRN PRN Reason: INDIGESTION Aspirin (Aspirin Ec Low Dose*) 81 mg PO DAILY [facility] Last Admin: 01/06/17 09:34 Dose: 81 mg Atorvastatin Calcium (Lipitor*) 20 mg PO DAILY [facility] Last Admin: 01/06/17 09:34 Dose: 20 mg Docusate Sodium (Colace Cap*) 200 mg PO BID [facility] Last Admin: 01/06/17 09:33 Dose: 200 mg Doxepin HCl (Doxepin (Nf)) 25 mg PO BEDTIME [facility] PRN Reason: Protocol Last Admin: 01/05/17 21:26 Dose: 25 mg Melatonin (Melatonin (Nf)) 6 mg PO BEDTIME [facility] Last Admin: 01/05/17 21:25 Dose: 6 mg Metformin HCl (Glucophage*) 500 mg PO BID [facility] Last Admin: 01/06/17 09:33 Dose: 500 mg Metoprolol Succinate (Toprol Xl Tab*) 25 mg PO DAILY [facility] Last Admin: 01/06/17 09:34 Dose: 25 mg Multivitamins (Theragran Tab*) 1 tab PO DAILY [facility] Last Admin: 01/06/17 09:33 Dose: 1 tab Nicotine (Nicotine Inhaler*) 10 mg INH Q2H PRN PRN Reason: CRAVING Nicotine Polacrilex (Nicotine Gum*) 2 mg PO Q2H PRN PRN Reason: CRAVING Omeprazole (Prilosec Cap*) 20 mg PO DAILY@0600 [facility] Last Admin: 01/06/17 09:35 Dose: 20 mg Ramipril (Altace Cap*) 10 mg PO DAILY [facility] Last Admin: 01/06/17 09:33 Dose: 10 mg Sertraline HCl (Zoloft*) 100 mg PO DAILY [facility] Last Admin: 01/06/17 09:34 Dose: 100 mg Sodium Biphosphate/Sodium Phosphate (Fleet Enema*) 1 bottle GA DAILY PRN PRN Reason: CONSTIPATION - Discharge Plan Discharge Plan: Outpatient Follow Up Additional Comments: ACT referral
[2017-01-06] MEDS: DOXEPIN 25 MG PO SCH (21:37)
[2017-01-06] MEDS: CMCS:Melatonin (NF) 3 MG TAB PO SCH (21:37)
[2017-01-07] MEDS: Vitamin THERAPEUTIC TAB PO SCH (09:12)
[2017-01-07] MEDS: Aspirin EC Low Dose* 81 MG TAB.EC PO SCH (09:13)
[2017-01-07] MEDS: Atorvastatin* 20 MG TAB PO SCH (09:13)
[2017-01-07] MEDS: Docusate CAP* 100 MG PO SCH ×2 (09:13→20:58)
[2017-01-07] MEDS: Ramipril CAP* 10 MG PO SCH (09:13)
[2017-01-07] MEDS: Sertraline* 100 MG TAB PO SCH (09:13)
[2017-01-07] MEDS: Omeprazole CAP* 20 MG PO SCH (09:13)
[2017-01-07] MEDS: Metoprolol Succinate XL TAB* 25 MG PO SCH (09:13)
[2017-01-07] MEDS: metFORMIN* 500 MG TAB PO SCH ×2 (09:13→20:58)
[2017-01-07] MEDS: CMCS:Melatonin (NF) 3 MG TAB PO SCH (20:58)
[2017-01-07] MEDS: DOXEPIN 25 MG PO SCH (20:59)
[2017-01-08] MEDS: Docusate CAP* 100 MG PO SCH ×2 (09:34→20:10)
[2017-01-08] MEDS: Metoprolol Succinate XL TAB* 25 MG PO SCH (09:34)
[2017-01-08] MEDS: Sertraline* 100 MG TAB PO SCH (09:34)
[2017-01-08] MEDS: Atorvastatin* 20 MG TAB PO SCH (09:34)
[2017-01-08] MEDS: Ramipril CAP* 10 MG PO SCH (09:34)
[2017-01-08] MEDS: Vitamin THERAPEUTIC TAB PO SCH (09:34)
[2017-01-08] MEDS: metFORMIN* 500 MG TAB PO SCH ×2 (09:35→20:09)
[2017-01-08] MEDS: Omeprazole CAP* 20 MG PO SCH (09:35)
[2017-01-08] MEDS: Aspirin EC Low Dose* 81 MG TAB.EC PO SCH (09:35)
[2017-01-08] MEDS: CMCS:Melatonin (NF) 3 MG TAB PO SCH (20:09)
[2017-01-08] MEDS: DOXEPIN 25 MG PO SCH (20:10)
[2017-01-09 08:11] VITALS: BP 145/78
[2017-01-09] MEDS: Docusate CAP* 100 MG PO SCH (09:20)
[2017-01-09] MEDS: Ramipril CAP* 10 MG PO SCH (09:20)
[2017-01-09] MEDS: metFORMIN* 500 MG TAB PO SCH (09:20)
[2017-01-09] MEDS: Aspirin EC Low Dose* 81 MG TAB.EC PO SCH (09:20)
[2017-01-09] MEDS: Atorvastatin* 20 MG TAB PO SCH (09:20)
[2017-01-09] MEDS: Metoprolol Succinate XL TAB* 25 MG PO SCH (09:20)
[2017-01-09] MEDS: Omeprazole CAP* 20 MG PO SCH (09:20)
[2017-01-09] MEDS: Sertraline* 100 MG TAB PO SCH (09:20)
[2017-01-09] MEDS: Vitamin THERAPEUTIC TAB PO SCH (09:20)
--- NOTE | 2017-01-09 11:29 | DCNOTE ---
Subjective - Subjective Service Types: [id number] [facility] Day Mgmt simple under 30 min Subjective: Patient noted to be visible in the milieu much of today. Patient's daughter present for family meeting prior to discharge. Patient noted again today to be w/o tremor and demonstrates a strong and steady gait as we walked to dining room to talk. He reports ongoing depressed mood, reports feeling better and daughter notes improvements in his affect and manner. She asked and was educated on signs of depression to look for which may alert her to symptom decompensation. Patient reports ongoing fleeting SI but no planning. He reports no intent or desire to kill himself. Patient happy he will be in his daughter's home around his young grandchildren. He reports he will not be alone and have family to assist him in iADLs. Daughter reports she feels comfortable with patient discharge. Patient reports he feels ready for discharge. He has been med compliant with reduced regimen. He denies N/V/C/D. Patient is A&Ox4, linear and GD in TP, and future oriented in regard to wanting 1 week to convalesce, and asked for a letter to his job for that and his time in the hospital as well. Patient again denies SI/HI and AH/VH. Patient is psychiatrically stable. Discharge plan has been discussed and patient is amenable and acknowledges understanding. Patient instructed to call the crisis hotline, 911, or self present to a local ED if SI intensifies or SI w/ planning recurs. Patient was amenable and acknowledged understanding of family and community supports. Patient will be discharged home with his daughter who has come to pick him up. Objective - Appearance Appearance: Thin Framed Dysmorphic Features: No Hygiene: Normal Grooming: Well Kept - Behavior Exhibits Abnormal Movement: No - Attitude and Relatedness Attitude and Relatedness: Cooperative Eye Contact: Good - Speech Quality: Unpressured Latencies: Normal Quantity: Appropriate - Mood Patient's Decription of Mood: "Good" - Affect Observed Affect: Fair Affect Consistent with: Euthymia - Thought Process Patient's Thought Process: Coherent Thought Content: No Passive Wish, No Suicidal Planning, No Homicidal Ideation, No Paranoid Ideation - Sensorium Experiencing Hallucinations: No, Sensorium is Clear Type of Hallucinations: Visual: No, Auditory: No, Command: No - Level of Consciousness Level of Consciousness: Alert Orientation: Yes Intact, Yes Orientated to Time, Yes Orientated to Place, Yes Orientated to Person - Impulse Control Impulse Control: Intact - Insight and Judgement Insight and Judgement: Good - Group Participation Particating in Group Activities: Yes - Medication Management Medication Management Adherence: Yes DC Assessment - Assessment Clinical Impression: HOSPITAL COURSE: Patient is a 66yo male with PPHx significant for MDD, R, S and Treatment Resistant Depression who self presents to the [facility] ED reporting ongoing significant depressive symptoms associated with worsening SI no plan and also reported worsening ability to function at home. Patient was recently admitted to the [facility] in 2016 with the same presentation and was accepted and transferred to [facility] for ECT at discharge. Patient reports completing a course of 12 ECT treatments. He reports his depression persisted. Patient reports he did not report his ongoing significant depression to [place] staff and reports he was discharged home. Patient reports his drop in mood and energy initially started after suffering a TIA on . He reports this occurred while visiting his son in [place]. He reports being cared for at [facility] in [place]. He reports receiving an MRI of the brain, echocardiogram , and carotid dopplers all being NEG. Of note, patient reports along with the drop in mood and energy, he also developed diarrhea which has continued daily since the TIA. Patient reports his PCP has done stool cx with NEG findings recently. Interestingly, patient reports hx of Partial Colectomy 2/2 precancerous polyps approx.10yrs ago. He reports he had a colonoscopy within the year which was NEG for pathology. He reports a now 40lb weight loss since his depression started after the TIA. Patient reports no appetite and ambivalence to his state of hygiene and grooming. Patient endorses anhedonia. He denies SI/HI currently, but reports a hx of recurrent SI and he reports experiencing more frequent SI w/o plan over the last 2 weeks. Patient reports his grandchildren are his primary protective factor. Patient has high suicide risk with hx of suicide attempt with a firearm, recent medical illness, current feelings of hopelessness, while having access to a firearm. He has a 22 calibur gun in his home. Patient has distressing financial pressures. Patient denies hx of physical, emotional, or sexual abuse. Patient denies hx of alcohol abuse. Patient denied hx of illicit substance use. Patient has been compliant with MH appts at [facility], but has not been med compliant. He is amenable to med modification. Patient had not had oral or IM psychotropic meds since ECT at [facility]. Early in admission, patient started on Seroquel for insomnia, which was uptitrated from 50mg po qhs to 150mg and up to 300mg po qhs. He reported benefit to sleep, but with addition of Melatonin, patient reported and was observed to sleep 7-8hrs at night. Zoloft was initiated at 100mg po qdaily for mood and anxiety, and uptitrated to 200mg po daily. A stimulant was determined to be the next approach for treatment of patient's TRD. Ritalin was initiated at 5mg po BID(7am and 2pm) for TRD. Neurology was consulted to vic for a neurologic etiology of patients TRD and neurovegetative symptoms. Patient reported diarrhea daily since his TIA in 07/2016. Patient's PCP contacted and GI consulted for tx recommendations. Vitamins KEAD and B vitamins levels due to question of GI malabsorption with hx of diarrhea since his 07/2016 TIA and hx of Partial Colectomy. Metformin at 1000mg po BID was HELD as per PCP it is associated with diarrhea. Fingerstick BS @ [facility] were observed. Ultimately Loperamide 4mg po x1 given 12/22/16. Patient reported no further diarrhea. Patient experienced next constipation which was alleviated by Colace daily and MagCitratex1. Metformin restarted late last week at 500mg po BID for DM2. Paitent was compliant with Ritalin increased from 10mg po BID to 15mg po BID and Zoloft at 200mg po daily and Wellbutrin SR started at 100mg po BID and up- titrated to Wellbutrin XL formulation 450mg po qam on Monday. He has had benefit to insomnia with Seroquel up-titrated to 300mg po qhs and addition of Melatonin 6mg po qhs. On 01/03/17 approx 2am, staff reports, patient was "observed entering bathroom by staff with unsteady gait, staff approached Pt to assist with gait. When asked how he was feeling, Pt stated "Dizzy," and began to collapse towards staff and bathroom sink, staff caught Pt mid-collapse, no injury noted. Staff called for assistance and Pt was lowered to chair. Pt jovel in color, breathing shallow and rapid. Pt became unresponsive while sitting in the chair, was unarousable to voice and painful stimuli. CAT team called @ 0130, arrived at 0135. VS as follows, BP-133/79, R-16, P-56, FS BG-107. Pt observed to respond to painful stimuli by hospitalist, noted to be more responsive, assisted to the bed. CAT team assessment deemed Pt should be transferred to ED for further evaluation. On-call psychiatrist contacted and order for discharge to ED obtained. Pt was transferred via wheelchair to the ED @ 0245". Patient had IVFs in the ED. EKG showed sinus bradycardia and prolonged QTc of >500, Trop were minimally elevated as well. Patient admitted to the medical floor for ongoing monitoring / evaluation / treatment of dehydration and syncopal event. Patient had total 3Ls IVFs and was asymptomatic on walking on the medical unit.Now back in the [facility], patient continues to be full and calm in affect. Patient reports ongoing depressed mood, but happy he is feeling better. He continues to have brighter affect, no further PMR and is more sponteous and engaged in recent interviews. Patient reports no SI/HI or AH/VH today x 3 days. Patient on new regimen: Seroquel will be dropped from 300mg po qhs to 100mg po qhs for insomnia due to alpha-1 blockade effect on patients BP while dehydrated.~ Started patient on Doxepine with benefit to insomnia per pt. ,with the continued Melatonin 6mg po qhs. Re-started Zoloft at 100mg po qam for mood as this med is noted to prolong QTc at max dose. Patient continues to do well in regard to energy and motivation even though Ritalin and Wellbutrin both were discontinued on re-admission to [facility]. Family meeting Monday with patients children regarding their comfort with his discharge to daughter Demarcus home as she has opened her home to patient to live with his young grandkids. On admission day #1, Patient noted to be lying in bed most of today. He was sitting alone on a couch in the milieu. On interview, patient displayed a moderate to severe tremor. He has a yellow pitcher of water in his hand. He denied CROSS, CP, or Abd pain. Patient reported feeling SOB and was breathing more rapid and deeper than normal. He reported feeling shakey. His affect was calm. He displayed good eye contact. He was linear in TP and TC involved his ambulating with the walker given by RN due to his new tremor. Patient returned from the medical floor late night due to report of syncopal event in which he was noted to slide down a wall in his bathroom. Patient also had instance where he became dizzy after getting up from bed and falling, staff was there to catch him. It was reported by staff that patient has had multiple falls on the unit, but did not tell anyone. On the medical floor patient received 3L IVFs. He was noted on my exam on the medical floor yesterday afternoon to be calm and full in affect. He reported being happy he was feeling no dizziness or light headedness since receiving the IVFs. Patient was noted to be calm, resting comfortably, without tremor, in his bed. He denied SI/HI and AH /VH. Prior to patient's transfer to evaluate the syncopal event, patient had been on stimulant Ritalin for 2 weeks and Wellbutrin for approx 1 week. Patient informed both will be discontinued due to possible hyper-stimulatory effect on patient's system and it's property of further reducing patient's appetite. Patient was noted to have been more full in affect, have improved energy and participation in groups though on these 2 meds. Patient informed EKG today noted a prolonged QTc, ongoing from his EKG on the unit. BP, HR, and O2 sat were wnl. He was informed Zoloft would be decreased from 200mg to 100mg due to it's property of prolonging QTc interval. Patient did fall at approx. 2am while attempting to ambulate to the bathroom. Patient informed sleep would be observed on 100mg of Seroquel instead of 300mg as Seroquel has known alpha -1 inhibitory property. Patient amenable to plan. Will continue to monitor patient' s ongoing low mood and depressive symptoms. He again denies SI/HI and AH/ VH.Patient seen by PT and OT to eval his ability to perform ADLs and iADLs independently living alone. He was noted by PT and OT to have no need for their services. PT noted patient walking with steady gait at times and at others, requiring assistance to stand and to walk along side him with the walker. Patient also reported falsely that he'd been having watery stools which may have contributed to his weakness, tremor and unsteady gait. Patient though has been bowel focused all day on his constipation issues. On admission day #3, Patient noted to be visible in the milieu much of today. Patient's daughter present on interview. Patient w/o tremor and demonstrates a strong and steady gait as we walked to dining room to talk. Patient reports no further weakness or tremor. He is full in affect and smiled during interview. Patient happy with his visit. He reports ongoing depressed mood, but endorses he feels better. Patient reports ongoing fleeting SI but no planning. Patient reports he will refuse recommendation to transfer to the [facility] for ongoing med modifications. Patient reports his daughter has opened her home to him. He reports he would rather this discharge disposition. He reports he will not be alone and have family to assist him in iADLs. Patient This provider asked for a family meeting to have the opportunity to ask if the children if they feel comfortable with patient discharge. Patient reports he feels ready for discharge. He has been med compliant with reduced regimen. He denies CROSS, CP, Abd pain. He denies N/V/C/D. He reports he is urinating wnl. He denied med s/e's. He again denied SI/HI and AH/VH. On day of discharge, admission day #6, patient noted to be visible in the milieu much of today. Patient's daughter present for family meeting prior to discharge. Patient notedagain today to be w/o tremor and demonstrates a strong and steady gait as we walked to dining room to talk. He reports ongoing depressed mood, reports feeling better and daughter notes improvements in his affect and manner. She asked and was educated on signs of depression to look for which may alert her to symptom decompensation. Patient reports ongoing fleeting SI but no planning. He reports no intent or desire to kill himself. Patient happy he will be in his daughter's home around his young grandchildren. He reports he will not be alone and have family to assist him in iADLs. Daughter reports she feels comfortable with patient discharge. Patient reports he feels ready for discharge. He has been med compliant with reduced regimen. He denies N/V/C/D. Patient is A&Ox4, linear and GD in TP, and future oriented in regard to wanting 1 week to convalesce, and asked for a letter to his job for that and his time in the hospital as well. Patient again denies SI/HI and AH/VH. Patient is psychiatrically stable. Discharge plan has been discussed and patient is amenable and acknowledges understanding. Patient instructed to call the crisis hotline, 911, or self present to a local ED if SI intensifies or SI w/ planning recurs. Patient was amenable and acknowledged understanding of family and community supports. Patient will be discharged home with his daughter who has come to pick him up. PERTINENT LABS: Laboratory Tests 01/04/17 01/04/17 01/05/17 07:42 16:52 07:41 POC Glucose (mg/dL) 164 H 161 H 194 H 01/06/17 01/08/17 07:34 17:08 POC Glucose (mg/dL) 149 H 185 H Consultants: PT and OT- eval for ability to live alone and perform ADLs and iADLs independently. Discharge Meds: Home Medications Medication Instructions Recorded Confirmed Type Aspirin EC Low Dose* [Ecotrin EC 81 mg PO DAILY #30 tab.ec 01/09/17 Rx Low Dose 81 MG*] Atorvastatin* 20 mg PO DAILY #30 01/09/17 Rx Doxepin (NF) 25 mg PO BEDTIME #30 cap 01/09/17 Rx Melatonin (NF) 6 mg PO BEDTIME #60 tab 01/09/17 Rx Metformin HCl 1,000 mg PO BID #60 01/09/17 Rx Omeprazole CAP* [Prilosec CAP* 20 20 mg PO DAILY@0600 #30 cap 01/09/17 Rx MG] Ramipril 10 mg PO DAILY #30 01/09/17 Rx Ramipril CAP* [Altace CAP*] 10 mg PO DAILY cap 01/09/17 Rx Sertraline* [Zoloft*] 100 mg PO DAILY #30 tab 01/09/17 Rx Toprol Xl 25 mg PO DAILY #30 01/09/17 Rx Vitamin THERAPEUTIC TAB* 1 tab PO DAILY #30 tab 01/09/17 Rx [Theragran TAB*] Follow-Up: Appt. for within the next 2 weeks scheduled by SW with provider. Clear for Discharge: Adequate Clinical Respons, Acceptable Safety Profile Inpatient DSM-IV Dx: 1. 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 2. r/o PD vs DLB. 3. r/o Malingering. 4. r/o Factitious Disorder Imposed on Self Discharge Planning - Discharge Planning Discharge Plan: Outpatient Follow Up Outpatient [facility] Recommendations for Continuing Care: Medication Management, Primary Care Followup Medications: Current Medications Acetaminophen (Tylenol Tab*) 650 mg PO Q4H PRN PRN Reason: for pain; or Temp >101 F Al Hydrox/Mg Hydrox/Simethicone (Maalox Plus*) 30 ml PO Q4H PRN PRN Reason: INDIGESTION Aspirin (Aspirin Ec Low Dose*) 81 mg PO DAILY [facility] Last Admin: 01/09/17 09:20 Dose: 81 mg Atorvastatin Calcium (Lipitor*) 20 mg PO DAILY [facility] Last Admin: 01/09/17 09:20 Dose: 20 mg Docusate Sodium (Colace Cap*) 200 mg PO BID [facility] Last Admin: 01/09/17 09:20 Dose: 200 mg Doxepin HCl (Doxepin (Nf)) 25 mg PO BEDTIME [facility] PRN Reason: Protocol Last Admin: 01/08/17 20:10 Dose: 25 mg Melatonin (Melatonin (Nf)) 6 mg PO BEDTIME [facility] Last Admin: 01/08/17 20:09 Dose: 6 mg Metformin HCl (Glucophage*) 500 mg PO BID [facility] Last Admin: 01/09/17 09:20 Dose: 500 mg Metoprolol Succinate (Toprol Xl Tab*) 25 mg PO DAILY [facility] Last Admin: 01/09/17 09:20 Dose: 25 mg Multivitamins (Theragran Tab*) 1 tab PO DAILY [facility] Last Admin: 01/09/17 09:20 Dose: 1 tab Nicotine (Nicotine Inhaler*) 10 mg INH Q2H PRN PRN Reason: CRAVING Nicotine Polacrilex (Nicotine Gum*) 2 mg PO Q2H PRN PRN Reason: CRAVING Omeprazole (Prilosec Cap*) 20 mg PO DAILY@0600 [facility] Last Admin: 01/09/17 09:20 Dose: 20 mg Ramipril (Altace Cap*) 10 mg PO DAILY [facility] Last Admin: 01/09/17 09:20 Dose: 10 mg Sertraline HCl (Zoloft*) 100 mg PO DAILY [facility] Last Admin: 01/09/17 09:20 Dose: 100 mg Sodium Biphosphate/Sodium Phosphate (Fleet Enema*) 1 bottle IN DAILY PRN PRN Reason: CONSTIPATION Discharge Planning: Prescriptions provided for discharge [x] Yes [] No Follow up care details as per social work arrangements. Patient response to discharge plan: [] eager for discharge [x] agreeable with discharge plan [] ambivalent about discharge [] disagrees with discharge today
--- NOTE | 2017-01-10 11:51 | DS ---
Subjective - Subjective Service Types: 77175 Hosp DC Day Mgmt simple under 30 min Subjective: MHU Discharge Note Patient noted to be visible in the milieu much of today. Patient's daughter present for family meeting prior to discharge. Patient noted again today to be w/o tremor and demonstrates a strong and steady gait as we walked to dining room to talk. He reports ongoing depressed mood, reports feeling better and daughter notes improvements in his affect and manner. She asked and was educated on signs of depression to look for which may alert her to symptom decompensation. Patient reports ongoing fleeting SI but no planning. He reports no intent or desire to kill himself. Patient happy he will be in his daughter's home around his young grandchildren. He reports he will not be alone and have family to assist him in iADLs. Daughter reports she feels comfortable with patient discharge. Patient reports he feels ready for discharge. He has been med compliant with reduced regimen. He denies N/V/C/D. Patient is A&Ox4, linear and GD in TP, and future oriented in regard to wanting 1 week to convalesce, and asked for a letter to his job for that and his time in the hospital as well. Patient again denies SI/HI and AH/VH. Patient is psychiatrically stable. Discharge plan has been discussed and patient is amenable and acknowledges understanding. Patient instructed to call the crisis hotline, 911, or self present to a local ED if SI intensifies or SI w/ planning recurs. Patient was amenable and acknowledged understanding of family and community supports. Patient will be discharged home with his daughter who has come to pick him up. Objective - Appearance Appearance: Thin Framed Dysmorphic Features: No Hygiene: Normal Grooming: Fairly Well Kept - Behavior Psychomotor Activities: Normal Exhibits Abnormal Movement: No - Attitude and Relatedness Attitude and Relatedness: Cooperative Eye Contact: Fair - Speech Quality: Unpressured Latencies: Normal Quantity: Appropriate - Mood Patient's Decription of Mood: "Fine" - Affect Observed Affect: Fair Affect Consistent with: Euthymia - Thought Process Patient's Thought Process: Coherent Thought Content: No Passive Wish, No Suicidal Planning, No Homicidal Ideation, No Paranoid Ideation - Sensorium Experiencing Hallucinations: No, Sensorium is Clear Type of Hallucinations: Visual: No, Auditory: No, Command: No - Level of Consciousness Level of Consciousness: Alert Orientation: Yes Intact, Yes Orientated to Time, Yes Orientated to Place, Yes Orientated to Person - Impulse Control Impulse Control: Intact - Insight and Judgement Insight and Judgement: Fair - Group Participation Particating in Group Activities: Yes - Medication Management Medication Management Adherence: Yes Treatment Course & Assessment Clinical Course & Impression: HOSPITAL COURSE: Patient is a 66yo male with PPHx significant for MDD, R, S and Treatment Resistant Depression who self presents to [place] [facility] reporting ongoing significant depressive symptoms associated with worsening SI no plan and also reported worsening ability to function at home. Patient was recently admitted to the [facility] in 2016 with the same presentation and was accepted and transferred to [facility] for ECT at discharge. Patient reports completing a course of 12 ECT treatments. He reports his depression persisted. Patient reports he did not report his ongoing significant depression to [facility] staff and reports he was discharged home. Patient reports his drop in mood and energy initially started after suffering a TIA on . He reports this occurred while visiting his son in [place]. He reports being [facility] [place]. He reports receiving an MRI of the brain, echocardiogram , and carotid dopplers all being NEG. Of note, patient reports along with the drop in mood and energy, he also developed diarrhea which has continued daily since the TIA. Patient reports his PCP has done stool cx with NEG findings recently. Interestingly, patient reports hx of Partial Colectomy 2/2 precancerous polyps approx.10yrs ago. He reports he had a colonoscopy within the year which was NEG for pathology. He reports a now 40lb weight loss since his depression started after the TIA. Patient reports no appetite and ambivalence to his state of hygiene and grooming. Patient endorses anhedonia. He denies SI/HI currently, but reports a hx of recurrent SI and he reports experiencing more frequent SI w/o plan over the last 2 weeks. Patient reports his grandchildren are his primary protective factor. Patient has high suicide risk with hx of suicide attempt with a firearm, recent medical illness, current feelings of hopelessness, while having access to a firearm. He has a 22 calibur gun in his home. Patient has distressing financial pressures. Patient denies hx of physical, emotional, or sexual abuse. Patient denies hx of alcohol abuse. Patient denied hx of illicit substance use. Patient has been compliant with MH appts at [facility], but has not been med compliant. He is amenable to med modification. Patient had not had oral or IM psychotropic meds since ECT at [facility]. Early in admission, patient started on Seroquel for insomnia, which was uptitrated from 50mg po qhs to 150mg and up to 300mg po qhs. He reported benefit to sleep, but with addition of Melatonin, patient reported and was observed to sleep 7-8hrs at night. Zoloft was initiated at 100mg po qdaily for mood and anxiety, and uptitrated to 200mg po daily. A stimulant was determined to be the next approach for treatment of patient's TRD. Ritalin was initiated at 5mg po BID(7am and 2pm) for TRD. Neurology was consulted to eval for a neurologic etiology of patients TRD and neurovegetative symptoms. Patient reported diarrhea daily since his TIA in 07/2016. Patient's PCP contacted and GI consulted for tx recommendations. Vitamins KEAD and B vitamins levels due to question of GI malabsorption with hx of diarrhea since his 07/2016 TIA and hx of Partial Colectomy. Metformin at 1000mg po BID was HELD as per PCP it is associated with diarrhea. Fingerstick BS @ [facility] were observed. Ultimately Loperamide 4mg po x1 given 12/22/16. Patient reported no further diarrhea. Patient experienced next constipation which was alleviated by Colace daily and MagCitratex1. Metformin restarted late last week at 500mg po BID for DM2. Paitent was compliant with Ritalin increased from 10mg po BID to 15mg po BID and Zoloft at 200mg po daily and Wellbutrin SR started at 100mg po BID and up- titrated to Wellbutrin XL formulation 450mg po qam on Monday. He has had benefit to insomnia with Seroquel up-titrated to 300mg po qhs and addition of Melatonin 6mg po qhs. On 01/03/17 approx 2am, staff reports, patient was "observed entering bathroom by staff with unsteady gait, staff approached Pt to assist with gait. When asked how he was feeling, Pt stated "Dizzy," and began to collapse towards staff and bathroom sink, staff caught Pt mid-collapse, no injury noted. Staff called for assistance and Pt was lowered to chair. Pt jovel in color, breathing shallow and rapid. Pt became unresponsive while sitting in the chair, was unarousable to voice and painful stimuli. CAT team called @ 0130, arrived at 0135. VS as follows, BP-133/79, R-16, P-56, FS BG-107. Pt observed to respond to painful stimuli by hospitalist, noted to be more responsive, assisted to the bed. CAT team assessment deemed Pt should be transferred to ED for further evaluation. On-call psychiatrist contacted and order for discharge to ED obtained. Pt was transferred via wheelchair to the ED @ 0245". Patient had IVFs in the ED. EKG showed sinus bradycardia and prolonged QTc of >500, Trop were minimally elevated as well. Patient admitted to the medical floor for ongoing monitoring / evaluation / treatment of dehydration and syncopal event. Patient had total 3Ls IVFs and was asymptomatic on walking on the medical unit.Now back in the [facility], patient continues to be full and calm in affect. Patient reports ongoing depressed mood, but happy he is feeling better. He continues to have brighter affect, no further PMR and is more sponteous and engaged in recent interviews. Patient reports no SI/HI or AH/VH today x 3 days. Patient on new regimen: Seroquel will be dropped from 300mg po qhs to 100mg po qhs for insomnia due to alpha-1 blockade effect on patients BP while dehydrated.~ Started patient on Doxepine with benefit to insomnia per pt. ,with the continued Melatonin 6mg po qhs. Re-started Zoloft at 100mg po qam for mood as this med is noted to prolong QTc at max dose. Patient continues to do well in regard to energy and motivation even though Ritalin and Wellbutrin both were discontinued on re-admission to [facility]. Family meeting Monday with patients children regarding their comfort with his discharge to daughter Demarcus home as she has opened her home to patient to live with his young grandkids. On admission day #1, Patient noted to be lying in bed most of today. He was sitting alone on a couch in the milieu. On interview, patient displayed a moderate to severe tremor. He has a yellow pitcher of water in his hand. He denied CROSS, CP, or Abd pain. Patient reported feeling SOB and was breathing more rapid and deeper than normal. He reported feeling shakey. His affect was calm. He displayed good eye contact. He was linear in TP and TC involved his ambulating with the walker given by RN due to his new tremor. Patient returned from the medical floor late night due to report of syncopal event in which he was noted to slide down a wall in his bathroom. Patient also had instance where he became dizzy after getting up from bed and falling, staff was there to catch him. It was reported by staff that patient has had multiple falls on the unit, but did not tell anyone. On the medical floor patient received 3L IVFs. He was noted on my exam on the medical floor yesterday afternoon to be calm and full in affect. He reported being happy he was feeling no dizziness or light headedness since receiving the IVFs. Patient was noted to be calm, resting comfortably, without tremor, in his bed. He denied SI/HI and AH /VH. Prior to patient's transfer to evaluate the syncopal event, patient had been on stimulant Ritalin for 2 weeks and Wellbutrin for approx 1 week. Patient informed both will be discontinued due to possible hyper-stimulatory effect on patient's system and it's property of further reducing patient's appetite. Patient was noted to have been more full in affect, have improved energy and participation in groups though on these 2 meds. Patient informed EKG today noted a prolonged QTc, ongoing from his EKG on the unit. BP, HR, and O2 sat were wnl. He was informed Zoloft would be decreased from 200mg to 100mg due to it's property of prolonging QTc interval. Patient did fall at approx. 2am while attempting to ambulate to the bathroom. Patient informed sleep would be observed on 100mg of Seroquel instead of 300mg as Seroquel has known alpha -1 inhibitory property. Patient amenable to plan. Will continue to monitor patient' s ongoing low mood and depressive symptoms. He again denies SI/HI and AH/ VH.Patient seen by PT and OT to eval his ability to perform ADLs and iADLs independently living alone. He was noted by PT and OT to have no need for their services. PT noted patient walking with steady gait at times and at others, requiring assistance to stand and to walk along side him with the walker. Patient also reported falsely that he'd been having watery stools which may have contributed to his weakness, tremor and unsteady gait. Patient though has been bowel focused all day on his constipation issues. On admission day #3, Patient noted to be visible in the milieu much of today. Patient's daughter present on interview. Patient w/o tremor and demonstrates a strong and steady gait as we walked to dining room to talk. Patient reports no further weakness or tremor. He is full in affect and smiled during interview. Patient happy with his visit. He reports ongoing depressed mood, but endorses he feels better. Patient reports ongoing fleeting SI but no planning. Patient reports he will refuse recommendation to transfer to the [facility] for ongoing med modifications. Patient reports his daughter has opened her home to him. He reports he would rather this discharge disposition. He reports he will not be alone and have family to assist him in iADLs. Patient This provider asked for a family meeting to have the opportunity to ask if the children if they feel comfortable with patient discharge. Patient reports he feels ready for discharge. He has been med compliant with reduced regimen. He denies CROSS, CP, Abd pain. He denies N/V/C/D. He reports he is urinating wnl. He denied med s/e's. He again denied SI/HI and AH/VH. On day of discharge, admission day #6, patient noted to be visible in the milieu much of today. Patient's daughter present for family meeting prior to discharge. Patient notedagain today to be w/o tremor and demonstrates a strong and steady gait as we walked to dining room to talk. He reports ongoing depressed mood, reports feeling better and daughter notes improvements in his affect and manner. She asked and was educated on signs of depression to look for which may alert her to symptom decompensation. Patient reports ongoing fleeting SI but no planning. He reports no intent or desire to kill himself. Patient happy he will be in his daughter's home around his young grandchildren. He reports he will not be alone and have family to assist him in iADLs. Daughter reports she feels comfortable with patient discharge. Patient reports he feels ready for discharge. He has been med compliant with reduced regimen. He denies N/V/C/D. Patient is A&Ox4, linear and GD in TP, and future oriented in regard to wanting 1 week to convalesce, and asked for a letter to his job for that and his time in the hospital as well. Patient again denies SI/HI and AH/VH. Patient is psychiatrically stable. Discharge plan has been discussed and patient is amenable and acknowledges understanding. Patient instructed to call the crisis hotline, 911, or self present to a local ED if SI intensifies or SI w/ planning recurs. Patient was amenable and acknowledged understanding of family and community supports. Patient will be discharged home with his daughter who has come to pick him up. PERTINENT LABS: Laboratory Tests 01/04/17 01/04/17 01/05/17 07:42 16:52 07:41 POC Glucose (mg/dL) 164 H 161 H 194 H 01/06/17 01/08/17 07:34 17:08 POC Glucose (mg/dL) 149 H 185 H Consultants: PT and OT- eval for ability to live alone and perform ADLs and iADLs independently. Discharge Meds: Home Medications Medication Instructions Recorded Confirmed Type Aspirin EC Low Dose* [Ecotrin EC 81 mg PO DAILY #30 tab.ec 01/09/17 Rx Low Dose 81 MG*] Atorvastatin* 20 mg PO DAILY #30 01/09/17 Rx Doxepin (NF) 25 mg PO BEDTIME #30 cap 01/09/17 Rx Melatonin (NF) 6 mg PO BEDTIME #60 tab 01/09/17 Rx Metformin HCl 1,000 mg PO BID #60 01/09/17 Rx Omeprazole CAP* [Prilosec CAP* 20 20 mg PO DAILY@0600 #30 cap 01/09/17 Rx MG] Ramipril 10 mg PO DAILY #30 01/09/17 Rx Ramipril CAP* [Altace CAP*] 10 mg PO DAILY cap 01/09/17 Rx Sertraline* [Zoloft*] 100 mg PO DAILY #30 tab 01/09/17 Rx Toprol Xl 25 mg PO DAILY #30 01/09/17 Rx Vitamin THERAPEUTIC TAB* 1 tab PO DAILY #30 tab 01/09/17 Rx [Theragran TAB*] Follow-Up: Appt. for within the next 2 weeks scheduled by SW with MH provider. Clear for Discharge: Adequate Clinical Respons, Acceptable Safety Profile, Low Utility of Inpt Care Inpatient DSM-IV Dx: 1. 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 2. r/o PD vs DLB. 3. r/o Malingering. 4. r/o Factitious Disorder Imposed on Self Discharge Planning - Discharge Planning Discharge Plan: Outpatient Follow Up Outpatient Program: [facility] Recommendations for Continuing Care: Medication Management Discharge Planning: Prescriptions provided for discharge [x] Yes [] No Follow up care details as per social work arrangements. Patient response to discharge plan: [] eager for discharge [x] agreeable with discharge plan [] ambivalent about discharge [] disagrees with discharge today
== END 2017-01-09 13:31 | disposition home or self-care (01) | DRG 751 ==
LOC: BSU 17:16
PROVIDERS: ADMIT Psychiatry & Neurology Psychiatry; ATTEND Psychiatry & Neurology Psychiatry
DX: F33.2 Major depressive disorder, recurrent severe without psychotic features (principal); E11.9 Type 2 diabetes mellitus without complications; G47.33 Obstructive sleep apnea (adult) (pediatric); E78.5 Hyperlipidemia, unspecified; I10 Essential (primary) hypertension; Z86.73 Personal history of transient ischemic attack (TIA), and cerebral infarction without residual deficits; Z88.0 Allergy status to penicillin; Z81.8 Family history of other mental and behavioral disorders
CPT/HCPCS: 74020; 90853; 93005; 99222; 99231; 99238; A9270-GY

== ENCOUNTER 2019-10-27 10:32 | Observation (INO) ==
[2019-10-27 13:36] LABS: ABS Lymphocytes 0.9 10^3/ul (1.0-4.8); ABS Neutrophils 11.9 10^3/ul (1.5-7.7); Eosinophil % 0.1 %; Hematocrit 44 % (42-52); Hemoglobin 15.1 g/dL (14.0-18.0); Lymphocyte % 6.5 %; Mean Corpuscular HGB Conc 34 g/dL (31-36); Mean Corpuscular Hemoglobin 30 pg (27-31); Mean Corpuscular Volume 86 fL (80-94); Platelet Count 132 10^3/uL (150-450); Red Blood Count 5.09 10^6 /uL (4.18-5.48); Red Cell Distribution Width 14 % (10-15); White Blood Count 13.9 10^3/uL (3.5-10.8)
[2019-10-27 13:52] LABS: Albumin 3.7 g/dL (3.2-5.2); Albumin/Globulin Ratio 1.1 (1-3); BUN/Creatinine Ratio 16.8 (8-20); Calcium 9.3 mg/dL (8.6-10.3); EGFR African American 69.1 (>60); EGFR Non-African American 57.1 (>60); Globulin 3.5 g/dL (2-4); Potassium 3.8 mmol/L (3.5-5.0); Total Bilirubin 2.2 mg/dL (0.2-1.0); Total Protein 7.2 g/dL (6.4-8.9)
[2019-10-27] MEDS ORDERED: NS 0.9% 1000 ml BAG 1,000 ML IV ONE (15:13)
[2019-10-27] MEDS ORDERED: metroNIDAZOLE IV 500 MG/100ML 500 MG/100 ML BAG IVPB ONE (15:13)
[2019-10-27] MEDS ORDERED: Cefepime 2 GM in Dextrose 2 GM/50 ML BAG IV ONE (15:13)
[2019-10-27 15:45] LABS: C Reactive Protein 286.11 mg/L (<8.01)
[2019-10-27] MEDS ORDERED: HYDROmorphone 1 MG/1 ML SYRINGE IV SLOW PU PRN (16:46)
[2019-10-27] MEDS ORDERED: Ondansetron 4 mg VIAL 2 MG/ML 2 ml VIAL IV PRN (16:46)
[2019-10-27] MEDS ORDERED: Dextrose 50% Syringe 50 ml 25 GM/50 ML SYRINGE IV PUSH PRN (16:59)
[2019-10-27] MEDS ORDERED: Cefepime 2 GM in Dextrose 2 GM/50 ML BAG IV SCH (17:00)
[2019-10-27] MEDS: Lactated Ringers 1000 ml BAG 1,000 ML IV SCH (19:11)
[2019-10-27 23:20] LABS: Urine Appearance Clear; Urine Bilirubin Negative (Negative); Urine Blood Negative (Negative); Urine Color Amber; Urine Glucose 1+(50 mg/dL) (Negative); Urine Ketones Trace (Negative); Urine Nitrite Negative (Negative); Urine Protein 1+(30 mg/dL) (Negative); Urine Specific Gravity 1.027 (1.010-1.030); Urine Urobilinogen Negative (Negative)
[2019-10-27 23:24] LABS: Urine Bacteria Absent (Absent); Urine Red Blood Cell Trace(0-2/hpf) (Absent); Urine Squamous Epithelial Cell Present (Absent); Urine White Blood Cell Trace(0-5/hpf) (Absent)
[2019-10-28] MEDS: metroNIDAZOLE IV 500 MG/100ML 500 MG/100 ML BAG IVPB SCH ×3 (00:54→23:00)
[2019-10-28] MEDS: Cefepime 2 GM in Dextrose 2 GM/50 ML BAG IV SCH ×2 (04:00→22:05)
[2019-10-28] MEDS: Lactated Ringers 1000 ml BAG 1,000 ML IV SCH ×2 (04:07→20:36)
[2019-10-28 06:17] LABS: ABS Eosinophils 0.1 10^3/ul (0-0.6); ABS Lymphocytes 1.4 10^3/ul (1.0-4.8); ABS Monocytes 0.9 10^3/ul (0-0.8); ABS Neutrophils 9.2 10^3/ul (1.5-7.7); Eosinophil % 1.2 %; Hematocrit 39 % (42-52); Hemoglobin 13.4 g/dL (14.0-18.0); Lymphocyte % 12.2 %; Mean Corpuscular HGB Conc 35 g/dL (31-36); Mean Corpuscular Hemoglobin 30 pg (27-31); Mean Corpuscular Volume 86 fL (80-94); Mean Platelet Volume 10.4 fL (7.4-10.4); Platelet Count 137 10^3/uL (150-450); Red Blood Count 4.51 10^6 /uL (4.18-5.48); Red Cell Distribution Width 14 % (10-15); White Blood Count 11.7 10^3/uL (3.5-10.8)
[2019-10-28 06:25] LABS: BUN/Creatinine Ratio 21.1 (8-20); Calcium 8.2 mg/dL (8.6-10.3); EGFR African American 122.7 (>60); EGFR Non-African American 101.4 (>60); Globulin 3.1 g/dL (2-4); Indirect Bilirubin 1.1 mg/dL (0.3-1.0); Potassium 3.3 mmol/L (3.5-5.0); Total Bilirubin 1.6 mg/dL (0.2-1.0); Total Protein 6.1 g/dL (6.4-8.9)
[2019-10-28] MEDS ORDERED: KCL 20 MEQ/100 ML IVPREMIX 20 MEQ/100 ML BAG IV ONE (14:45)
[2019-10-28] MEDS ORDERED: Acetaminophen IV 1 GM/100ML 100 ML ONE (16:17)
[2019-10-28] MEDS ORDERED: Propofol 10 MG/ML 20 ML BTL ONE (16:17)
[2019-10-28] MEDS ORDERED: Dexamethasone IV 4 MG/ML VIAL 1 ml VIAL ONE (16:17)
[2019-10-28] MEDS ORDERED: fentaNYL 100 mcg/2 ml 50 MCG/ML VIAL ONE (16:17)
[2019-10-28] MEDS ORDERED: Ondansetron 4 mg VIAL 2 MG/ML 2 ml VIAL ONE (16:17)
[2019-10-28] MEDS ORDERED: Bupivacaine 0.25% EPI 200,000 30 ML SDV ONE (16:41)
[2019-10-28] MEDS ORDERED: fentaNYL 100 mcg/2 ml 50 MCG/ML VIAL IV PRN (18:32)
[2019-10-28] MEDS ORDERED: Prochlorperazine 5 mg/ml 2 ml VIAL (10 mg) IV PRN (18:32)
[2019-10-28] MEDS ORDERED: Naloxone 0.4 mg VIAL 0.4 mg/ml 1 ml VIAL IV PRN (18:32)
[2019-10-28] MEDS ORDERED: HYDROmorphone 0.5 MG/0.5 ML SYRINGE IV SLOW PU PRN ×2 (20:26→23:00)
[2019-10-29] MEDS: metroNIDAZOLE IV 500 MG/100ML 500 MG/100 ML BAG IVPB SCH ×2 (01:20→06:30)
[2019-10-29] MEDS: Cefepime 2 GM in Dextrose 2 GM/50 ML BAG IV SCH ×2 (01:20→08:35)
[2019-10-29] MEDS ORDERED: Heparin 5000 UNITS/ML 1 mL VIAL SUBCUT SCH (06:00)
[2019-10-29] MEDS: Lactated Ringers 1000 ml BAG 1,000 ML IV SCH (06:35)
[2019-10-29 07:59] VITALS: BP 148/75
== END 2019-10-29 10:15 | disposition home or self-care (01) ==
LOC: ED 10:32 → SSU 10:32
PROVIDERS: ADMIT Surgery Surgical Critical Care; ATTEND Surgery

== ENCOUNTER 2020-09-04 13:37 | Inpatient (IN) ==
[2020-09-04 14:40] LABS: ABS Lymphocytes 1.9 10^3/ul (1.0-4.8); ABS Monocytes 0.9 10^3/ul (0-0.8); ABS Neutrophils 6.7 10^3/ul (1.5-7.7); Eosinophil % 0.4 %; Hematocrit 41 % (42-52); Hemoglobin 14.4 g/dL (14.0-18.0); Lymphocyte % 19.9 %; Mean Corpuscular HGB Conc 35 g/dL (31-36); Mean Corpuscular Hemoglobin 30 pg (27-31); Mean Corpuscular Volume 85 fL (80-94); Mean Platelet Volume 9.2 fL (7.4-10.4); Platelet Count 192 10^3/uL (150-450); Red Blood Count 4.86 10^6 /uL (4.18-5.48); Red Cell Distribution Width 14 % (10-15); White Blood Count 9.6 10^3/uL (3.5-10.8)
[2020-09-04 15:02] LABS: Troponin I 7.49 ng/mL (<0.03)
[2020-09-04 15:15] LABS: ALT 16 U/L (7-52); AST 18 U/L (13-39); Albumin 3.6 g/dL (3.2-5.2); Albumin/Globulin Ratio 0.9 (1-3); Alkaline Phosphatase 82 U/L (35-149); Anion Gap 9 mmol/L (2-11); Blood Urea Nitrogen 20 mg/dL (6-24); CO2 Carbon Dioxide 24 mmol/L (22-32); Calcium 9.1 mg/dL (8.6-10.3); Chloride 101 mmol/L (101-111); EGFR African American 90.2 (>60); EGFR Non-African American 74.5 (>60); Globulin 3.8 g/dL (2-4); Glucose 226 mg/dL (70-100); Magnesium 1.9 mg/dL (1.9-2.7); Potassium 3.7 mmol/L (3.5-5.0); Sodium 134 mmol/L (135-145); Total Protein 7.4 g/dL (6.4-8.9)
[2020-09-04] MEDS ORDERED: Heparin DRIP 25,000 UNITS BAG 25,000 UNITS/500 ML BAG ONE (15:43)
[2020-09-04] MEDS: Heparin DRIP 25,000 UNITS BAG 25,000 UNITS/500 ML BAG IV SCH (15:48)
[2020-09-04] MEDS: Heparin 5000 UNITS/ML 1 mL VIAL IV SCH ×2 (15:53→22:57)
[2020-09-04] MEDS ORDERED: Iodixanol (CONTRAST) 320 MG/ML 100 ML SDV IV ONE (16:00)
[2020-09-04 16:20] LABS: Troponin I 7.45 ng/mL (<0.03)
[2020-09-04] MEDS ORDERED: NS 0.9% 1000 ml BAG 1,000 ML IV ONE (17:44)
[2020-09-04] MEDS ORDERED: NORMOSOL-R pH 7.4 1000 mL BAG 1,000 ML IV SCH (19:00)
[2020-09-04 19:45] LABS: Indirect Bilirubin 1.2 mg/dL (0.3-1.0)
[2020-09-04 19:49] LABS: Urine Appearance Clear; Urine Bilirubin Negative (Negative); Urine Blood Negative (Negative); Urine Color Yellow; Urine Glucose 1+(50 mg/dL) (Negative); Urine Ketones Negative (Negative); Urine Nitrite Negative (Negative); Urine Protein Negative (Negative); Urine Urobilinogen Positive (Negative)
[2020-09-04] MEDS ORDERED: Dextrose 50% Syringe 50 ml 25 GM/50 ML SYRINGE IV PUSH PRN (19:57)
[2020-09-04 20:43] LABS: Urine Specific Gravity > 1.060 (1.002-1.030)
[2020-09-04 23:54] LABS: Troponin I 6.28 ng/mL (<0.03)
[2020-09-05 01:32] LABS: Troponin I 5.65 ng/mL (<0.03)
[2020-09-05 05:57] LABS: Albumin/Globulin Ratio 0.9 (1-3); Calcium 8.3 mg/dL (8.6-10.3); EGFR Non-African American 96.7 (>60); Globulin 3.2 g/dL (2-4); HDL Cholesterol 27.7 mg/dL; Magnesium 1.8 mg/dL (1.9-2.7); Phosphorus 2.9 mg/dL (2.5-5.0); Potassium 3.4 mmol/L (3.5-5.0); Total Bilirubin 0.9 mg/dL (0.2-1.0); Total Protein 6.2 g/dL (6.4-8.9)
[2020-09-05] MEDS ORDERED: Potassium Chlor 20 meq TAB.ER PO ONE ×2 (06:12→06:57)
[2020-09-05 06:16] LABS: ABS Basophils 0.1 10^3/ul (0-0.2); ABS Eosinophils 0.2 10^3/ul (0-0.6); ABS Monocytes 0.7 10^3/ul (0-0.8); ABS Neutrophils 3.6 10^3/ul (1.5-7.7); Eosinophil % 2.6 %; Hematocrit 35 % (42-52); Lymphocyte % 31.1 %; Mean Corpuscular HGB Conc 35 g/dL (31-36); Mean Corpuscular Hemoglobin 29 pg (27-31); Mean Corpuscular Volume 85 fL (80-94); Mean Platelet Volume 8.9 fL (7.4-10.4); Platelet Count 159 10^3/uL (150-450); Red Blood Count 4.08 10^6 /uL (4.18-5.48); Red Cell Distribution Width 14 % (10-15); White Blood Count 6.5 10^3/uL (3.5-10.8)
[2020-09-05] MEDS ORDERED: Perflutren Lipid Microsphere 3 ML VIAL ONE (08:35)
[2020-09-06 06:03] LABS: Calcium 8.5 mg/dL (8.6-10.3); EGFR African American 112.1 (>60); EGFR Non-African American 92.6 (>60); Magnesium 1.8 mg/dL (1.9-2.7); Phosphorus 3.5 mg/dL (2.5-5.0); Potassium 3.8 mmol/L (3.5-5.0)
[2020-09-06] MEDS: Heparin 5000 UNITS/ML 1 mL VIAL IV SCH (06:54)
[2020-09-06] MEDS ORDERED: Magnesium Sulfate 2 gm BAG 2 GM/50 ML BAG IVPB ONE (08:23)
[2020-09-06] MEDS ORDERED: Potassium Chlor 20 meq TAB.ER PO ONE (08:42)
[2020-09-06] MEDS: Heparin DRIP 25,000 UNITS BAG 25,000 UNITS/500 ML BAG IV SCH (13:49)
[2020-09-07] MEDS ORDERED: NS 0.9% 250 ml 250 ML IV SCH (00:01)
[2020-09-07 03:00] LABS: ABS Basophils 0.1 10^3/ul (0-0.2); ABS Eosinophils 0.2 10^3/ul (0-0.6); ABS Lymphocytes 2.3 10^3/ul (1.0-4.8); ABS Monocytes 0.5 10^3/ul (0-0.8); Eosinophil % 4.6 %; Hematocrit 37 % (42-52); Hemoglobin 12.4 g/dL (14.0-18.0); Lymphocyte % 45.1 %; Mean Corpuscular HGB Conc 34 g/dL (31-36); Mean Corpuscular Hemoglobin 29 pg (27-31); Mean Corpuscular Volume 85 fL (80-94); Mean Platelet Volume 8.6 fL (7.4-10.4); Nucleated Red Blood Cells % 0.1; Platelet Count 195 10^3/uL (150-450); Red Blood Count 4.31 10^6 /uL (4.18-5.48); Red Cell Distribution Width 14 % (10-15)
[2020-09-07 03:11] LABS: Calcium 8.5 mg/dL (8.6-10.3); Magnesium 1.9 mg/dL (1.9-2.7); Potassium 4.2 mmol/L (3.5-5.0)
[2020-09-07 03:16] LABS: EGFR African American 104.7 (>60); EGFR Non-African American 86.5 (>60)
[2020-09-07] MEDS ORDERED: diPHENhydraMINE 25 mg TAB PO PRN (08:24)
[2020-09-07] MEDS ORDERED: NS 0.9% 1000 ml BAG 1,000 ML IV SCH ×2 (08:30→13:00)
[2020-09-07] MEDS ORDERED: VERAPAMIL 2.5 MG/ML 2 ML VIAL ** 5 mg/2 ml ONE (10:30)
[2020-09-07] MEDS ORDERED: nitroGLYCERIN DRIP 25,000 MCG/250 ML BTL ONE (10:30)
[2020-09-07] MEDS ORDERED: Heparin 1,000 UNIT/ML 10 ml (10,000 UNITS) CATHLAB/DIALYSIS ONE (10:30)
[2020-09-07] MEDS ORDERED: Lidocaine 1% VIAL 10 MG/ML VIAL ONE (10:30)
[2020-09-07] MEDS ORDERED: Heparin 2 UNITS/ML 1000 mls 2,000 ML IV ONE (10:30)
[2020-09-07] MEDS ORDERED: Midazolam 5 mg/5 ml VIAL 1 mg/ml 5 ml VIAL (5 mg) ONE (10:30)
[2020-09-07] MEDS ORDERED: fentaNYL 100 mcg/2 ml 50 MCG/ML VIAL ONE (10:30)
[2020-09-07] MEDS ORDERED: Iohexol 350 (CONTRAST) 200 ML MDV IV ONE ×2 (10:31→12:08)
[2020-09-07] MEDS ORDERED: Bivalirudin 250 MG VIAL ONE (12:07)
[2020-09-08 05:49] LABS: Hematocrit 39 % (42-52); Hemoglobin 13.1 g/dL (14.0-18.0); Mean Corpuscular HGB Conc 34 g/dL (31-36); Mean Corpuscular Hemoglobin 29 pg (27-31); Mean Corpuscular Volume 86 fL (80-94); Mean Platelet Volume 8.5 fL (7.4-10.4); Platelet Count 237 10^3/uL (150-450); Red Blood Count 4.53 10^6 /uL (4.18-5.48); Red Cell Distribution Width 14 % (10-15); White Blood Count 5.9 10^3/uL (3.5-10.8)
[2020-09-08 06:10] LABS: Calcium 8.8 mg/dL (8.6-10.3); EGFR African American 103.3 (>60); EGFR Non-African American 85.4 (>60); Magnesium 1.9 mg/dL (1.9-2.7); Phosphorus 3.1 mg/dL (2.5-5.0); Potassium 4.3 mmol/L (3.5-5.0)
[2020-09-08] MEDS ORDERED: Magnesium Sulfate IV 1GM/100ML 1 GM/100 ML BAG IV ONE (06:14)
[2020-09-08 13:15] VITALS: BP 135/77
== END 2020-09-08 13:15 | disposition home or self-care (01) ==
LOC: ED 13:37 → ICU 18:43 → MEDTELE 09-05 12:27 → ICU 09-07 12:43
PROVIDERS: ADMIT Internal Medicine Critical Care Medicine; ATTEND Internal Medicine

== ENCOUNTER 2020-12-17 14:57 | Inpatient (IN) ==
[2020-12-17 15:25] LABS: ABS Eosinophils 0.3 10^3/ul (0-0.6); ABS Lymphocytes 2.2 10^3/ul (1.0-4.8); ABS Monocytes 0.6 10^3/ul (0-0.8); ABS Neutrophils 3.7 10^3/ul (1.5-7.7); Eosinophil % 4.9 %; Hematocrit 41 % (42-52); Hemoglobin 13.6 g/dL (14.0-18.0); Mean Corpuscular HGB Conc 33 g/dL (31-36); Mean Corpuscular Hemoglobin 29 pg (27-31); Mean Corpuscular Volume 86 fL (80-94); Mean Platelet Volume 8.2 fL (7.4-10.4); Nucleated Red Blood Cells % 0.1; Platelet Count 241 10^3/uL (150-450); Red Blood Count 4.75 10^6 /uL (4.18-5.48); Red Cell Distribution Width 14 % (10-15)
[2020-12-17 15:39] LABS: INR 1.09 (0.86-1.15)
[2020-12-17 15:43] LABS: ALT 12 U/L (7-52); AST 13 U/L (13-39); Albumin 3.7 g/dL (3.2-5.2); Alkaline Phosphatase 104 U/L (35-149); Anion Gap 9 mmol/L (2-11); Blood Urea Nitrogen 16 mg/dL (6-24); CO2 Carbon Dioxide 24 mmol/L (22-32); Calcium 9.7 mg/dL (8.6-10.3); Chloride 105 mmol/L (101-111); EGFR African American 98.1 (>60); EGFR Non-African American 81.1 (>60); Globulin 3.8 g/dL (2-4); Glucose 124 mg/dL (70-100); Potassium 4.4 mmol/L (3.5-5.0); Sodium 138 mmol/L (135-145); Total Protein 7.5 g/dL (6.4-8.9)
[2020-12-17 15:54] LABS: Troponin I 0.06 ng/mL (<0.03)
[2020-12-17 18:38] LABS: Troponin I 0.05 ng/mL (<0.03)
[2020-12-17] MEDS ORDERED: Heparin 5000 UNITS/ML 1 mL VIAL IV SCH (20:00)
[2020-12-17] MEDS ORDERED: Heparin DRIP 25,000 UNITS BAG 25,000 UNITS/500 ML BAG IV SCH (20:00)
[2020-12-17 21:42] LABS: Troponin I 0.05 ng/mL (<0.03)
[2020-12-17 22:20] LABS: Rapid COVID-19 Molecular Undetected (Undetected)
[2020-12-18 04:49] LABS: ABS Eosinophils 0.3 10^3/ul (0-0.6); ABS Lymphocytes 1.9 10^3/ul (1.0-4.8); ABS Monocytes 0.5 10^3/ul (0-0.8); ABS Neutrophils 2.4 10^3/ul (1.5-7.7); Eosinophil % 5.9 %; Hematocrit 38 % (42-52); Hemoglobin 12.8 g/dL (14.0-18.0); Lymphocyte % 37.2 %; Mean Corpuscular HGB Conc 34 g/dL (31-36); Mean Corpuscular Hemoglobin 29 pg (27-31); Mean Corpuscular Volume 84 fL (80-94); Mean Platelet Volume 8.1 fL (7.4-10.4); Platelet Count 208 10^3/uL (150-450); Red Blood Count 4.47 10^6 /uL (4.18-5.48); Red Cell Distribution Width 14 % (10-15); White Blood Count 5.1 10^3/uL (3.5-10.8)
[2020-12-18] MEDS ORDERED: Dextrose 50% Syringe 50 ml 25 GM/50 ML SYRINGE IV PUSH PRN (04:54)
[2020-12-18 04:55] LABS: INR 1.22 (0.86-1.15)
[2020-12-18 05:10] LABS: Anion Gap 7 mmol/L (2-11); Blood Urea Nitrogen 15 mg/dL (6-24); CO2 Carbon Dioxide 23 mmol/L (22-32); Calcium 9.1 mg/dL (8.6-10.3); Chloride 106 mmol/L (101-111); Cholesterol 96 mg/dL; EGFR African American 134.5 (>60); EGFR Non-African American 111.2 (>60); Glucose 124 mg/dL (70-100); HDL Cholesterol 29.8 mg/dL; LDL Cholesterol 54 mg/dL; Potassium 3.5 mmol/L (3.5-5.0); Sodium 136 mmol/L (135-145); Triglycerides 63 mg/dL
[2020-12-18 05:36] LABS: Troponin I 0.06 ng/mL (<0.03)
[2020-12-18 08:49] LABS: Magnesium 1.9 mg/dL (1.9-2.7)
[2020-12-18 08:57] LABS: % Iron Saturation 15 % (15-55); Iron 39 ug/dL (50-212); Total Iron Binding Capacity 266 mcg/dL (250-450); Transferrin 190 mg/dL (203-362); Unsaturated Iron Binding < 251 ug/dL
[2020-12-18 09:17] LABS: Ferritin 260.4 ng/mL (24-336)
[2020-12-18 09:22] LABS: Vitamin B12 293 pg/mL (180-914)
[2020-12-18 09:29] LABS: C Reactive Protein 57.63 mg/L (<8.01); Creatine Kinase 22 U/L (10-223)
[2020-12-18] MEDS: Potassium Chloride LIQUID 20 MEQ/15 ML LIQUID PO SCH ×2 (09:52→13:04)
[2020-12-18 13:15] LABS: Troponin I 0.06 ng/mL (<0.03)
[2020-12-18] MEDS ORDERED: Perflutren Lipid Microsphere 3 ML VIAL ONE (13:20)
[2020-12-18 14:51] LABS: TSH Ultra Thyroid Stim Horm 3.14 mcIU/mL (0.34-5.60)
[2020-12-18 15:22] VITALS: BP 93/63
[2020-12-18] MEDS ORDERED: Regadenoson 0.4 MG/5 ML SYRINGE ONE (15:49)
== END 2020-12-18 17:35 | disposition home or self-care (01) | DRG 313 ==
LOC: ED 14:57 → MEDTELE 23:25 → SUATTDRO 23:25 → MEDTELE 12-18 01:00
PROVIDERS: ADMIT Internal Medicine; ATTEND Internal Medicine